=== PATIENT | male | born 1965 | race Caucasian/White ===

== ENCOUNTER 2017-08-30 05:32 | Inpatient (IN) | payer BC ==
--- NOTE | 2017-08-30 05:54 | ED ---
General Adult HPI - General Source: patient, RN notes reviewed Mode of arrival: ambulatory Limitations: no limitations <Shar Bell - Last Filed: 08/30/17 07:21> <Shar Chan - Last Filed: 08/30/17 09:40> - General Chief complaint: Urogenital Stated complaint: GROIN PAIN Time Seen by Provider: 08/30/17 05:35 - History of Present Illness Initial comments: This is a 51-year-old male who presents emergency Department complaining that he has some tenderness in the perineum area slightly to the left midline. Patient states this area began to hurt approximate one week ago. Patient states he seemed DrGamaliel Hdeze and then placed on antibiotics. Patient states the pain seems to be getting worse and his scrotum has become swollen and quite enlarged. Patient states the scrotum is not tender to palpation but is considerably larger. Patient has not noted any fever or chills. Patient denies any abdominal pain patient denies any nausea or vomiting. Patient has not had any drainage from any area. (Shar Bell) - Related Data Home Medications Medication Instructions Recorded Confirmed Albuterol Inhaler [Ventolin Hfa 1 - 2 puff INHALATION RT-Q6H PRN 12/28/14 Inhaler] [place]-3 Fatty Acids/Fish Oil [Fish 1 cap PO DAILY 12/28/14 08/30/17 Oil 1,000 mg Softgel] Omeprazole [PriLOSEC] 20 mg PO AC-BRKFST 12/28/14 08/30/17 Bisoprolol Fumarate [Zebeta] 10 mg PO DAILY 08/30/17 08/30/17 Ciprofloxacin HCl [Cipro] 500 mg PO Q12HR 08/30/17 08/30/17 Hydrochlorothiazide [Hydrodiuril] 25 mg PO DAILY 08/30/17 08/30/17 Olmesartan Medoxomil 40 mg PO DAILY 08/30/17 08/30/17 amLODIPine [Norvasc] 10 mg PO DAILY 08/30/17 08/30/17 Allergies Allergy/AdvReac Type Severity Reaction Status Date / Time No Known Allergies Allergy Verified 08/30/17 07:41 Review of Systems ROS Other: All systems not noted in ROS Statement are negative. <Shar Bell - Last Filed: 08/30/17 07:21> ROS Other: All systems not noted in ROS Statement are negative. <Shar Chan - Last Filed: 08/30/17 09:40> ROS Statement: Those systems with pertinent positive or pertinent negative responses have been documented in the HPI. Past Medical History Past Medical History: Hyperlipidemia, Hypertension Additional Past Medical History / Comment(s): diverticulitis History of Any Multi-Drug Resistant Organisms: None Reported Past Surgical History: Tonsillectomy Additional Past Surgical History / Comment(s): tail bone abscess, fistula, wisdom teeth Past Anesthesia/Blood Transfusion Reactions: No Reported Reaction Past Psychological History: No Psychological Hx Reported Smoking Status: Current every day smoker Past Alcohol Use History: Occasional Past Drug Use History: Marijuana - Past Family History Father Family Medical History: Cancer Additional Family Medical History / Comment(s): leukemia Mother Family Medical History: Cancer Additional Family Medical History / Comment(s): lung cancer Brother(s) Family Medical History: Cancer Additional Family Medical History / Comment(s): prostate cancer <Shar Bell - Last Filed: 08/30/17 07:21> General Exam Limitations: no limitations <Shar Bell - Last Filed: 08/30/17 07:21> <Shar Chan - Last Filed: 08/30/17 09:40> - General Exam Comments Initial Comments: GENERAL Patient is well-developed and well-nourished. Patient is in mild distress. EYES Patient's pupils are equal and round. Extraocular motion is intact SKIN Unremarkable NEURO The patient is alert and oriented 3 PYSCH Patient has normal interpersonal interactions. ABDOMINAL Patient has no abdominal tenderness MUSCULOSKELETAL All 4 times and full range of motion. GENITALIA Patient has some tenderness just to the left of midline in the perineum there is no area of fluctuance noted the scrotum is very edematous and nonpainful. ( Shar Bell) Vital Signs 08/30/17 08/30/17 05:38 09:17 Temperature 97.8 F Pulse Rate 98 86 Respiratory 18 14 Rate Blood Pressure 152/72 136/62 O2 Sat by Pulse 96 97 Oximetry Medical Decision Making <Shar Bell - Last Filed: 08/30/17 07:21> - Lab Data Result diagrams: 08/30/17 06:08 08/30/17 06:08 <Shar Chan B - Last Filed: 08/30/17 09:40> - Medical Decision Making Dr. Chan will be taking over the care of this patient at 7 AM (Shar Bell) - Lab Data Lab Results 08/30/17 08/30/17 08/30/17 Range/Units 06:08 06:08 06:08 WBC 22.9 H (3.8-10.6) k/uL RBC 4.16 L (4.30-5.90) m/uL Hgb 13.8 (13.0-17.5) gm/dL Hct 41.3 (39.0-53.0) % MCV 99.3 (80.0-100.0) fL MCH 33.3 (25.0-35.0) pg MCHC 33.5 (31.0-37.0) g/dL RDW 12.2 (11.5-15.5) % Plt Count 299 (150-450) k/uL Neutrophils % 81 % Lymphocytes % 8 % Monocytes % 9 % Eosinophils % 1 % Basophils % 0 % Neutrophils # 18.5 H (1.3-7.7) k/uL Lymphocytes # 1.8 (1.0-4.8) k/uL Monocytes # 2.1 H (0-1.0) k/uL Eosinophils # 0.1 (0-0.7) k/uL Basophils # 0.1 (0-0.2) k/uL Sodium 131 L (137-145) mmol/L Potassium 3.5 (3.5-5.1) mmol/L Chloride 93 L (98-107) mmol/L Carbon Dioxide 26 (22-30) mmol/L Anion Gap 12 mmol/L BUN 9 (9-20) mg/dL Creatinine 0.74 (0.66-1.25) mg/dL Est GFR (MDRD) Af Amer >60 (>60 ml/min/1.73 sqM) Est GFR (MDRD) Non-Af >60 (>60 ml/min/1.73 sqM) Glucose 111 H (74-99) mg/dL Plasma Lactic Acid Matthew (0.7-2.0) mmol/L Calcium 8.9 (8.4-10.2) mg/dL Total Bilirubin 0.6 (0.2-1.3) mg/dL AST 14 L (17-59) U/L ALT 20 L (21-72) U/L Alkaline Phosphatase 89 (38-126) U/L Total Protein 6.3 (6.3-8.2) g/dL Albumin 3.2 L (3.5-5.0) g/dL Urine Color Yellow Urine Appearance Clear (Clear) Urine pH 6.0 (5.0-8.0) Ur Specific [place] 1.017 (1.001-1.035) Urine Protein 1+ H (Negative) Urine Glucose (UA) Negative (Negative) Urine Ketones Negative (Negative) Urine Blood Trace H (Negative) Urine Nitrite Negative (Negative) Urine Bilirubin Negative (Negative) Urine Urobilinogen <2.0 (<2.0) mg/dL Ur Leukocyte Esterase Negative (Negative) Urine RBC <1 (0-5) /hpf Urine WBC 2 (0-5) /hpf Urine Mucus Occasional H (None) /hpf 08/30/17 Range/Units 06:08 WBC (3.8-10.6) k/uL RBC (4.30-5.90) m/uL Hgb (13.0-17.5) gm/dL Hct (39.0-53.0) % MCV (80.0-100.0) fL MCH (25.0-35.0) pg MCHC (31.0-37.0) g/dL RDW (11.5-15.5) % Plt Count (150-450) k/uL Neutrophils % % Lymphocytes % % Monocytes % % Eosinophils % % Basophils % % Neutrophils # (1.3-7.7) k/uL Lymphocytes # (1.0-4.8) k/uL Monocytes # (0-1.0) k/uL Eosinophils # (0-0.7) k/uL Basophils # (0-0.2) k/uL Sodium (137-145) mmol/L Potassium (3.5-5.1) mmol/L Chloride (98-107) mmol/L Carbon Dioxide (22-30) mmol/L Anion Gap mmol/L BUN (9-20) mg/dL Creatinine (0.66-1.25) mg/dL Est GFR (MDRD) Af Amer (>60 ml/min/1.73 sqM) Est GFR (MDRD) Non-Af (>60 ml/min/1.73 sqM) Glucose (74-99) mg/dL Plasma Lactic Acid Matthew 1.2 (0.7-2.0) mmol/L Calcium (8.4-10.2) mg/dL Total Bilirubin (0.2-1.3) mg/dL AST (17-59) U/L ALT (21-72) U/L Alkaline Phosphatase (38-126) U/L Total Protein (6.3-8.2) g/dL Albumin (3.5-5.0) g/dL Urine Color Urine Appearance (Clear) Urine pH (5.0-8.0) Ur Specific [place] (1.001-1.035) Urine Protein (Negative) Urine Glucose (UA) (Negative) Urine Ketones (Negative) Urine Blood (Negative) Urine Nitrite (Negative) Urine Bilirubin (Negative) Urine Urobilinogen (<2.0) mg/dL Ur Leukocyte Esterase (Negative) Urine RBC (0-5) /hpf Urine WBC (0-5) /hpf Urine Mucus (None) /hpf Disposition <Shar Bell - Last Filed: 08/30/17 07:21> <Shar Chan - Last Filed: 08/30/17 09:40> Clinical Impression: Perineal abscess, Failure of outpatient treatment Disposition: ADMITTED IP TO THIS [facility] Condition: Good Referrals: Danielle Fernández III, MD [Primary Care Provider] - 1-2 days
[2017-08-30] MEDS ORDERED: RX INFO: IV CONTRAST WAS GIVEN 1 EACH MISC MISCELLANE PRN (07:00)
[2017-08-30 07:19] LABS: ALT 20 U/L (21-72); AST 14 U/L (17-59); Albumin 3.2 g/dL (3.5-5.0); Alkaline Phosphatase 89 U/L (38-126); Anion Gap 12 mmol/L; Blood Urea Nitrogen 9 mg/dL (9-20); Calcium 8.9 mg/dL (8.4-10.2); Carbon Dioxide 26 mmol/L (22-30); Chloride 93 mmol/L (98-107); Glucose 111 mg/dL (74-99); Potassium 3.5 mmol/L (3.5-5.1); Sodium 131 mmol/L (137-145); Total Bilirubin 0.6 mg/dL (0.2-1.3); Total Protein 6.3 g/dL (6.3-8.2)
[2017-08-30 07:26] LABS: Basophils # (A) 0.1 k/uL (0-0.2); Basophils % (A) 0 %; Eosinophils # (A) 0.1 k/uL (0-0.7); Eosinophils % (A) 1 %; HCT 41.3 % (39.0-53.0); HGB 13.8 gm/dL (13.0-17.5); Lymphocytes # (A) 1.8 k/uL (1.0-4.8); Lymphocytes % (A) 8 %; MCH 33.3 pg (25.0-35.0); MCHC 33.5 g/dL (31.0-37.0); MCV 99.3 fL (80.0-100.0); Mean Platelet Volume 7.6; Monocytes # (A) 2.1 k/uL (0-1.0); Monocytes % (A) 9 %; Neutrophils # (A) 18.5 k/uL (1.3-7.7); Neutrophils % (A) 81 %; Platelet Count 299 k/uL (150-450); RBC 4.16 m/uL (4.30-5.90); RDW 12.2 % (11.5-15.5); WBC 22.9 k/uL (3.8-10.6)
[2017-08-30 07:34] LABS: Appearance,Urine Clear (Clear); Bilirubin,Urine Negative (Negative); Blood,Urine Trace (Negative); Color,Urine Yellow; Glucose,Urine (UA) Negative (Negative); Ketones,Urine Negative (Negative); Leukocyte Esterase,Urine Negative (Negative); Mucus,Urine Occasional /hpf; Nitrite,Urine Negative (Negative); Protein,Urine 1+ (Negative); RBC,Urine <1 /hpf (0-5); Specific Gravity,Urine 1.017 (1.001-1.035); Urobilinogen,Urine <2.0 mg/dL (<2.0); WBC,Urine 2 /hpf (0-5)
[2017-08-30] MEDS ORDERED: HYDROmorphone 2 MG/ML 1 ML SYRINGE IVP STA (07:56)
--- NOTE | 2017-08-30 08:19 | CT ---
EXAMINATION TYPE: CT pelvis w con DATE OF EXAM: 08/30/2017 COMPARISON: CT abdomen and pelvis December 27, 2014 HISTORY: Groin pain, Scrotum is hard CT DLP: 3297 mGycm Automated exposure control for dose reduction was used. CONTRAST: Performed with IV Contrast, patient injected with 100 ml mL of Omnipaque 300. FINDINGS: Some diverticula are seen scattered throughout the colon most prominent at sigmoid colon. There is no CT evidence for acute diverticulitis. There is simple appearing 2 cm cyst posteriorly mid pole level right kidney. Bladder is unremarkable. There are small fat-containing inguinal hernias bilaterally r edemonstrated. Anterior to the anus there is a thin-walled fluid collection to the left of midline measuring 8.8 oumar timeters x AP 3.5 cm transversely axial image 67 by approximately 6.2 cm craniocaudal dimension coron al image 40 at base of penis posterior and medial to the left inguinal canal and just inferior to pub ic symphysis. IMPRESSION: MODERATE-SIZED THIN-WALLED FLUID COLLECTION DETAILED ABOVE LEFT ASPECT BASE OF PENIS AT LEVEL OF T HE ANTERIOR PENILE URETHRA DIFFERENTIAL INCLUDES HEMATOMA, INFECTION WOULD NEED TO BE CONSIDERED IN A PPROPRIATE CLINICAL SITUATION. LIKELY TO FAR ANTERIOR TO REPRESENT A COWPER DUCT CYST. UROLOGY CONSUL TATION ADVISED.
[2017-08-30] MEDS ORDERED: PIPERACILLIN-TAZOBACTAM 3.375 GM in DEXTROSE/WATER 1 50ML.BAG IVPB STA (08:31)
[2017-08-30] MEDS ORDERED: VANCOMYCIN IV PER PHARMACY 1 EACH MISC MISCELLANE PRN (08:31)
[2017-08-30] MEDS ORDERED: VANCOMYCIN 2,000 MG in SODIUM CHLORIDE 0.9% 500 ML IVPB STA (08:35)
[2017-08-30] MEDS: SODIUM CHLORIDE 0.9% 1,000 ML IV ONE ×2 (09:59→17:29)
[2017-08-30] MEDS ORDERED: HYDROmorphone 0.5 MG/0.5 ML SYRINGE IVP STA (10:13)
[2017-08-30] MEDS ORDERED: HYDROmorphone 0.5 MG/0.5 ML SYRINGE IVP PRN (10:13)
--- NOTE | 2017-08-30 12:16 | P.GSCN ---
History of Present Illness Consult date: 08/30/17 History of present illness: The patient is a 51-year-old gentleman who approximately a week ago started developing perineal swelling. He does have a history of infection in this area. He was seen by Dr. Urena who placed him on antibiotics. He is seen again yesterday as the swelling seemed to be worse. Antibiotics were continued however ended up in the emergency room this morning with significant swelling. He had a computed tomography scan identifying a significant perineal abscess. He has secondary scrotal swelling and we are asked see the patient. He has had no problems urinating. He has no history of urinary tract infections. He has no other urologic issues. His urine is clear Review of Systems - Constitutional Reports anorexia, Reports chills - Gastrointestinal Reports as per HPI - Genitourinary Reports as per HPI Past Medical History Past Medical History: GERD/Reflux, Hypertension Additional Past Medical History / Comment(s): Current URI per pt, diverticulitis with small abscess, pt denies COPD. History of Any Multi-Drug Resistant Organisms: None Reported Past Surgical History: Tonsillectomy Additional Past Surgical History / Comment(s): tail bone abscess, rectal fistula , wisdom teeth extraction, colonoscopy. Past Anesthesia/Blood Transfusion Reactions: No Reported Reaction Smoking Status: Current every day smoker - Past Family History Father Family Medical History: Cancer Additional Family Medical History / Comment(s): leukemia Mother Family Medical History: Cancer Additional Family Medical History / Comment(s): lung cancer Brother(s) Family Medical History: Cancer Additional Family Medical History / Comment(s): prostate cancer Medications and Allergies Home Medications Medication Instructions Recorded Confirmed Type Albuterol Inhaler [Ventolin Hfa 1 - 2 puff INHALATION RT-Q6H PRN 12/28/14 History Inhaler] [place]-3 Fatty Acids/Fish Oil [Fish 1 cap PO DAILY 12/28/14 08/30/17 History Oil 1,000 mg Softgel] Omeprazole [PriLOSEC] 20 mg PO AC-BRKFST 12/28/14 08/30/17 History Bisoprolol Fumarate [Zebeta] 10 mg PO DAILY 08/30/17 08/30/17 History Ciprofloxacin HCl [Cipro] 500 mg PO Q12HR 08/30/17 08/30/17 History Hydrochlorothiazide [Hydrodiuril] 25 mg PO DAILY 08/30/17 08/30/17 History Olmesartan Medoxomil 40 mg PO DAILY 08/30/17 08/30/17 History amLODIPine [Norvasc] 10 mg PO DAILY 08/30/17 08/30/17 History Allergies Allergy/AdvReac Type Severity Reaction Status Date / Time No Known Allergies Allergy Verified 08/30/17 07:41 Surgical - Exam Vital Signs Temp Pulse Resp BP Pulse Ox 97.8 F 98 18 152/72 96 08/30/17 05:38 08/30/17 05:38 08/30/17 05:38 08/30/17 05:38 08/30/17 05:38 - General well developed, well nourished, moderate distress - Eyes PERRL - ENT no hearing loss - Neck trachea midline - Respiratory normal expansion, normal respiratory effort - Cardiovascular Rhythm: regular - Abdomen Abdomen: soft, non tender - Genitourinary The scrotum was slightly erythematous with edema. The testicles are normal. There is a peroneal mass extending lateral to the scrotum. It is tender without crepitus. - Integumentary no rash, no growths - Neurologic normal coordination, normal sensation - Musculoskeletal normal posture - Psychiatric oriented to time, oriented to person, oriented to place, speech is normal, memory intact Results - Labs 08/30/17 06:08 08/30/17 06:08 Abnormal Lab Results - Last 24 Hours (Table) 08/30/17 08/30/17 08/30/17 Range/Units 06:08 06:08 06:08 WBC 22.9 H (3.8-10.6) k/uL RBC 4.16 L (4.30-5.90) m/uL Neutrophils # 18.5 H (1.3-7.7) k/uL Monocytes # 2.1 H (0-1.0) k/uL Sodium 131 L (137-145) mmol/L Chloride 93 L (98-107) mmol/L Glucose 111 H (74-99) mg/dL AST 14 L (17-59) U/L ALT 20 L (21-72) U/L Albumin 3.2 L (3.5-5.0) g/dL Urine Protein 1+ H (Negative) Urine Blood Trace H (Negative) Urine Mucus Occasional H (None) /hpf Diabetes panel 08/30/17 Range/Units 06:08 Sodium 131 L (137-145) mmol/L Potassium 3.5 (3.5-5.1) mmol/L Chloride 93 L (98-107) mmol/L Carbon Dioxide 26 (22-30) mmol/L BUN 9 (9-20) mg/dL Creatinine 0.74 (0.66-1.25) mg/dL Glucose 111 H (74-99) mg/dL Calcium 8.9 (8.4-10.2) mg/dL AST 14 L (17-59) U/L ALT 20 L (21-72) U/L Alkaline Phosphatase 89 (38-126) U/L Total Protein 6.3 (6.3-8.2) g/dL Albumin 3.2 L (3.5-5.0) g/dL Calcium panel 08/30/17 Range/Units 06:08 Calcium 8.9 (8.4-10.2) mg/dL Albumin 3.2 L (3.5-5.0) g/dL Pituitary panel 08/30/17 Range/Units 06:08 Sodium 131 L (137-145) mmol/L Potassium 3.5 (3.5-5.1) mmol/L Chloride 93 L (98-107) mmol/L Carbon Dioxide 26 (22-30) mmol/L BUN 9 (9-20) mg/dL Creatinine 0.74 (0.66-1.25) mg/dL Glucose 111 H (74-99) mg/dL Calcium 8.9 (8.4-10.2) mg/dL Adrenal panel 08/30/17 Range/Units 06:08 Sodium 131 L (137-145) mmol/L Potassium 3.5 (3.5-5.1) mmol/L Chloride 93 L (98-107) mmol/L Carbon Dioxide 26 (22-30) mmol/L BUN 9 (9-20) mg/dL Creatinine 0.74 (0.66-1.25) mg/dL Glucose 111 H (74-99) mg/dL Calcium 8.9 (8.4-10.2) mg/dL Total Bilirubin 0.6 (0.2-1.3) mg/dL AST 14 L (17-59) U/L ALT 20 L (21-72) U/L Alkaline Phosphatase 89 (38-126) U/L Total Protein 6.3 (6.3-8.2) g/dL Albumin 3.2 L (3.5-5.0) g/dL Assessment and Plan Assessment: Impression: Perineal abscess, history of perirectal abscess. I suspect this is the same. His urine is clear and he has no voiding difficulty. I do not think this stems from the urethra or the epididymis. I concur with a surgical drainage. If I can be of further assistance please contact me.
--- NOTE | 2017-08-30 13:04 | P.GSHP ---
History of Present Illness H&P Date: 08/30/17 Chief Complaint: Perianal pain The patient is a 51-year-old white male who has a history of perianal abscesses and perineal abscess and left scrotal abscess in the past. Had incision and drainage a few times including her anal fistulectomy. He developed the pain in the area about a week ago the. Was placed on antibiotic. I saw him yesterday in the office and there was no drainable abscess at that time and my plan to see him back the tomorrow however he presented to the emergency room with more pain and swelling of which she states was quite rapid in the last 24 hours. He had a CT which showed SIGNIFICANT abscess in the perineum extending into the left scrotal area. No fever or chills. Change in his urination. Past history as above has had colonoscopy. Has a history of diverticulitis. Also history of hypertension and hyperlipidemia and some asthma. ALLERGIES none known. Medications as listed the including blood pressure and hyperlipidemia medications and albuterol. 4. Social history positive for smoking daily and social alcohol. 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 System review as above. No chest pain no cough or hemoptysis at this time. No blood in his stool. No urinary symptoms. On examination the patient is well-built well-nourished quite the overweight with a BMI of 38.3. Temperature is 98.7 heart rate 88 a minute. Blood pressure is normal. Head and neck are normal heart regular rhythm lungs are clear abdomen is obese soft nontender no masses or organomegaly. Well perianal exam does reveal that now quite a protuberant swelling in the peritoneal region between the anus and the scrotum mostly present left side with a little fluctuation. Has 2 openings of in the left scrotum. He had a previous fistula but no evidence of any drainage. Now. Some cellulitis of the left scrotum is well. 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 Impression. Perineal abscess probably originating from the rectum area. History of hypertension obesity hyperlipidemia asthma. Recommendation incision and drainage since radiology does not feel comfortable draining this percutaneously. This was explained to the patient including potential complication particular of recurrence bleeding infection sepsis etc. he understood and agree to proceed. Past Medical History Past Medical History: GERD/Reflux, Hypertension Additional Past Medical History / Comment(s): Current URI per pt, diverticulitis with small abscess, pt denies COPD. History of Any Multi-Drug Resistant Organisms: None Reported Past Surgical History: Tonsillectomy Additional Past Surgical History / Comment(s): tail bone abscess, rectal fistula , wisdom teeth extraction, colonoscopy. Past Anesthesia/Blood Transfusion Reactions: No Reported Reaction Smoking Status: Current every day smoker - Past Family History Father Family Medical History: Cancer Additional Family Medical History / Comment(s): leukemia Mother Family Medical History: Cancer Additional Family Medical History / Comment(s): lung cancer Brother(s) Family Medical History: Cancer Additional Family Medical History / Comment(s): prostate cancer Medications and Allergies Home Medications Medication Instructions Recorded Confirmed Type Albuterol Inhaler [Ventolin Hfa 1 - 2 puff INHALATION RT-Q6H PRN 12/28/14 History Inhaler] [place]-3 Fatty Acids/Fish Oil [Fish 1 cap PO DAILY 12/28/14 08/30/17 History Oil 1,000 mg Softgel] Omeprazole [PriLOSEC] 20 mg PO AC-BRKFST 12/28/14 08/30/17 History Bisoprolol Fumarate [Zebeta] 10 mg PO DAILY 08/30/17 08/30/17 History Ciprofloxacin HCl [Cipro] 500 mg PO Q12HR 08/30/17 08/30/17 History Hydrochlorothiazide [Hydrodiuril] 25 mg PO DAILY 08/30/17 08/30/17 History Olmesartan Medoxomil 40 mg PO DAILY 08/30/17 08/30/17 History amLODIPine [Norvasc] 10 mg PO DAILY 08/30/17 08/30/17 History Allergies Allergy/AdvReac Type Severity Reaction Status Date / Time No Known Allergies Allergy Verified 08/30/17 07:41 Surgical - Exam Vital Signs Temp Pulse Resp BP Pulse Ox 97.8 F 98 18 152/72 96 08/30/17 05:38 08/30/17 05:38 08/30/17 05:38 08/30/17 05:38 08/30/17 05:38 Results - Labs 08/30/17 06:08 08/30/17 06:08 Abnormal Lab Results - Last 24 Hours (Table) 08/30/17 08/30/17 08/30/17 Range/Units 06:08 06:08 06:08 WBC 22.9 H (3.8-10.6) k/uL RBC 4.16 L (4.30-5.90) m/uL Neutrophils # 18.5 H (1.3-7.7) k/uL Monocytes # 2.1 H (0-1.0) k/uL Sodium 131 L (137-145) mmol/L Chloride 93 L (98-107) mmol/L Glucose 111 H (74-99) mg/dL AST 14 L (17-59) U/L ALT 20 L (21-72) U/L Albumin 3.2 L (3.5-5.0) g/dL Urine Protein 1+ H (Negative) Urine Blood Trace H (Negative) Urine Mucus Occasional H (None) /hpf Diabetes panel 08/30/17 Range/Units 06:08 Sodium 131 L (137-145) mmol/L Potassium 3.5 (3.5-5.1) mmol/L Chloride 93 L (98-107) mmol/L Carbon Dioxide 26 (22-30) mmol/L BUN 9 (9-20) mg/dL Creatinine 0.74 (0.66-1.25) mg/dL Glucose 111 H (74-99) mg/dL Calcium 8.9 (8.4-10.2) mg/dL AST 14 L (17-59) U/L ALT 20 L (21-72) U/L Alkaline Phosphatase 89 (38-126) U/L Total Protein 6.3 (6.3-8.2) g/dL Albumin 3.2 L (3.5-5.0) g/dL Calcium panel 08/30/17 Range/Units 06:08 Calcium 8.9 (8.4-10.2) mg/dL Albumin 3.2 L (3.5-5.0) g/dL Pituitary panel 08/30/17 Range/Units 06:08 Sodium 131 L (137-145) mmol/L Potassium 3.5 (3.5-5.1) mmol/L Chloride 93 L (98-107) mmol/L Carbon Dioxide 26 (22-30) mmol/L BUN 9 (9-20) mg/dL Creatinine 0.74 (0.66-1.25) mg/dL Glucose 111 H (74-99) mg/dL Calcium 8.9 (8.4-10.2) mg/dL Adrenal panel 08/30/17 Range/Units 06:08 Sodium 131 L (137-145) mmol/L Potassium 3.5 (3.5-5.1) mmol/L Chloride 93 L (98-107) mmol/L Carbon Dioxide 26 (22-30) mmol/L BUN 9 (9-20) mg/dL Creatinine 0.74 (0.66-1.25) mg/dL Glucose 111 H (74-99) mg/dL Calcium 8.9 (8.4-10.2) mg/dL Total Bilirubin 0.6 (0.2-1.3) mg/dL AST 14 L (17-59) U/L ALT 20 L (21-72) U/L Alkaline Phosphatase 89 (38-126) U/L Total Protein 6.3 (6.3-8.2) g/dL Albumin 3.2 L (3.5-5.0) g/dL
[2017-08-30] MEDS ORDERED: IV FLUID CONTINUATION 1,000 ML IV ONE (14:22)
[2017-08-30] MEDS ORDERED: BUPIVACAINE (PF) 0.5% 30 ML VIAL SQ ONE (14:32)
[2017-08-30] MEDS ORDERED: PROPOFOL 10 MG/ML 20 ML VIAL IV ONE (14:37)
[2017-08-30] MEDS ORDERED: fentaNYL (PF) 50 MCG/ML 2 ML AMP ONE (14:37)
[2017-08-30] MEDS ORDERED: HYDROmorphone (PF) 1 MG/ML ONE (14:37)
[2017-08-30] MEDS ORDERED: DEXAMETHASONE SOD PHOS (MDV) 100 MG/10 ML VIAL ONE (14:37)
[2017-08-30] MEDS ORDERED: LIDOCAINE 1% INJ 10MG/ML (20 ML MDV) ONE (14:37)
[2017-08-30] MEDS ORDERED: ONDANSETRON 4 MG/2 ML VIAL ONE (14:37)
[2017-08-30] MEDS ORDERED: MIDAZOLAM 2 MG/2 ML VIAL ONE (14:37)
[2017-08-30] MEDS ORDERED: SUCCINYLCHOLINE CHLORIDE VIAL 200 MG/10 ML VIAL IV ONE (14:37)
--- NOTE | 2017-08-30 15:47 | P.OP ---
Date of Procedure: 08/30/17 Preoperative Diagnosis: Perineal abscess Postoperative Diagnosis: Large pus containing perineal abscess with extension into base of scrotum Procedure(s) Performed: Incision and drainage of perineal abscess/scrotal abscess Anesthesia: ELIJAH Surgeon: Cedrick Grimes Estimated Blood Loss (ml): 10 Pathology: other (Aerobic and anaerobic cultures sent) Condition: stable Disposition: floor Indications for Procedure: 51-year-old male presented to the emergency department complaining of pain in his perineum. On workup he was found to have a large abscess at that location. He did have a leukocytosis above 20 and was febrile. Antibiotics were started and the patient was taken to operating room for incision and drainage of this abscess. He was explained the risks, benefits and alternatives prior to the procedure. He did provide consent prior to attending the operating suite. Operative Findings: Large pocket of foul-smelling, purulent material drained, approximately 80 mL. The abscess pocket was in the perineum and extended to the base of the scrotum. Description of Procedure: The patient was brought into the operating suite and placed in supine position on the operating table. Sedation was provided by anesthesia and the patient underwent endotracheal intubation. The patient was then placed in lithotomy position. He was prepped and draped in regular sterile fashion. A perineal incision was made in no immediate output of purulent material was noted. A 18- gauge needle attached to a syringe was then inserted to isolate the pocket. 10 mL of purulent material was drained and dissection was carried in the direction of the purulent pocket. The purulent pocket was noted approximately 3 cm deep and once entered a copious amount of purulent material began draining. With examination it was noted that this pocket extended into the base of the scrotum. Squeezing the scrotum did result in additional purulent expulsion. Cultures were sent of the purulent output. Copious amounts of irrigation was then placed into this pocket. A pulse highway commissioner was used with 1 L of fluid used as irrigation. At this point no additional purulent material was noted. Packing was placed within the pocket. Sterile dressing was applied. The patient was awakened in the operating suite and taken to postanesthesia care unit in stable condition.
[2017-08-30] MEDS ORDERED: ALBUTEROL NEBULIZED 2.5 MG/3 ML INHALATION ONE (16:13)
[2017-08-30] MEDS ORDERED: ALBUTEROL NEBULIZED 2.5 MG/3 ML INHALATION PRN (17:21)
[2017-08-30] MEDS: ACETAMINOPHEN TAB 325 MG TAB PO PRN (17:24)
--- NOTE | 2017-08-30 17:52 | P.CONS ---
History of Present Illness - Reason for Consult Consult date: 08/30/17 Medical management of hypertension and other medical problems - Chief Complaint Pain in the perianal area - History of Present Illness Patient is a 51-year-old male with a known history of hypertension, hyperlipidemia, GERD and morbid obesity came to ER with complaints of pain in the perianal area for the past 1 week. Patient was seen in the clinic and took one day of antibiotics without much improvement and presented back to ER. Patient had increased swelling and pain during last 24 hours. Patient does have a history of perineal abscess incision and drainage about 10 years ago. Patient denied any fever or chills. Denied any nausea vomiting or abdominal pain. No chest pain or shortness of breath. CT pelvis showed a showed significant abscess in the perineum extending into the left scrotal area. Patient underwent I&D by surgery today. Patient has been febrile with T-max 103.2 while in the hospital Review of Systems Constitutional: Patient denies any fever or chills . No generalized weakness or weight loss. Abdomen: Patient denied nausea vomiting and diarrhea and abdominal pain. Cardiovascular: Patient denies any chest pain or short of breath no palpitations. Respiratory: patient denied any cough is from production. No shortness of breath Neurologic: Patient denied any numbness or tingling headache. Musculoskeletal: Patient denies any complaints of joint swelling or deformity. Skin: Negative Psychiatric: Negative Endocrine: No heat or cold intolerance. No recent weight gain. Genitourinary: Patient does have pain and swelling in that area. No hematuria no dysuria All other 14 point ROS negative except the above Past Medical History Past Medical History: GERD/Reflux, Hypertension Additional Past Medical History / Comment(s): Current URI per pt, diverticulitis with small abscess, pt denies COPD. History of Any Multi-Drug Resistant Organisms: None Reported Past Surgical History: Tonsillectomy Additional Past Surgical History / Comment(s): tail bone abscess, rectal fistula , wisdom teeth extraction, colonoscopy. Past Anesthesia/Blood Transfusion Reactions: No Reported Reaction Smoking Status: Current every day smoker - Past Family History Father Family Medical History: Cancer Additional Family Medical History / Comment(s): leukemia Mother Family Medical History: Cancer Additional Family Medical History / Comment(s): lung cancer Brother(s) Family Medical History: Cancer Additional Family Medical History / Comment(s): prostate cancer Medications and Allergies Home Medications Medication Instructions Recorded Confirmed Type Albuterol Inhaler [Ventolin Hfa 1 - 2 puff INHALATION RT-Q6H PRN 12/28/14 History Inhaler] [place]-3 Fatty Acids/Fish Oil [Fish 1 cap PO DAILY 12/28/14 08/30/17 History Oil 1,000 mg Softgel] Omeprazole [PriLOSEC] 20 mg PO AC-BRKFST 12/28/14 08/30/17 History Bisoprolol Fumarate [Zebeta] 10 mg PO DAILY 08/30/17 08/30/17 History Ciprofloxacin HCl [Cipro] 500 mg PO Q12HR 08/30/17 08/30/17 History Hydrochlorothiazide [Hydrodiuril] 25 mg PO DAILY 08/30/17 08/30/17 History Olmesartan Medoxomil 40 mg PO DAILY 08/30/17 08/30/17 History amLODIPine [Norvasc] 10 mg PO DAILY 08/30/17 08/30/17 History Allergies Allergy/AdvReac Type Severity Reaction Status Date / Time No Known Allergies Allergy Verified 08/30/17 07:41 Physical Exam Vitals: Vital Signs Temp Pulse Pulse Pulse Resp BP BP 08/30/17 16:58 101.2 F H 94 16 129/60 08/30/17 16:15 93 16 129/63 08/30/17 15:42 101.6 F H 101 H 138/93 08/30/17 15:00 102.3 F H 100 18 144/75 08/30/17 14:23 103.2 F H 95 20 144/79 08/30/17 10:37 98.1 F 92 18 156/89 08/30/17 10:20 98.6 F 85 16 135/60 08/30/17 09:55 98.6 F 85 16 135/60 08/30/17 09:17 86 14 136/62 08/30/17 05:38 97.8 F 98 18 152/72 Pulse Ox 08/30/17 16:58 90 L 08/30/17 16:15 92 L 08/30/17 15:42 94 L 08/30/17 15:00 94 L 08/30/17 14:23 94 L 08/30/17 10:37 98 08/30/17 10:20 96 08/30/17 09:55 96 08/30/17 09:17 97 08/30/17 05:38 96 Intake and Output 08/30/17 08/30/17 08/30/17 06:59 14:59 22:59 Intake Total 350 0 Output Total 25 Balance 325 0 Intake: IV 350 0 Output: Estimated Blood Loss 25 Other: # Voids 1 Weight 135.171 kg PHYSICAL EXAMINATION: Patient is lying in the bed comfortably, no acute distress, awake alert and oriented.. HEENT: Normocephalic. Neck is supple. Pupils reactive. Nostrils clear. Oral cavity is moist. Ears reveal no drainage. Neck reveals no JVD, carotid bruits, or thyromegaly. CHEST EXAMINATION: Trachea is central. Symmetrical expansion. Lung thompson clear to auscultation and percussion. CARDIAC: Normal S1, S2 with no gallops. No murmurs ABDOMEN: Soft. Bowel sounds normal. No organomegaly. No abdominal bruits. Extremities: reveal no edema. No clubbing or cyanosis Neurologically awake, alert, oriented x3 with well-coordinated movements. No focal deficits noted Skin: No rash or skin lesions. Psychiatric: Coperative. Nonsuicidal Musculoskeletal: No joint swelling or deformity. Normal range of motion. Results CBC & Chem 7: 08/30/17 06:08 08/30/17 06:08 Labs: Abnormal Lab Results - Last 24 Hours (Table) 08/30/17 08/30/17 08/30/17 Range/Units 06:08 06:08 06:08 WBC 22.9 H (3.8-10.6) k/uL RBC 4.16 L (4.30-5.90) m/uL Neutrophils # 18.5 H (1.3-7.7) k/uL Monocytes # 2.1 H (0-1.0) k/uL Sodium 131 L (137-145) mmol/L Chloride 93 L (98-107) mmol/L Glucose 111 H (74-99) mg/dL AST 14 L (17-59) U/L ALT 20 L (21-72) U/L Albumin 3.2 L (3.5-5.0) g/dL Urine Protein 1+ H (Negative) Urine Blood Trace H (Negative) Urine Mucus Occasional H (None) /hpf Assessment and Plan Assessment: Sepsis secondary to perineal abscess Extensive perineal abscess status post I&D on 08/30/2017 Previous history of perineal abscess Hypertension. Blood pressure is not elevated. Will hold antihypertensives at this time Hyperlipidemia GERD Morbid obesity BMI 38.3 Cigar smoking and alcohol abuse History of paroxysmal atrial fibrillation. Rate controlled with beta blockers. Patient will need aspirin upon discharge DVT prophylaxis Plan: Patient will be continued on broad-spectrum antibiotics in the form of vancomycin and Zosyn. Follow up blood cultures and wound cultures. Continue the IV hydration. Follow up closely. Further recommendations based on the clinical course. Time with Patient: Greater than 30
[2017-08-30] MEDS ORDERED: NALOXONE 0.4 MG/ML 1 ML VIAL IV PRN (19:27)
[2017-08-30] MEDS ORDERED: LACTATED RINGERS 1,000 ML IV ONE (19:27)
[2017-08-30] MEDS ORDERED: ONDANSETRON 4 MG/2 ML VIAL IVP PRN (19:27)
[2017-08-30] MEDS: PIPERACILLIN-TAZOBACTAM 3.375 GM in DEXTROSE/WATER 1 50ML.BAG IVPB SCH (21:05)
[2017-08-30] MEDS: FAMOTIDINE 20 MG TAB PO SCH (21:25)
[2017-08-30] MEDS: DOCUSATE 100 MG CAP PO SCH (21:25)
[2017-08-31] MEDS: VANCOMYCIN 2,000 MG in SODIUM CHLORIDE 0.9% 500 ML IVPB SCH ×3 (00:39→20:59)
[2017-08-31] MEDS: PIPERACILLIN-TAZOBACTAM 3.375 GM in DEXTROSE/WATER 1 50ML.BAG IVPB SCH ×3 (04:40→18:52)
[2017-08-31 07:20] LABS: Glucose,Whole Blood 131 mg/dL (75-99)
[2017-08-31] MEDS: DOCUSATE 100 MG CAP PO SCH ×2 (07:45→20:59)
[2017-08-31] MEDS: ENOXAPARIN 40 MG/0.4 ML SYRINGE SQ SCH (07:45)
[2017-08-31] MEDS: BISOPROLOL 5 MG TAB PO SCH (07:45)
[2017-08-31] MEDS: PANTOPRAZOLE 40 MG TABLET PO SCH (07:46)
[2017-08-31 08:10] LABS: Basophils # (A) 0.1 k/uL (0-0.2); Basophils % (A) 0 %; Eosinophils # (A) 0.1 k/uL (0-0.7); Eosinophils % (A) 0 %; HCT 40.7 % (39.0-53.0); Lymphocytes # (A) 1.2 k/uL (1.0-4.8); Lymphocytes % (A) 5 %; MCH 33.2 pg (25.0-35.0); MCV 103.5 fL (80.0-100.0); Macrocytosis Slight; Mean Platelet Volume 7.2; Monocytes # (A) 1.6 k/uL (0-1.0); Monocytes % (A) 7 %; Neutrophils # (A) 20.6 k/uL (1.3-7.7); Neutrophils % (A) 86 %; Platelet Count 293 k/uL (150-450); RBC 3.93 m/uL (4.30-5.90); RDW 12.2 % (11.5-15.5); WBC 23.9 k/uL (3.8-10.6)
[2017-08-31 08:38] LABS: ALT 25 U/L (21-72); AST 15 U/L (17-59); Albumin 2.9 g/dL (3.5-5.0); Alkaline Phosphatase 97 U/L (38-126); Anion Gap 9 mmol/L; Blood Urea Nitrogen 16 mg/dL (9-20); Calcium 8.8 mg/dL (8.4-10.2); Carbon Dioxide 27 mmol/L (22-30); Chloride 100 mmol/L (98-107); Glucose 121 mg/dL (74-99); Potassium 3.8 mmol/L (3.5-5.1); Sodium 136 mmol/L (137-145); Total Bilirubin 0.4 mg/dL (0.2-1.3); Total Protein 5.7 g/dL (6.3-8.2)
[2017-08-31] MEDS: FAMOTIDINE 20 MG TAB PO SCH (09:12)
[2017-08-31] MEDS: HYDROmorphone 0.5 MG/0.5 ML SYRINGE IVP PRN ×2 (11:30→14:42)
[2017-08-31] MEDS: THIAMINE 100 MG TAB PO SCH (12:05)
[2017-08-31] MEDS: MULTIVITAMINS, THERA 1 EACH TAB PO SCH (12:05)
--- NOTE | 2017-08-31 15:25 | P.PN ---
Subjective Progress Note Date: 08/31/17 Patient seen and examined at bedside. He states he feels much better than at admission. He states that pressure has been relieved in his perineum. He denies any nausea and vomiting. He denies any febrile episodes. He states that he is ambulating much better. He states that he has had continued drainage from the incision site. Objective - Vital Signs Vital signs: Vital Signs Temp 98.1 F 08/31/17 15:00 Pulse 81 08/31/17 15:00 Resp 16 08/31/17 15:00 BP 143/70 08/31/17 15:00 Pulse Ox 92 L 08/31/17 15:00 Intake & Output 08/30/17 08/31/17 08/31/17 18:59 06:59 18:59 Intake Total 350 3290 Output Total 25 Balance 325 3290 Intake: IV 350 Intake, IV Titration 2100 Amount Lactated Ringers 1,000 ml 1500 @ 125 mls/hr IV .Q8H [facility] Rx#:[id number] Piperacillin-Tazobactam 3 100 .375 gm In Dextrose/Water 1 50ml.bag @ 12.5 mls/hr IVPB Q8H [facility] Rx#: [id number] Vancomycin 2,000 mg In 500 Sodium Chloride 0.9% 500 ml @ 167 mls/hr IVPB ONCE [facility] Rx#:[id number] Oral 1190 Output: Estimated Blood Loss 25 Other: # Voids 1 5 - Gastrointestinal Gastrointestinal Comment(s): Soft, nontender, nondistended, no rebound, no guarding - Genitourinary Genitourinary Comment(s): Perineal incision site with packing in place, mild foul smelling drainage continues - Psychiatric Psychiatric: Present: A&O x's 3 - Labs CBC & Chem 7: 08/31/17 07:39 08/31/17 07:39 Labs: Abnormal Lab Results - Last 24 Hours (Table) 08/31/17 08/31/17 08/31/17 Range/Units 07:15 07:39 07:39 WBC 23.9 H (3.8-10.6) k/uL RBC 3.93 L (4.30-5.90) m/uL MCV 103.5 H (80.0-100.0) fL Neutrophils # 20.6 H (1.3-7.7) k/uL Monocytes # 1.6 H (0-1.0) k/uL Sodium 136 L (137-145) mmol/L Glucose 121 H (74-99) mg/dL POC Glucose (mg/dL) 131 H (75-99) mg/dL AST 15 L (17-59) U/L Total Protein 5.7 L (6.3-8.2) g/dL Albumin 2.9 L (3.5-5.0) g/dL Microbiology - Last 24 Hours (Table) 08/30/17 06:08 Blood Culture - Final Blood 08/30/17 15:24 Gram Stain - Preliminary Other - Other Wound Culture - Preliminary 08/30/17 15:24 Anaerobic Culture - Preliminary Other - Other Assessment and Plan (1) Perineal abscess Current Visit: Yes Status: Acute Code(s): L02.215 - CUTANEOUS ABSCESS OF PERINEUM SNOMED Code(s): 59610806 Plan: 51-year-old male with perineal and scrotal abscess - Packing removed - Continue local wound care - Infectious disease consult placed, appreciate recommendations on antibiotics - Continue hygiene maintenance and perineum - Will follow leukocytosis
--- NOTE | 2017-08-31 17:23 | CONS ---
CONSULTATION DATE OF SERVICE: 08/31/2017. REASON FOR CONSULTATION: A perineal abscess. HISTORY OF PRESENT ILLNESS: The patient is a 51-year-old male who presented to the [facility] ER yesterday morning with chief complaints of pain in the perineum area that he has for about a week. The patient did not recall if he has any boil that how it started. He described to be more of a noticing like a boil or pressure in his deep perineal area that has been getting worse for the last 1 week. Pain described to be dull aching, at times, throbbing almost 10/10, and was severe with no significant drainage. Did have some chills but denies any high-grade fever. Apparently the patient has been treated in outpatient setting with more antibiotic. However, the patient not sure about the name of those antibiotics. With worsening pain, he presented to the [facility] ER where the patient did have a pelvic CT done. It did show moderate site that was fluid collection 8.8 cm and 3.5 cm anterior to the anal area with some diverticulosis but no diverticulitis or any connection to the gut floor. The patient has been subsequently taken to the OR by General surgery. He was noticed to have a large pus containing perineal abscess with extension to the base of the scrotum. Culture has been obtained. The patient has been treated with Zosyn and vancomycin. ID was consulted for further recommendation regarding antibiotic therapy. Since the patient has been admitted to the hospital, he did have a fever of 103-102 degrees Fahrenheit. He did have some tachycardia and his white count was elevated to 2.9 up to 23.9 today. REVIEW OF SYSTEMS: Constitutionally: Positive for weakness along with the fever. Eyes: No complaint. ENT: No complaint. Respiratory: Mild cough. Cardiovascular: No complaint. Genitourinary: As per HPI. Gastrointestinal: As per HPI. Musculoskeletal no complaint. INTEGUMENTARY: As per HPI. PSYCHOLOGICAL: No complaint. Endocrine no complaint. Neurological no complaint. PAST MEDICAL HISTORY: Hypertension with gastroesophageal reflux disease, diverticulitis, COPD. PAST SURGICAL HISTORY: Tonsillectomy, tailbone abscess, rectal fistula with obstruction, colonoscopy. SOCIAL HISTORY: The patient is currently an everyday smoker. No drinking or drug use. FAMILY HISTORY: Father with history of leukemia. Mother with history of lung cancer and father history of prostate cancer. ALLERGIES: No known drug allergies. MEDICATIONS: The patient is currently on Tylenol, Mott, Ventolin, Colace, Lovenox, Dilaudid, vancomycin, pharmacy to dose, Zosyn and Protonix. EXAMINATION: Blood pressure is 133/73 with a pulse of 72, temperature 98.5, T-max 103, he is 95% room air. General description is a middle-aged male lying in bed in no distress. No tachypnea or accessory muscles of respiration use. HEENT: Shows no pallor or scleral icterus. Oral mucosa membranes dry. Neck trachea central. No thyromegaly. Lungs unlabored breathing. Clear to auscultation anteriorly. Heart S1, S2. Regular rate and rhythm. ABDOMEN: Soft, no tenderness. No guarding. No rigidity. Extremities: No edema of the feet. Examination of the genitourinary area: The patient did have a induration in the deep perineal area. No significant scrotal induration was noted but was swollen and red. No drainage. Slightly tender to touch. Neurological patient is awake, alert, oriented x3. Mood and affect normal. LABS: Hemoglobin is 13, white count 23.9 with a BUN of 15, creatinine 1.03. Electrolytes have been normal. Urine has been negative. CT report as mentioned above. DIAGNOSTIC IMPRESSION AND PLAN: Patient with sepsis in a patient admitted to the hospital with pain in the perineal area of 1 week duration. The patient did have fever of 103 degrees Fahrenheit, did have elevated white count of 23.9K with a heart rate of 100 meeting criteria for SIRS. Source is the perineal abscess, possibly a gram-positive skin shahid, however, in view of the close proximity to the anal rectal area underlying lower abdomen infection not entirely excluded. The patient needs to be on broad-spectrum antibiotics to prevent any worsening sepsis and his labs to monitor closely to prevent any toxicity with medication that needs to be used to treat his underlying infection. PLAN: 1. Vancomycin pharmacy to dose to target trough 15 and Zosyn at 3.375 IV piggyback given q.8 hours. 2. Aggressive IV fluid. 3. We will watch his kidney function as well as white count and culture closely. 4. Depending upon his clinical response and the culture, will adjust his medication further and determine discharge antibiotics. Thank you for this consultation. Will follow this patient along with you. MMODL / IJN: [id number] / [place]
[2017-08-31] MEDS: HYDROcodone/APAP 5-325MG 1 EACH TAB PO PRN (21:05)
[2017-09-01] MEDS: HYDROmorphone 0.5 MG/0.5 ML SYRINGE IVP PRN (01:06)
[2017-09-01] MEDS: PIPERACILLIN-TAZOBACTAM 3.375 GM in DEXTROSE/WATER 1 50ML.BAG IVPB SCH ×4 (02:15→20:00)
[2017-09-01] MEDS ORDERED: VANCOMYCIN TROUGH DUE 1 EACH MISC MISCELLANE ONE (08:00)
[2017-09-01 08:03] LABS: Basophils # (A) 0.1 k/uL (0-0.2); Basophils % (A) 0 %; Eosinophils # (A) 0.2 k/uL (0-0.7); Eosinophils % (A) 1 %; HCT 39.8 % (39.0-53.0); HGB 12.8 gm/dL (13.0-17.5); Lymphocytes # (A) 1.5 k/uL (1.0-4.8); Lymphocytes % (A) 10 %; MCH 32.8 pg (25.0-35.0); MCHC 32.2 g/dL (31.0-37.0); MCV 101.6 fL (80.0-100.0); Mean Platelet Volume 7.1; Monocytes # (A) 1.2 k/uL (0-1.0); Monocytes % (A) 8 %; Neutrophils # (A) 12.1 k/uL (1.3-7.7); Neutrophils % (A) 79 %; Platelet Count 300 k/uL (150-450); RBC 3.91 m/uL (4.30-5.90); RDW 12.2 % (11.5-15.5); WBC 15.4 k/uL (3.8-10.6)
[2017-09-01 08:12] LABS: Anion Gap 11 mmol/L; Blood Urea Nitrogen 16 mg/dL (9-20); Calcium 8.7 mg/dL (8.4-10.2); Carbon Dioxide 26 mmol/L (22-30); Chloride 100 mmol/L (98-107); Glucose 94 mg/dL (74-99); Potassium 3.8 mmol/L (3.5-5.1); Sodium 137 mmol/L (137-145)
[2017-09-01] MEDS: VANCOMYCIN 2,000 MG in SODIUM CHLORIDE 0.9% 500 ML IVPB SCH ×2 (08:26→16:02)
[2017-09-01] MEDS: BISOPROLOL 5 MG TAB PO SCH (08:51)
[2017-09-01] MEDS: PANTOPRAZOLE 40 MG TABLET PO SCH (08:51)
[2017-09-01] MEDS: DOCUSATE 100 MG CAP PO SCH ×2 (08:52→20:34)
[2017-09-01] MEDS: ENOXAPARIN 40 MG/0.4 ML SYRINGE SQ SCH (08:52)
--- NOTE | 2017-09-01 09:09 | CDI ---
Last Revision, June 2017 Documentation Clarification Form Date: 09/01/2017 8:48:00 AM From: Darcy Tobias RN Admit Date: 08/30/2017 9:37:00 AM Patient Name: Earnest Gonzalez Visit Number: [id number] ATTENTION: The Clinical Documentation Specialists (CDI) and [facility] Coding Staff appreciate your assistance in clarifying documentation. Please respond to the clarification below the line at the bottom and electronically sign. The CDI & [facility] Coding staff will review the response and follow-up if needed. Please note: Queries are made part of the Legal Health Record. If you have any questions, please contact the author of this message via ITS. Dr. Cedrick Grimes, Documentation and location in medical record included Consultation note by Dr. Mancilla he states "sepsis". History/Risk Factors: GERD, HTN, tail bone abscess, hyperlipidemia, asthma, obesity Clinical Indicators: WBC on admission: 22.9 Lactic acid on admission: 1.2 Blood cultures: gram negative rods, gram negative bacilli Vitals signs on admission: T 97.8, P 98, R 18, 152/62 , 96% RA. 2/13- T 103.2 Other Clinical Indicators: Wound culture: moderate Polymorphonuclear leukocytes , many gram positive cocci, moderate gram negative bacilli Treatment: ID Consult: Sr. Mancilla Antibiotics: IV Vanco, IV Piperacillin In your professional opinion, please clarify if these findings signify one of the following conditions, whether the condition is POA, and cause, if known: Sepsis Severe Sepsis Other, please specify Unable to determine Present on Admission: Yes No Please continue to document in your progress notes and discharge summary in order to capture severity of illness and risk of mortality. Include clinical findings that support your diagnosis. MTDD
[2017-09-01] MEDS: THIAMINE 100 MG TAB PO SCH (12:26)
[2017-09-01] MEDS: MULTIVITAMINS, THERA 1 EACH TAB PO SCH (12:27)
[2017-09-01] MEDS: ACETAMINOPHEN TAB 325 MG TAB PO PRN (20:06)
[2017-09-01] MEDS: HYDROmorphone 2 MG TAB PO PRN (20:06)
--- NOTE | 2017-09-01 21:31 | P.PN ---
Subjective Progress Note Date: 09/01/17 Pt seen and examined at bedside. States pain is much improved. States pressure has improved. Complains of scrotal swelling. Denies fevers. Has some mild drainage from I and D site. Objective - Vital Signs Vital signs: Vital Signs Temp 99.0 F 09/01/17 15:00 Pulse 71 09/01/17 20:46 Resp 19 09/01/17 20:46 BP 163/84 09/01/17 15:00 Pulse Ox 95 09/01/17 15:00 Intake & Output 09/01/17 09/01/17 09/02/17 06:59 18:59 06:59 Intake Total 550 Balance 550 Weight 135.171 kg Intake: Intake, IV Titration 550 Amount Piperacillin-Tazobactam 3 50 .375 gm In Dextrose/Water 1 50ml.bag @ 12.5 mls/hr IVPB Q8H [facility] Rx#: [id number] Vancomycin 2,000 mg In 500 Sodium Chloride 0.9% 500 ml @ 167 mls/hr IVPB Q8H [facility] Rx#:[id number] Other: Voiding Method Toilet # Voids 1 1 - Constitutional General appearance: Present: cooperative, no acute distress - Gastrointestinal Gastrointestinal Comment(s): soft, nontender, nondistended, no rebound/guarding - Genitourinary Genitourinary Comment(s): Perineal incision site with continued mild serous drainage, scrotal edema noted - mild - Psychiatric Psychiatric: Present: A&O x's 3, appropriate affect - Labs CBC & Chem 7: 09/01/17 07:24 09/01/17 07:24 Labs: Abnormal Lab Results - Last 24 Hours (Table) 09/01/17 Range/Units 07:24 WBC 15.4 H (3.8-10.6) k/uL RBC 3.91 L (4.30-5.90) m/uL Hgb 12.8 L (13.0-17.5) gm/dL MCV 101.6 H (80.0-100.0) fL Neutrophils # 12.1 H (1.3-7.7) k/uL Monocytes # 1.2 H (0-1.0) k/uL Microbiology - Last 24 Hours (Table) 08/30/17 15:24 Gram Stain - Preliminary Other - Other Wound Culture - Preliminary Alpha Hemolytic Streptococcus 08/30/17 06:00 Blood Culture Gram Stain - Preliminary Blood Assessment and Plan (1) Perineal abscess Current Visit: Yes Status: Acute Code(s): L02.215 - CUTANEOUS ABSCESS OF PERINEUM SNOMED Code(s): 58571031 Plan: 51-year-old male with perineal and scrotal abscess - WBCs decreased today - Continue local wound care - Infectious disease consult placed, appreciate recommendations on antibiotics - Continue hygiene maintenance and perineum - Will follow leukocytosis - Discharge planning
--- NOTE | 2017-09-01 21:42 | PN ---
PROGRESS NOTE DATE OF SERVICE: 09/01/2017. REASON FOR FOLLOW UP: Perineal abscess. INTERVAL HISTORY: The patient is afebrile, has been breathing comfortably. Denies significant chest pain or cough. No abdominal pain. No nausea, vomiting or diarrhea. Pain in the perineal area has decreased in intensity. EXAMINATION: Blood pressure 133/84 with a pulse of 59, temperature of 99. He is 95% on room air. General description is a middle-aged male lying in bed in no distress. Respiratory system unlabored breathing. Clear to auscultation anteriorly. Heart S1, S2. Regular rate and rhythm. Abdomen soft, no tenderness. Current area of swelling slightly decreased. No drainage. LABS: Hemoglobin is 12.8 with white count of 15.4, BUN of 16, creatinine is 1.15. The wound culture with hemolytic Streptococcus. DIAGNOSTIC IMPRESSION AND PLAN: Patient with perineal abscess with deep cultures showing Streptococcus however blood cultures did show a gram-negative bacilli. We will keep the patient on Vanco as well as Zosyn at this point. Waiting for the final ID of this gram-negative before adjust antibiotic further. Continue supportive care. MMODL / IJN: [id number] / [place]
[2017-09-02] MEDS: VANCOMYCIN 2,000 MG in SODIUM CHLORIDE 0.9% 500 ML IVPB SCH ×2 (00:31→08:37)
[2017-09-02] MEDS: PIPERACILLIN-TAZOBACTAM 3.375 GM in DEXTROSE/WATER 1 50ML.BAG IVPB SCH ×2 (03:57→12:05)
[2017-09-02] MEDS: HYDROcodone/APAP 5-325MG 1 EACH TAB PO PRN ×2 (05:39→21:59)
[2017-09-02 08:39] LABS: Basophils % (A) 0 %; Eosinophils # (A) 0.2 k/uL (0-0.7); Eosinophils % (A) 2 %; HCT 37.6 % (39.0-53.0); HGB 12.2 gm/dL (13.0-17.5); Lymphocytes # (A) 1.6 k/uL (1.0-4.8); Lymphocytes % (A) 12 %; MCHC 32.6 g/dL (31.0-37.0); MCV 101.4 fL (80.0-100.0); Mean Platelet Volume 7.4; Monocytes # (A) 1.3 k/uL (0-1.0); Monocytes % (A) 10 %; Neutrophils # (A) 9.9 k/uL (1.3-7.7); Neutrophils % (A) 75 %; Platelet Count 305 k/uL (150-450); RBC 3.71 m/uL (4.30-5.90); RDW 12.4 % (11.5-15.5); WBC 13.3 k/uL (3.8-10.6)
[2017-09-02 08:57] LABS: Anion Gap 11 mmol/L; Blood Urea Nitrogen 13 mg/dL (9-20); Calcium 8.8 mg/dL (8.4-10.2); Carbon Dioxide 24 mmol/L (22-30); Chloride 103 mmol/L (98-107); Glucose 90 mg/dL (74-99); Potassium 3.9 mmol/L (3.5-5.1); Sodium 138 mmol/L (137-145)
[2017-09-02] MEDS: PANTOPRAZOLE 40 MG TABLET PO SCH (09:41)
[2017-09-02] MEDS: BISOPROLOL 5 MG TAB PO SCH (09:41)
[2017-09-02] MEDS: ENOXAPARIN 40 MG/0.4 ML SYRINGE SQ SCH (09:41)
[2017-09-02] MEDS: DOCUSATE 100 MG CAP PO SCH ×2 (09:41→21:09)
[2017-09-02] MEDS: MULTIVITAMINS, THERA 1 EACH TAB PO SCH (12:22)
[2017-09-02] MEDS: THIAMINE 100 MG TAB PO SCH (12:22)
[2017-09-02] MEDS ORDERED: SODIUM CHLORIDE 0.9% 1,000 ML IV ONE (12:49)
[2017-09-02] MEDS ORDERED: RX INFO: IV CONTRAST WAS GIVEN 1 EACH MISC MISCELLANE PRN (12:50)
--- NOTE | 2017-09-02 12:54 | P.PN ---
Subjective Progress Note Date: 09/02/17 Patient seen and examined at bedside. He states he is feeling better. His leukocytosis has decreased to 13 today. I did see the patient with the infectious disease team at bedside. He denies feeling feverish, chills, chest pain or shortness of breath. There does seem to be some mild increased induration in the perineum. The patient states it is not painful or pressure- like. Objective - Vital Signs Vital signs: Vital Signs Temp 98.5 F 09/02/17 07:00 Pulse 50 L 09/02/17 10:53 Resp 18 09/02/17 10:53 BP 157/74 09/02/17 07:00 Pulse Ox 97 09/02/17 07:00 Intake & Output 09/01/17 09/02/17 09/02/17 18:59 06:59 18:59 Intake Total 550 735 Balance 550 735 Weight 135.171 kg 135.171 kg Intake: Intake, IV Titration 550 735 Amount IV Fluid Continuation 1, 60 000 ml As IV .K-MED [facility] Rx#:[id number] Piperacillin-Tazobactam 3 50 100 .375 gm In Dextrose/Water 1 50ml.bag @ 12.5 mls/hr IVPB Q8H [facility] Rx#: [id number] Vancomycin 2,000 mg In 500 575 Sodium Chloride 0.9% 500 ml @ 167 mls/hr IVPB Q8H [facility] Rx#:[id number] Other: Voiding Method Toilet Toilet Toilet # Voids 1 1 - Constitutional General appearance: Present: cooperative, no acute distress - Gastrointestinal Gastrointestinal Comment(s): Soft, nontender, nondistended, no rebound, no guarding - Genitourinary Genitourinary Comment(s): Perineum incision site with very mild drainage, serosanguineous Palpable induration, mildly increased from previous day No palpable fluctuance, no erythema - Psychiatric Psychiatric: Present: A&O x's 3 - Labs CBC & Chem 7: 09/02/17 07:29 09/02/17 08:16 Labs: Abnormal Lab Results - Last 24 Hours (Table) 09/02/17 Range/Units 07:29 WBC 13.3 H (3.8-10.6) k/uL RBC 3.71 L (4.30-5.90) m/uL Hgb 12.2 L (13.0-17.5) gm/dL Hct 37.6 L (39.0-53.0) % MCV 101.4 H (80.0-100.0) fL Neutrophils # 9.9 H (1.3-7.7) k/uL Monocytes # 1.3 H (0-1.0) k/uL Microbiology - Last 24 Hours (Table) 08/30/17 06:00 Blood Culture Gram Stain - Final Blood Blood Culture - Final Bacteroides distasonis 08/30/17 15:24 Anaerobic Culture - Preliminary Other - Other 08/30/17 15:24 Gram Stain - Preliminary Other - Other Wound Culture - Preliminary Alpha Hemolytic Streptococcus Assessment and Plan (1) Perineal abscess Current Visit: Yes Status: Acute Code(s): L02.215 - CUTANEOUS ABSCESS OF PERINEUM SNOMED Code(s): 42606544 Plan: 51-year-old male with perineal and scrotal abscess - WBCs decreased today to 13 - Continue local wound care - Discussed case with infectious disease at bedside. There is concern of this mild increased induration. We will obtain a CT of the pelvis to further evaluate. We'll continue antibiotics per infectious disease - Continue hygiene maintenance and perineum - Will follow leukocytosis
[2017-09-02] MEDS: AMPICILLIN-SULBACTAM 3 GM in SODIUM CHLORIDE 0.9% 100 ML IVPB SCH ×3 (13:06→23:39)
[2017-09-02] MEDS: metroNIDAZOLE 500 MG TAB PO SCH ×2 (15:33→21:09)
[2017-09-02] MEDS: ACETAMINOPHEN TAB 325 MG TAB PO PRN (15:34)
--- NOTE | 2017-09-02 17:31 | CT ---
EXAMINATION TYPE: CT pelvis w con DATE OF EXAM: 09/02/2017 COMPARISON: 08/30/2017 HISTORY: Abscess CT DLP: mGycm Automated exposure control for dose reduction was used. CONTRAST: Omnipaque 100 mL. FINDINGS: There is a 7 x 4 cm fluid collection on the left side of the posterior urethra in the perineum. There are some air bubbles associated with the fluid. There is diffuse subcutaneous edema involving the sc rotum. There is no free fluid in the pelvis. There are numerous sigmoid diverticula. There is no sign of div erticulitis. Bladder distends smoothly. Appendix appears normal. There is a 3 cm cyst on the posterio r right kidney. There is no hydronephrosis. Ureters are not dilated. IMPRESSION: THERE IS A COMPLEX FLUID COLLECTION IN THE PERINEUM ON THE LEFT SIDE OF THE POSTERIOR URETHRA THAT AP PEARS SLIGHTLY SMALLER THAN THE LAST CT SCAN OF 08/30/2017 AND CONSISTENT WITH AN ABSCESS. THERE ARE S OFT TISSUE AIR BUBBLES ADJACENT TO THE FLUID AND THIS COULD RELATE TO SURGERY. THERE IS DIFFUSE SUBCUTANEOUS SCROTAL EDEMA THAT IS PROBABLY WORSE THAN LAST EXAM. I SEE NO NEW PATHO LOGIC FLUID COLLECTION.
--- NOTE | 2017-09-02 20:13 | PN ---
PROGRESS NOTE DATE OF SERVICE: 09/02/2017 REASON FOR FOLLOWUP: Perineal abscess with gram-negative bacteremia. INTERVAL HISTORY: The patient did have a low-grade fever last night of 100.4 that is now up to around 100.2. The patient has been feeling better himself. He did mention that the pain to the perineal area has decreased. Still has significant scrotal swelling. Denies any chest pain or shortness of breath or cough and no diarrhea. He is really anxious to go home. EXAMINATION: Blood pressure is 144/87 with a pulse of 57, temperature of 97.1. He is 96% on room air. General description is a middle-aged male lying in bed in no distress. RESPIRATORY SYSTEM: Unlabored breathing. Clear to auscultation anteriorly. HEART: S1, S2. Regular rate and rhythm. ABDOMEN: Soft. No tenderness. Perineal area still had significant swelling of the scrotal area with induration in the perineum with no drainage. LABS: Hemoglobin is 12.8, white count of 13.3. BUN of 13, creatinine 1.17. Blood culture with an Bacteroides. Local wound culture alpha-hemolytic Streptococcus. DIAGNOSTIC IMPRESSION AND PLAN: Patient with deep perineal abscess, status post drainage. However, the patient still has a low-grade fever. With Bacteroides bacteremia, that does usually signify a possible gut source. However, there was a detailed discussion with the surgeon on the case. Did not mention evidence of diverticulitis or any communication of this abscess to the bowel. In view of the low-grade fever and significant induration, a repeat CT has been ordered which is now showing a 7.4-cm fluid collection that needs to be drained in order to heal up this infection. The patient's antibiotics adjusted to Unasyn and Flagyl and advised to stay in the hospital while this abscess is completely resolved. Continue supportive care. MMODL / IJN: [id number] / MTDIsh
--- NOTE | 2017-09-03 00:05 | P.PN ---
Subjective Progress Note Date: 08/31/17 Principal diagnosis: Perineal abscess Patient is a 51-year-old male with a known history of hypertension, hyperlipidemia, GERD and morbid obesity came to ER with complaints of pain in the perianal area for the past 1 week. Patient was seen in the clinic and took one day of antibiotics without much improvement and presented back to ER. Patient had increased swelling and pain during last 24 hours. Patient does have a history of perineal abscess incision and drainage about 10 years ago. Patient denied any fever or chills. Denied any nausea vomiting or abdominal pain. No chest pain or shortness of breath. CT pelvis showed a showed significant abscess in the perineum extending into the left scrotal area. Patient underwent I&D by surgery today. Patient has been febrile with T-max 103.2 while in the hospital On 08/31/2017 Patient has been afebrile today. WBC count 23.9. Patient says that he is feeling better at this time. Otherwise denied any chest pain or shortness of breath. No nausea vomiting or abdominal pain. Dressing change by general surgery. All other review of systems negative except the above Current medications reviewed Objective - Vital Signs Vital signs: Vital Signs Temp 99.3 F 08/31/17 20:00 Pulse 83 08/31/17 20:00 Resp 20 08/31/17 20:00 BP 161/93 08/31/17 20:00 Pulse Ox 95 08/31/17 20:00 Intake & Output 08/31/17 08/31/17 09/01/17 06:59 18:59 06:59 Intake Total 3290 Balance 3290 Intake: Intake, IV Titration 2100 Amount Lactated Ringers 1,000 ml 1500 @ 125 mls/hr IV .Q8H ONE Rx#:[id number] Piperacillin-Tazobactam 3 100 .375 gm In Dextrose/Water 1 50ml.bag @ 12.5 mls/hr IVPB Q8H [facility] Rx#: [id number] Vancomycin 2,000 mg In 500 Sodium Chloride 0.9% 500 ml @ 167 mls/hr IVPB [facility] Rx#:[id number] Oral 1190 Other: # Voids 5 4 1 - Exam PHYSICAL EXAMINATION: Patient is lying in the bed comfortably, no acute distress, awake alert and oriented.. HEENT: Normocephalic. Neck is supple. Pupils reactive. Nostrils clear. Oral cavity is moist. Ears reveal no drainage. Neck reveals no JVD, carotid bruits, or thyromegaly. CHEST EXAMINATION: Trachea is central. Symmetrical expansion. Lung thompson clear to auscultation and percussion. CARDIAC: Normal S1, S2 with no gallops. No murmurs ABDOMEN: Soft. Bowel sounds normal. No organomegaly. No abdominal bruits. perineal wound is dressed and is having serosanguineous discharge Extremities: reveal no edema. No clubbing or cyanosis Neurologically awake, alert, oriented x3 with well-coordinated movements. No focal deficits noted Skin: No rash or skin lesions. Psychiatric: Coperative. Nonsuicidal Musculoskeletal: No joint swelling or deformity. Normal range of motion. - Labs CBC & Chem 7: 09/02/17 07:29 09/02/17 08:16 Labs: Abnormal Lab Results - Last 24 Hours (Table) 08/31/17 08/31/17 08/31/17 Range/Units 07:15 07:39 07:39 WBC 23.9 H (3.8-10.6) k/uL RBC 3.93 L (4.30-5.90) m/uL MCV 103.5 H (80.0-100.0) fL Neutrophils # 20.6 H (1.3-7.7) k/uL Monocytes # 1.6 H (0-1.0) k/uL Sodium 136 L (137-145) mmol/L Glucose 121 H (74-99) mg/dL POC Glucose (mg/dL) 131 H (75-99) mg/dL AST 15 L (17-59) U/L Total Protein 5.7 L (6.3-8.2) g/dL Albumin 2.9 L (3.5-5.0) g/dL Microbiology - Last 24 Hours (Table) 08/30/17 06:00 Blood Culture Gram Stain - Preliminary Blood 08/30/17 06:08 Blood Culture - Final Blood 08/30/17 15:24 Gram Stain - Preliminary Other - Other Wound Culture - Preliminary 08/30/17 15:24 Anaerobic Culture - Preliminary Other - Other Assessment and Plan Assessment: Sepsis secondary to perineal abscess Extensive perineal abscess status post I&D on 08/30/2017 Previous history of perineal abscess Hypertension. Blood pressure is not elevated. Will hold antihypertensives at this time Hyperlipidemia GERD Morbid obesity BMI 38.3 Cigar smoking and alcohol abuse History of paroxysmal atrial fibrillation. Rate controlled with beta blockers. Patient will need aspirin upon discharge DVT prophylaxis Plan: Patient will be continued on broad-spectrum antibiotics in the form of vancomycin and Zosyn. Follow up blood cultures and wound cultures. Continue the IV hydration. Follow up closely. Further recommendations based on the clinical course.
--- NOTE | 2017-09-03 00:07 | P.PN ---
Subjective Progress Note Date: 09/01/17 Principal diagnosis: Perineal abscess Patient is a 51-year-old male with a known history of hypertension, hyperlipidemia, GERD and morbid obesity came to ER with complaints of pain in the perianal area for the past 1 week. Patient was seen in the clinic and took one day of antibiotics without much improvement and presented back to ER. Patient had increased swelling and pain during last 24 hours. Patient does have a history of perineal abscess incision and drainage about 10 years ago. Patient denied any fever or chills. Denied any nausea vomiting or abdominal pain. No chest pain or shortness of breath. CT pelvis showed a showed significant abscess in the perineum extending into the left scrotal area. Patient underwent I&D by surgery today. Patient has been febrile with T-max 103.2 while in the hospital On 08/31/2017 Patient has been afebrile today. WBC count 23.9. Patient says that he is feeling better at this time. Otherwise denied any chest pain or shortness of breath. No nausea vomiting or abdominal pain. Dressing change by general surgery. 09/01/2017 Patient continues to be afebrile. WBC 15.4. Patient is feeling better but still having significant drainage from the I&D site. ID is following. Continue with antibiotics as per ID recommendations. Otherwise no chest pain no shortness of breath no other acute overnight issues All other review of systems negative except the above Current medications reviewed Objective - Vital Signs Vital signs: Vital Signs Temp 99.6 F 09/01/17 07:00 Pulse 61 09/01/17 10:01 Resp 19 09/01/17 10:01 BP 153/75 09/01/17 07:00 Pulse Ox 93 L 09/01/17 07:00 Intake & Output 08/31/17 09/01/17 09/01/17 18:59 06:59 18:59 Intake Total 550 Balance 550 Weight 135.171 kg Intake: Intake, IV Titration 550 Amount Piperacillin-Tazobactam 3 50 .375 gm In Dextrose/Water 1 50ml.bag @ 12.5 mls/hr IVPB Q8H [facility] Rx#: [id number] Vancomycin 2,000 mg In 500 Sodium Chloride 0.9% 500 ml @ 167 mls/hr IVPB Q8H [facility] Rx#:[id number] Other: Voiding Method Toilet # Voids 4 1 1 - Exam PHYSICAL EXAMINATION: Patient is lying in the bed comfortably, no acute distress, awake alert and oriented.. HEENT: Normocephalic. Neck is supple. Pupils reactive. Nostrils clear. Oral cavity is moist. Ears reveal no drainage. Neck reveals no JVD, carotid bruits, or thyromegaly. CHEST EXAMINATION: Trachea is central. Symmetrical expansion. Lung thompson clear to auscultation and percussion. CARDIAC: Normal S1, S2 with no gallops. No murmurs ABDOMEN: Soft. Bowel sounds normal. No organomegaly. No abdominal bruits. perineal wound is dressed and is having serosanguineous discharge Extremities: reveal no edema. No clubbing or cyanosis Neurologically awake, alert, oriented x3 with well-coordinated movements. No focal deficits noted Skin: No rash or skin lesions. Psychiatric: Coperative. Nonsuicidal Musculoskeletal: No joint swelling or deformity. Normal range of motion. - Labs CBC & Chem 7: 09/02/17 07:29 09/02/17 08:16 Labs: Abnormal Lab Results - Last 24 Hours (Table) 09/01/17 Range/Units 07:24 WBC 15.4 H (3.8-10.6) k/uL RBC 3.91 L (4.30-5.90) m/uL Hgb 12.8 L (13.0-17.5) gm/dL MCV 101.6 H (80.0-100.0) fL Neutrophils # 12.1 H (1.3-7.7) k/uL Monocytes # 1.2 H (0-1.0) k/uL Microbiology - Last 24 Hours (Table) 08/30/17 06:00 Blood Culture Gram Stain - Preliminary Blood 08/30/17 06:08 Blood Culture - Final Blood Assessment and Plan Assessment: Sepsis secondary to perineal abscess Extensive perineal abscess status post I&D on 08/30/2017 Previous history of perineal abscess Hypertension. Blood pressure is not elevated. Will hold antihypertensives at this time Hyperlipidemia GERD Morbid obesity BMI 38.3 Cigar smoking and alcohol abuse History of paroxysmal atrial fibrillation. Rate controlled with beta blockers. Patient will need aspirin upon discharge DVT prophylaxis Plan: Patient will be continued on broad-spectrum antibiotics in the form of vancomycin and Zosyn. Follow up blood cultures and wound cultures. Continue the IV hydration. Follow up closely. Further recommendations based on the clinical course.
--- NOTE | 2017-09-03 00:11 | P.PN ---
Subjective Progress Note Date: 09/02/17 Principal diagnosis: Perineal abscess Patient is a 51-year-old male with a known history of hypertension, hyperlipidemia, GERD and morbid obesity came to ER with complaints of pain in the perianal area for the past 1 week. Patient was seen in the clinic and took one day of antibiotics without much improvement and presented back to ER. Patient had increased swelling and pain during last 24 hours. Patient does have a history of perineal abscess incision and drainage about 10 years ago. Patient denied any fever or chills. Denied any nausea vomiting or abdominal pain. No chest pain or shortness of breath. CT pelvis showed a showed significant abscess in the perineum extending into the left scrotal area. Patient underwent I&D by surgery today. Patient has been febrile with T-max 103.2 while in the hospital On 08/31/2017 Patient has been afebrile today. WBC count 23.9. Patient says that he is feeling better at this time. Otherwise denied any chest pain or shortness of breath. No nausea vomiting or abdominal pain. Dressing change by general surgery. 09/01/2017 Patient continues to be afebrile. WBC 15.4. Patient is feeling better but still having significant drainage from the I&D site. ID is following. Continue with antibiotics as per ID recommendations. Otherwise no chest pain no shortness of breath no other acute overnight issues. 09/02/2017 Patient became febrile last and with T-max of 100.4. Otherwise leukocytosis continues to improve. Blood cultures showed bacteroids and wound cultures showed Streptococcus david hemolytic. CT abdomen and pelvis was ordered for further evaluation. ID is on board. Antibiotics have been changed to Unasyn at this time. Otherwise patient is symptomatically improving. All other review of systems negative except the above Current medications reviewed Objective - Vital Signs Vital signs: Vital Signs Temp 97.1 F L 09/02/17 18:32 Pulse 67 09/02/17 18:32 Resp 18 09/02/17 18:32 BP 144/87 09/02/17 18:32 Pulse Ox 96 09/02/17 18:32 Intake & Output 09/02/17 09/02/17 09/03/17 06:59 18:59 06:59 Intake Total 735 1549 Balance 735 1549 Weight 135.171 kg Intake: Intake, IV Titration 735 1549 Amount IV Fluid Continuation 1, 60 000 ml As IV .[facility] Rx#:[id number] Piperacillin-Tazobactam 3 100 50 .375 gm In Dextrose/Water 1 50ml.bag @ 12.5 mls/hr IVPB Q8H [facility] Rx#: [id number] Sodium Chloride 0.9% 1, 999 000 ml @ 999 mls/hr IV . Q1H1M [facility] Rx#:[id number] Vancomycin 2,000 mg In 575 500 Sodium Chloride 0.9% 500 ml @ 167 mls/hr IVPB Q8H [facility] Rx#:[id number] Other: Voiding Method Toilet Toilet # Voids 1 - Exam PHYSICAL EXAMINATION: Patient is lying in the bed comfortably, no acute distress, awake alert and oriented.. HEENT: Normocephalic. Neck is supple. Pupils reactive. Nostrils clear. Oral cavity is moist. Ears reveal no drainage. Neck reveals no JVD, carotid bruits, or thyromegaly. CHEST EXAMINATION: Trachea is central. Symmetrical expansion. Lung thompson clear to auscultation and percussion. CARDIAC: Normal S1, S2 with no gallops. No murmurs ABDOMEN: Soft. Bowel sounds normal. No organomegaly. No abdominal bruits. perineal wound is dressed and is having serosanguineous discharge Extremities: reveal no edema. No clubbing or cyanosis Neurologically awake, alert, oriented x3 with well-coordinated movements. No focal deficits noted Skin: No rash or skin lesions. Psychiatric: Coperative. Nonsuicidal Musculoskeletal: No joint swelling or deformity. Normal range of motion. - Labs CBC & Chem 7: 09/02/17 07:29 09/02/17 08:16 Labs: Abnormal Lab Results - Last 24 Hours (Table) 09/02/17 Range/Units 07:29 WBC 13.3 H (3.8-10.6) k/uL RBC 3.71 L (4.30-5.90) m/uL Hgb 12.2 L (13.0-17.5) gm/dL Hct 37.6 L (39.0-53.0) % MCV 101.4 H (80.0-100.0) fL Neutrophils # 9.9 H (1.3-7.7) k/uL Monocytes # 1.3 H (0-1.0) k/uL Microbiology - Last 24 Hours (Table) 08/30/17 06:00 Blood Culture Gram Stain - Final Blood Blood Culture - Final Bacteroides distasonis 08/30/17 15:24 Anaerobic Culture - Preliminary Other - Other 08/30/17 15:24 Gram Stain - Preliminary Other - Other Wound Culture - Preliminary Alpha Hemolytic Streptococcus Assessment and Plan Assessment: Sepsis secondary to perineal abscess Extensive perineal abscess status post I&D on 08/30/2017 Previous history of perineal abscess Hypertension. Blood pressure is not elevated. Will hold antihypertensives at this time Hyperlipidemia GERD Morbid obesity BMI 38.3 Cigar smoking and alcohol abuse History of paroxysmal atrial fibrillation. Rate controlled with beta blockers. Patient will need aspirin upon discharge DVT prophylaxis Plan: Antibiotics changed to Unasyn as per ID. Wound culture showed all for hemolytic streptococcus. Repeat blood cultures. Dressing changes.. Continue the IV hydration. Follow up closely. Further recommendations based on the clinical course. Time with Patient: Greater than 30
[2017-09-03] MEDS: AMPICILLIN-SULBACTAM 3 GM in SODIUM CHLORIDE 0.9% 100 ML IVPB SCH ×4 (05:53→17:49)
[2017-09-03] MEDS ORDERED: VANCOMYCIN TROUGH DUE 1 EACH MISC MISCELLANE ONE (06:00)
[2017-09-03 08:35] LABS: Basophils % (A) 0 %; Eosinophils # (A) 0.3 k/uL (0-0.7); Eosinophils % (A) 2 %; HCT 40.7 % (39.0-53.0); HGB 12.3 gm/dL (13.0-17.5); Lymphocytes # (A) 1.8 k/uL (1.0-4.8); Lymphocytes % (A) 11 %; MCH 31.4 pg (25.0-35.0); MCHC 30.3 g/dL (31.0-37.0); MCV 103.9 fL (80.0-100.0); Macrocytosis Slight; Mean Platelet Volume 7.6; Monocytes # (A) 1.5 k/uL (0-1.0); Monocytes % (A) 9 %; Neutrophils # (A) 13.2 k/uL (1.3-7.7); Neutrophils % (A) 77 %; Platelet Count 352 k/uL (150-450); RBC 3.92 m/uL (4.30-5.90); RDW 12.3 % (11.5-15.5); WBC 17.1 k/uL (3.8-10.6)
[2017-09-03] MEDS: HYDROcodone/APAP 5-325MG 1 EACH TAB PO PRN (08:39)
[2017-09-03] MEDS: ENOXAPARIN 40 MG/0.4 ML SYRINGE SQ SCH (08:40)
[2017-09-03] MEDS: DOCUSATE 100 MG CAP PO SCH ×2 (08:40→21:40)
[2017-09-03] MEDS: PANTOPRAZOLE 40 MG TABLET PO SCH (08:40)
[2017-09-03] MEDS: BISOPROLOL 5 MG TAB PO SCH (08:40)
[2017-09-03] MEDS: metroNIDAZOLE 500 MG TAB PO SCH ×3 (08:40→21:38)
[2017-09-03 09:03] LABS: Anion Gap 15 mmol/L; Blood Urea Nitrogen 11 mg/dL (9-20); Calcium 8.9 mg/dL (8.4-10.2); Carbon Dioxide 24 mmol/L (22-30); Chloride 101 mmol/L (98-107); Glucose 89 mg/dL (74-99); Sodium 140 mmol/L (137-145)
--- NOTE | 2017-09-03 09:08 | P.PN ---
Subjective Progress Note Date: 09/03/17 Patient seen and examined at bedside. States he is feeling well. CT of the pelvis was performed yesterday that didn't show a continued abscess of 7.4 cm and the peritoneum on the left side of the urethra. The patient denies any additional pain or pressure in this area. He denies feeling feverish. Objective - Vital Signs Vital signs: Vital Signs Temp 99.3 F 09/03/17 07:00 Pulse 50 L 09/03/17 07:00 Resp 20 09/03/17 07:00 BP 172/84 09/03/17 07:00 Pulse Ox 93 L 09/03/17 07:00 Intake & Output 09/02/17 09/03/17 09/03/17 18:59 06:59 18:59 Intake Total 1549 340 Balance 1549 340 Intake: Intake, IV Titration 1549 100 Amount Ampicillin-Sulbactam 3 gm 100 In Sodium Chloride 0.9% 100 ml @ 100 mls/hr IVPB Q6HR [facility] Rx#:[id number] Piperacillin-Tazobactam 3 50 .375 gm In Dextrose/Water 1 50ml.bag @ 12.5 mls/hr IVPB Q8H [facility] Rx#: [id number] Sodium Chloride 0.9% 1, 999 000 ml @ 999 mls/hr IV . Q1H1M [facility] Rx#:[id number] Vancomycin 2,000 mg In 500 Sodium Chloride 0.9% 500 ml @ 167 mls/hr IVPB Q8H [facility] Rx#:[id number] Oral 240 Other: Voiding Method Toilet Toilet # Voids 1 - Constitutional General appearance: Present: cooperative - Respiratory Details: No difficulty with respiration - Gastrointestinal Gastrointestinal Comment(s): Soft, nontender, nondistended, no rebound, no guarding - Genitourinary Genitourinary Comment(s): Induration noted in the perineum, mild drainage from the incision site, scrotal swelling, no obvious erythema - Labs CBC & Chem 7: 09/03/17 07:13 09/03/17 07:13 Labs: Abnormal Lab Results - Last 24 Hours (Table) 09/03/17 Range/Units 07:13 WBC 17.1 H (3.8-10.6) k/uL RBC 3.92 L (4.30-5.90) m/uL Hgb 12.3 L (13.0-17.5) gm/dL MCV 103.9 H (80.0-100.0) fL MCHC 30.3 L (31.0-37.0) g/dL Neutrophils # 13.2 H (1.3-7.7) k/uL Monocytes # 1.5 H (0-1.0) k/uL Microbiology - Last 24 Hours (Table) 08/30/17 15:24 Gram Stain - Final Other - Other Wound Culture - Final Alpha Hemolytic Streptococcus 08/30/17 06:00 Blood Culture Gram Stain - Final Blood Blood Culture - Final Bacteroides distasonis Assessment and Plan (1) Perineal abscess Current Visit: Yes Status: Acute Code(s): L02.215 - CUTANEOUS ABSCESS OF PERINEUM SNOMED Code(s): 69191488 Plan: 51-year-old male with perineal and scrotal abscess - WBCs increased today to 17 - CT of pelvis did result in a 7.4 cm abscess in the perineum on the left side of the urethra. After this result was noted, I did discuss the case with the urologist vision teacher. Plan is for evaluation by urology for possible additional drainage. I did discuss this with the patient and he is agreeable to this plan. He is anxious to go home, but understands the seriousness of the location of this abscess. - Continue antibiotics per infectious disease - Continue hygiene maintenance and perineum - Will follow leukocytosis
--- NOTE | 2017-09-03 11:47 | P.PN ---
Subjective Progress Note Date: 09/03/17 Principal diagnosis: Scrotal abscess The patient's scrotal swelling has increased, and computed tomography scan shows a 4 x 7 cm left posterior scrotal fluid collection suspicious for residual abscess. He denies voiding difficulty. Objective - Vital Signs Vital signs: Vital Signs Temp 99.3 F 09/03/17 07:00 Pulse 50 L 09/03/17 07:00 Resp 20 09/03/17 07:00 BP 172/84 09/03/17 07:00 Pulse Ox 93 L 09/03/17 07:00 Intake & Output 09/02/17 09/03/17 09/03/17 18:59 06:59 18:59 Intake Total 1549 340 Balance 1549 340 Intake: Intake, IV Titration 1549 100 Amount Ampicillin-Sulbactam 3 gm 100 In Sodium Chloride 0.9% 100 ml @ 100 mls/hr IVPB Q6HR [facility] Rx#:[id number] Piperacillin-Tazobactam 3 50 .375 gm In Dextrose/Water 1 50ml.bag @ 12.5 mls/hr IVPB Q8H [facility] Rx#: [id number] Sodium Chloride 0.9% 1, 999 000 ml @ 999 mls/hr IV . Q1H1M [facility] Rx#:[id number] Vancomycin 2,000 mg In 500 Sodium Chloride 0.9% 500 ml @ 167 mls/hr IVPB Q8H [facility] Rx#:[id number] Oral 240 Other: Voiding Method Toilet Toilet # Voids 1 - Constitutional General appearance: Present: average body habitus, cooperative, no acute distress - Genitourinary Genitourinary Comment(s): Significant scrotal edema is noted. A left perineal incision is present. There is minimal drainage. The left posterior scrotum is indurated. There are no areas of fluctuance. - Psychiatric Psychiatric: Present: A&O x's 3, appropriate affect - Labs CBC & Chem 7: 09/03/17 07:13 09/03/17 07:13 Labs: Abnormal Lab Results - Last 24 Hours (Table) 09/03/17 Range/Units 07:13 WBC 17.1 H (3.8-10.6) k/uL RBC 3.92 L (4.30-5.90) m/uL Hgb 12.3 L (13.0-17.5) gm/dL MCV 103.9 H (80.0-100.0) fL MCHC 30.3 L (31.0-37.0) g/dL Neutrophils # 13.2 H (1.3-7.7) k/uL Monocytes # 1.5 H (0-1.0) k/uL Microbiology - Last 24 Hours (Table) 08/30/17 15:24 Gram Stain - Final Other - Other Wound Culture - Final Alpha Hemolytic Streptococcus Assessment and Plan (1) Perineal abscess Current Visit: Yes Status: Acute Priority: High Code(s): L02.215 - CUTANEOUS ABSCESS OF PERINEUM SNOMED Code(s): 44252840 Plan: Based on physical examination and computed tomography scan, there appears to be residual abscess within the left posterior scrotum. In view of this, he will undergo incision and drainage of this tomorrow morning. The rationale for this procedure was discussed in detail with the patient, and he understands potential risks to include anesthesia, bleeding, infection, and residual infection which may require additional drainage procedures.
[2017-09-03] MEDS: THIAMINE 100 MG TAB PO SCH (12:47)
[2017-09-03] MEDS: MULTIVITAMINS, THERA 1 EACH TAB PO SCH (12:47)
--- NOTE | 2017-09-03 17:41 | PN ---
PROGRESS NOTE DATE OF SERVICE: 09/03/2017. REASON FOR FOLLOWUP: Perineum and a scrotal abscess. INTERVAL HISTORY: The patient is afebrile, has been breathing comfortably. Denies having any chest pain or shortness of breath or cough. No abdominal pain. The pain to the perineal area has slightly decreased. No drainage. EXAMINATION: Blood pressure is 159/80 with a pulse of 57, temperature 99.3. He is 95% on room air. General description is a middle-aged male lying in bed in no distress. RESPIRATORY SYSTEM: Unlabored breathing. Clear to auscultation anteriorly. HEART: S1, S2. Regular rate and rhythm. ABDOMEN: Soft, no tenderness. Scrotal area swelling persists. No drainage. LABS: Hemoglobin 12.8, white count 17.9 with BUN of 11, creatinine 1.20. DIAGNOSTIC IMPRESSION AND PLAN: Patient with perineal and scrotal abscess status post drainage with repeat CT scans shows deep perineal abscess for which the patient is scheduled to have drainage tomorrow. Recommend obtaining deep cultures both aerobic and anaerobic. Keep the patient on Unasyn and Flagyl at this point adjusting it further based on the repeat culture report. Continue supportive care. MMODL / IJN: [id number] /
[2017-09-03] MEDS: amLODIPine 10 MG TAB PO SCH (17:49)
[2017-09-03] MEDS: ZOLPIDEM 5 MG TAB PO PRN (21:41)
[2017-09-04] MEDS: AMPICILLIN-SULBACTAM 3 GM in SODIUM CHLORIDE 0.9% 100 ML IVPB SCH ×5 (00:24→23:30)
[2017-09-04] MEDS ORDERED: PROPOFOL 10 MG/ML 20 ML VIAL IV ONE (07:46)
[2017-09-04] MEDS ORDERED: LIDOCAINE 1% INJ 10MG/ML (20 ML MDV) ONE (07:46)
[2017-09-04] MEDS ORDERED: SODIUM CHLORIDE 0.9% 1,000 ML IV ONE (07:46)
[2017-09-04] MEDS ORDERED: fentaNYL (PF) 50 MCG/ML 2 ML AMP ONE (07:46)
[2017-09-04] MEDS ORDERED: MIDAZOLAM 2 MG/2 ML VIAL ONE (07:46)
--- NOTE | 2017-09-04 08:49 | P.OP ---
Date of Procedure: 09/04/17 Preoperative Diagnosis: Left Scrotal Abscess Postoperative Diagnosis: Same Procedure(s) Performed: Incision and Drainage of Left Scrotal Abscess Anesthesia: ELIJAH Surgeon: Jack Nobles Estimated Blood Loss (ml): 20 IV fluids (ml): 300 Pathology: none sent Condition: stable Disposition: PACU Indications for Procedure: The patient is a 51-year-old male who underwent incision and drainage of a left perineal abscess on 08/30/2017. He has been treated with IV antibiotics. On September 02, his condition was noted to have worsened. A computed tomography scan was obtained, revealing a deep left scrotal fluid collection suspicious for abscess. He now comes for incision and drainage. Operative Findings: Deep left scrotal abscess Description of Procedure: The patient was taken to the operating room and placed in the dorsolithotomy position, with his legs supported in Live stirrups. The external genitalia was prepped and draped sterilely. An area of induration was noted along the left posterolateral scrotum. There is no fluctuance. A needle was passed into the area of induration, but no pus was aspirated. The perineal incision was digitally probed. It did not connect with the area of induration. A hemostat was advanced through the perineal incision and into the area of induration, resulting in purulent drainage. Cultures were sent. The hemostat was then advanced such that the tip of the hemostat approach the scrotal wall, and a counterincision was made at that point. The abscess cavity was drained and digitally probed. It extended toward the inguinal region. An additional counterincision was made at the upper extent of the abscess cavity, in the region of the external inguinal ring. A Steele drain was passed from the upper to the middle incision, and another drain was passed from the middle incision to the lower incision. The drains were then sutured into place using 2 -0 nylon suture. The abscess cavity was copiously irrigated. As this was completed, the return was clear. Hemostasis was excellent. The abscess cavity was packed with iodoform gauze. All sponge and needle counts were correct. The wounds were covered with sterile gauze. The patient tolerated the procedure well was taken to the recovery room in stable condition.
[2017-09-04] MEDS: MEPERIDINE 50 MG/ML SYRINGE IVP ONE ×2 (08:50→08:57)
[2017-09-04] MEDS ORDERED: KETOROLAC 30 MG/ML 1 ML VIAL IVP ONE (08:51)
[2017-09-04] MEDS: PANTOPRAZOLE 40 MG TABLET PO SCH (09:56)
[2017-09-04] MEDS: BISOPROLOL 5 MG TAB PO SCH (09:57)
[2017-09-04] MEDS: ENOXAPARIN 40 MG/0.4 ML SYRINGE SQ SCH (10:00)
[2017-09-04] MEDS: metroNIDAZOLE 500 MG TAB PO SCH ×3 (10:01→20:32)
[2017-09-04] MEDS: DOCUSATE 100 MG CAP PO SCH ×2 (10:01→20:32)
[2017-09-04] MEDS: HYDROcodone/APAP 5-325MG 1 EACH TAB PO PRN ×2 (11:32→23:30)
[2017-09-04] MEDS: amLODIPine 10 MG TAB PO SCH (13:55)
[2017-09-04] MEDS: THIAMINE 100 MG TAB PO SCH (13:55)
[2017-09-04] MEDS: MULTIVITAMINS, THERA 1 EACH TAB PO SCH (13:55)
--- NOTE | 2017-09-04 22:53 | P.PN ---
Subjective Progress Note Date: 09/03/17 Principal diagnosis: Perineal abscess Patient is a 51-year-old male with a known history of hypertension, hyperlipidemia, GERD and morbid obesity came to ER with complaints of pain in the perianal area for the past 1 week. Patient was seen in the clinic and took one day of antibiotics without much improvement and presented back to ER. Patient had increased swelling and pain during last 24 hours. Patient does have a history of perineal abscess incision and drainage about 10 years ago. Patient denied any fever or chills. Denied any nausea vomiting or abdominal pain. No chest pain or shortness of breath. CT pelvis showed a showed significant abscess in the perineum extending into the left scrotal area. Patient underwent I&D by surgery today. Patient has been febrile with T-max 103.2 while in the hospital On 08/31/2017 Patient has been afebrile today. WBC count 23.9. Patient says that he is feeling better at this time. Otherwise denied any chest pain or shortness of breath. No nausea vomiting or abdominal pain. Dressing change by general surgery. 09/01/2017 Patient continues to be afebrile. WBC 15.4. Patient is feeling better but still having significant drainage from the I&D site. ID is following. Continue with antibiotics as per ID recommendations. Otherwise no chest pain no shortness of breath no other acute overnight issues. 09/02/2017 Patient became febrile last and with T-max of 100.4. Otherwise leukocytosis continues to improve. Blood cultures showed bacteroids and wound cultures showed Streptococcus david hemolytic. CT abdomen and pelvis was ordered for further evaluation. ID is on board. Antibiotics have been changed to Unasyn at this time. Otherwise patient is symptomatically improving. 09/03/2017 CT pelvis showed worsening subcutaneous scrotal edema and fluid collection posterior to the urethra. Urology has been consulted and surgical procedure is being planned for tomorrow. Otherwise continue the antibiotics. No fever no chills. All other review of systems negative except the above Current medications reviewed Objective - Vital Signs Vital signs: Vital Signs Temp 99.3 F 09/03/17 15:00 Pulse 57 L 09/03/17 16:00 Resp 20 09/03/17 16:00 BP 169/80 09/03/17 15:00 Pulse Ox 95 09/03/17 15:00 Intake & Output 09/03/17 09/03/1709/04/18 06:59 18:59 06:59 Intake Total 340 1300 Balance 340 1300 Intake: Intake, IV Titration 100 100 Amount Ampicillin-Sulbactam 3 gm 100 100 In Sodium Chloride 0.9% 100 ml @ 100 mls/hr IVPB Q6HR [facility] Rx#:[id number] Oral 240 1200 Other: Voiding Method Toilet Toilet # Voids 1 3 - Exam PHYSICAL EXAMINATION: Patient is lying in the bed comfortably, no acute distress, awake alert and oriented.. HEENT: Normocephalic. Neck is supple. Pupils reactive. Nostrils clear. Oral cavity is moist. Ears reveal no drainage. Neck reveals no JVD, carotid bruits, or thyromegaly. CHEST EXAMINATION: Trachea is central. Symmetrical expansion. Lung thompson clear to auscultation and percussion. CARDIAC: Normal S1, S2 with no gallops. No murmurs ABDOMEN: Soft. Bowel sounds normal. No organomegaly. No abdominal bruits. perineal wound is dressed and is having serosanguineous discharge Extremities: reveal no edema. No clubbing or cyanosis Neurologically awake, alert, oriented x3 with well-coordinated movements. No focal deficits noted Skin: No rash or skin lesions. Psychiatric: Coperative. Nonsuicidal Musculoskeletal: No joint swelling or deformity. Normal range of motion. - Labs CBC & Chem 7: 09/03/17 07:13 09/03/17 07:13 Labs: Abnormal Lab Results - Last 24 Hours (Table) 09/03/17 Range/Units 07:13 WBC 17.1 H (3.8-10.6) k/uL RBC 3.92 L (4.30-5.90) m/uL Hgb 12.3 L (13.0-17.5) gm/dL MCV 103.9 H (80.0-100.0) fL MCHC 30.3 L (31.0-37.0) g/dL Neutrophils # 13.2 H (1.3-7.7) k/uL Monocytes # 1.5 H (0-1.0) k/uL Microbiology - Last 24 Hours (Table) 09/02/17 18:57 Blood Culture - Preliminary Blood No Growth after 24 hours 08/30/17 15:24 Anaerobic Culture - Final Other - Other 08/30/17 15:24 Gram Stain - Final Other - Other Wound Culture - Final Alpha Hemolytic Streptococcus Assessment and Plan Assessment: Sepsis secondary to perineal abscess Extensive perineal abscess status post I&D on 08/30/2017 Fluid collection posterior to the urethra. Urology consulted. Previous history of perineal abscess Hypertension. Blood pressure is not elevated. Will hold antihypertensives at this time Hyperlipidemia GERD Morbid obesity BMI 38.3 Cigar smoking and alcohol abuse History of paroxysmal atrial fibrillation. Rate controlled with beta blockers. Patient will need aspirin upon discharge DVT prophylaxis Plan: Antibiotics changed to Unasyn as per ID. Wound culture showed all for hemolytic streptococcus. Repeat blood cultures. Dressing changes.. Continue the IV hydration. Follow up closely. Further recommendations based on the clinical course.
--- NOTE | 2017-09-04 22:55 | P.PN ---
Subjective Progress Note Date: 09/04/17 Principal diagnosis: Perineal abscess Patient is a 51-year-old male with a known history of hypertension, hyperlipidemia, GERD and morbid obesity came to ER with complaints of pain in the perianal area for the past 1 week. Patient was seen in the clinic and took one day of antibiotics without much improvement and presented back to ER. Patient had increased swelling and pain during last 24 hours. Patient does have a history of perineal abscess incision and drainage about 10 years ago. Patient denied any fever or chills. Denied any nausea vomiting or abdominal pain. No chest pain or shortness of breath. CT pelvis showed a showed significant abscess in the perineum extending into the left scrotal area. Patient underwent I&D by surgery today. Patient has been febrile with T-max 103.2 while in the hospital On 08/31/2017 Patient has been afebrile today. WBC count 23.9. Patient says that he is feeling better at this time. Otherwise denied any chest pain or shortness of breath. No nausea vomiting or abdominal pain. Dressing change by general surgery. 09/01/2017 Patient continues to be afebrile. WBC 15.4. Patient is feeling better but still having significant drainage from the I&D site. ID is following. Continue with antibiotics as per ID recommendations. Otherwise no chest pain no shortness of breath no other acute overnight issues. 09/02/2017 Patient became febrile last and with T-max of 100.4. Otherwise leukocytosis continues to improve. Blood cultures showed bacteroids and wound cultures showed Streptococcus david hemolytic. CT abdomen and pelvis was ordered for further evaluation. ID is on board. Antibiotics have been changed to Unasyn at this time. Otherwise patient is symptomatically improving. 09/03/2017 CT pelvis showed worsening subcutaneous scrotal edema and fluid collection posterior to the urethra. Urology has been consulted and surgical procedure is being planned for tomorrow. Otherwise continue the antibiotics. No fever no chills. 09/04/2017 Patient denied any new complaints today. No fever no chills. Patient underwent Incision and Drainage of Left Scrotal Abscess on 09/04/2017. Follow up on the fluid culture reports. Continued on IV antibiotics. No chest pain no shortness of breath. Active Medications Generic Name Dose Route Start Last Admin Trade Name Freq PRN Reason Stop Dose Admin Acetaminophen 650 mg 08/30/17 17:14 09/02/17 15:34 Tylenol Tab PO 650 mg Q4HR PRN Administration Fever and/ or Pain Hydrocodone Bitart/Acetaminophen 1 each 08/30/17 19:27 09/04/17 11:32 [place] 5-325 PO 1 each Q4HR PRN Administration Mild Pain Albuterol Sulfate 2.5 mg 08/30/17 17:21 Ventolin Nebulized INHALATION RT-Q6H PRN Shortness Of Breath Amlodipine Besylate 10 mg 09/03/17 16:00 09/04/17 13:55 Norvasc PO 10 mg DAILY [facility] Administration Bisoprolol Fumarate 10 mg 08/31/17 09:00 09/04/17 09:57 Zebeta PO Not Given DAILY [facility] Docusate Sodium 100 mg 08/30/17 21:00 09/04/17 20:32 Colace PO 100 mg BID [facility] Administration Enoxaparin Sodium 40 mg 08/31/17 09:00 09/04/17 10:00 Lovenox SQ 40 mg DAILY [facility] Administration Hydromorphone HCl 2 mg 09/01/17 09:49 09/01/17 20:06 Dilaudid PO 2 mg Q3HR PRN Administration Moderate to Severe Pain Ampicillin Sodium/Sulbactam 100 mls @ 100 mls/hr 09/02/17 12:00 09/04/17 18: 11 Sodium 3 gm/ Sodium Chloride IVPB 100 mls/hr Q6HR [facility] Administration Metronidazole 500 mg 09/02/17 16:00 09/04/17 20:32 Flagyl PO 500 mg TID [facility] Administration Multivitamins 1 each 08/31/17 12:00 09/04/17 13:55 Theragran PO 1 each DAILY@1200 [facility] Administration Naloxone HCl 0.2 mg 08/30/17 19:27 Narcan IV Q2M PRN Opioid Reversal Ondansetron HCl 4 mg 08/30/17 19:27 Zofran IVP Q8HR PRN Nausea And Vomiting Pantoprazole Sodium 40 mg 08/31/17 07:30 09/04/17 09:56 Protonix PO Not Given AC-BRKFST [facility] Thiamine HCl 100 mg 08/31/17 12:00 09/04/17 13:55 Vitamin B-1 PO 100 mg DAILY@1200 [facility] Administration Zolpidem Tartrate 5 mg 02/17/18 15:51 09/03/17 21:41 Ambien PO 5 mg HS PRN Administration Insomnia All other review of systems negative except the above Current medications reviewed Objective - Vital Signs Vital signs: Vital Signs Temp 98.5 F 09/04/17 15:00 Pulse 66 09/04/17 15:00 Resp 18 09/04/17 15:00 BP 156/77 09/04/17 15:00 Pulse Ox 93 L 09/04/17 15:00 Intake & Output 09/04/17 09/04/17 09/05/17 06:59 18:59 06:59 Intake Total 100 700 Output Total 20 Balance 100 680 Intake: IV 700 Ampicillin-Sulbactam 3 gm 100 In Sodium Chloride 0.9% 100 ml @ 100 mls/hr IVPB Q6HR [facility] Rx#:[id number] Intake, IV Titration 100 Amount Ampicillin-Sulbactam 3 gm 100 In Sodium Chloride 0.9% 100 ml @ 100 mls/hr IVPB Q6HR [facility] Rx#:[id number] Output: Estimated Blood Loss 20 Other: Voiding Method Toilet # Voids 3 - Exam PHYSICAL EXAMINATION: Patient is lying in the bed comfortably, no acute distress, awake alert and oriented.. HEENT: Normocephalic. Neck is supple. Pupils reactive. Nostrils clear. Oral cavity is moist. Ears reveal no drainage. Neck reveals no JVD, carotid bruits, or thyromegaly. CHEST EXAMINATION: Trachea is central. Symmetrical expansion. Lung thompson clear to auscultation and percussion. CARDIAC: Normal S1, S2 with no gallops. No murmurs ABDOMEN: Soft. Bowel sounds normal. No organomegaly. No abdominal bruits. perineal wound is dressed and is having serosanguineous discharge Extremities: reveal no edema. No clubbing or cyanosis Neurologically awake, alert, oriented x3 with well-coordinated movements. No focal deficits noted Skin: No rash or skin lesions. Psychiatric: Coperative. Nonsuicidal Musculoskeletal: No joint swelling or deformity. Normal range of motion. - Labs CBC & Chem 7: 09/03/17 07:13 09/03/17 07:13 Labs: Microbiology - Last 24 Hours (Table) 09/04/17 08:20 Gram Stain - Preliminary Scrotum Wound Culture - Preliminary 09/02/17 18:57 Blood Culture - Preliminary Blood No Growth after 48 hours 09/04/17 08:20 Anaerobic Culture - Preliminary Scrotum 08/30/17 15:24 Anaerobic Culture - Final Other - Other Assessment and Plan Assessment: Sepsis secondary to perineal abscess Extensive perineal abscess status post I&D on 08/30/2017 Fluid collection posterior to the urethra. Urology consulted. Status post I&D on 09/04/2017 Previous history of perineal abscess Hypertension. Blood pressure is not elevated. Will hold antihypertensives at this time Hyperlipidemia GERD Morbid obesity BMI 38.3 Cigar smoking and alcohol abuse History of paroxysmal atrial fibrillation. Rate controlled with beta blockers. Patient will need aspirin upon discharge DVT prophylaxis Plan: Antibiotics changed to Unasyn as per ID. Wound culture showed all for hemolytic streptococcus. Repeat blood cultures. Dressing changes.. Continue the IV hydration. Follow up closely. Further recommendations based on the clinical course. Time with Patient: Greater than 30
--- NOTE | 2017-09-04 23:07 | PN ---
PROGRESS NOTE DATE OF SERVICE: 09/04/17. REASON FOR FOLLOWUP: Perianal and scrotal abscess status post drainage. INTERVAL HISTORY: The patient was taken to the OR this morning, status post a scrotal abscess drainage. Culture has been obtained, currently pending. The patient tolerated the procedure. Pain is currently controlled with pain medication. Denies having any chest pain or shortness of breath or cough. PHYSICAL EXAMINATION: Blood pressure 156/77 with a pulse of 66, temperature of 98.5. He is 93% on room air. General description is a middle-aged male lying in bed in no distress. Respiratory system unlabored breathing, clear to auscultation anteriorly. Heart S1, S2. Regular rate and rhythm. Abdomen soft. No tenderness. Extremities: No edema of the feet. LABS: Hemoglobin 12.2, white count 17.1 with a BUN of 11, creatinine is 1.20. DIAGNOSTIC IMPRESSION AND PLAN: Patient with deep perineal and scrotal abscess status post drainage. Initial cultures were positive for Bacteroides and strep. Currently on Unasyn and Flagyl will be continued. Repeat blood culture has been negative so far. Will wait for the blood culture to finalize to determine discharge antibiotics. Continue supportive care. MMODL / IJN: [id number] /
[2017-09-04] MEDS: ZOLPIDEM 5 MG TAB PO PRN (23:30)
[2017-09-05] MEDS: AMPICILLIN-SULBACTAM 3 GM in SODIUM CHLORIDE 0.9% 100 ML IVPB SCH ×4 (06:09→23:32)
[2017-09-05] MEDS: HYDROcodone/APAP 5-325MG 1 EACH TAB PO PRN ×2 (07:25→12:10)
[2017-09-05 07:41] LABS: Basophils # (A) 0.1 k/uL (0-0.2); Basophils % (A) 0 %; Eosinophils # (A) 0.3 k/uL (0-0.7); Eosinophils % (A) 2 %; HCT 39.2 % (39.0-53.0); HGB 12.7 gm/dL (13.0-17.5); Lymphocytes # (A) 1.4 k/uL (1.0-4.8); Lymphocytes % (A) 9 %; MCHC 32.4 g/dL (31.0-37.0); MCV 101.9 fL (80.0-100.0); Mean Platelet Volume 7.4; Monocytes # (A) 0.9 k/uL (0-1.0); Monocytes % (A) 6 %; Neutrophils # (A) 12.5 k/uL (1.3-7.7); Neutrophils % (A) 81 %; Platelet Count 443 k/uL (150-450); RBC 3.85 m/uL (4.30-5.90); RDW 12.5 % (11.5-15.5); WBC 15.5 k/uL (3.8-10.6)
[2017-09-05 07:52] LABS: Anion Gap 10 mmol/L; Blood Urea Nitrogen 12 mg/dL (9-20); Calcium 8.8 mg/dL (8.4-10.2); Carbon Dioxide 23 mmol/L (22-30); Chloride 106 mmol/L (98-107); Glucose 93 mg/dL (74-99); Potassium 3.9 mmol/L (3.5-5.1); Sodium 139 mmol/L (137-145)
[2017-09-05] MEDS: metroNIDAZOLE 500 MG TAB PO SCH ×3 (08:10→21:31)
[2017-09-05] MEDS: ENOXAPARIN 40 MG/0.4 ML SYRINGE SQ SCH (08:10)
[2017-09-05] MEDS: amLODIPine 10 MG TAB PO SCH (08:11)
[2017-09-05] MEDS: BISOPROLOL 5 MG TAB PO SCH (08:11)
[2017-09-05] MEDS: DOCUSATE 100 MG CAP PO SCH ×2 (08:11→21:30)
[2017-09-05] MEDS: PANTOPRAZOLE 40 MG TABLET PO SCH (08:11)
[2017-09-05] MEDS ORDERED: IPRATROPIUM-ALBUTEROL 3 ML NEB INHALATION PRN (10:57)
--- NOTE | 2017-09-05 11:14 | P.PN ---
Subjective Patient is a 51-year-old male with a known history of hypertension, hyperlipidemia, GERD and morbid obesity came to ER with complaints of pain in the perianal area for the past 1 week. Patient was seen in the clinic and took one day of antibiotics without much improvement and presented back to ER. Patient had increased swelling and pain during last 24 hours. Patient does have a history of perineal abscess incision and drainage about 10 years ago. Patient denied any fever or chills. Denied any nausea vomiting or abdominal pain. No chest pain or shortness of breath. CT pelvis showed a showed significant abscess in the perineum extending into the left scrotal area. Patient underwent I&D by surgery today. Patient has been febrile with T-max 103.2 while in the hospital On 08/31/2017 Patient has been afebrile today. WBC count 23.9. Patient says that he is feeling better at this time. Otherwise denied any chest pain or shortness of breath. No nausea vomiting or abdominal pain. Dressing change by general surgery. 09/01/2017 Patient continues to be afebrile. WBC 15.4. Patient is feeling better but still having significant drainage from the I&D site. ID is following. Continue with antibiotics as per ID recommendations. Otherwise no chest pain no shortness of breath no other acute overnight issues. 09/02/2017 Patient became febrile last and with T-max of 100.4. Otherwise leukocytosis continues to improve. Blood cultures showed bacteroids and wound cultures showed Streptococcus david hemolytic. CT abdomen and pelvis was ordered for further evaluation. ID is on board. Antibiotics have been changed to Unasyn at this time. Otherwise patient is symptomatically improving. 09/03/2017 CT pelvis showed worsening subcutaneous scrotal edema and fluid collection posterior to the urethra. Urology has been consulted and surgical procedure is being planned for tomorrow. Otherwise continue the antibiotics. No fever no chills. 09/04/2017 Patient denied any new complaints today. No fever no chills. Patient underwent Incision and Drainage of Left Scrotal Abscess on 09/04/2017. Follow up on the fluid culture reports. Continued on IV antibiotics. No chest pain no shortness of breath. 09/05/2017 Patient is afebrile pain is well-controlled, patient cannot sit because of the pain in the perianal area. Patient is still draining from the. Will area. Objective - Vital Signs Vital signs: Vital Signs Temp 98.6 F 09/05/17 07:00 Pulse 67 09/05/17 07:00 Resp 16 09/05/17 07:00 BP 167/88 09/05/17 07:00 Pulse Ox 96 09/05/17 07:00 Intake & Output 09/04/17 09/05/17 09/05/17 18:59 06:59 18:59 Intake Total 700 690 Output Total 20 Balance 680 690 Weight 135.171 kg Intake: IV 700 100 Ampicillin-Sulbactam 3 gm 100 100 In Sodium Chloride 0.9% 100 ml @ 100 mls/hr IVPB Q6HR [facility] Rx#:[id number] Oral 590 Output: Estimated Blood Loss 20 Other: Voiding Method Toilet # Voids 2 - Exam PHYSICAL EXAMINATION: Patient is lying in the bed comfortably, no acute distress, awake alert and oriented.. HEENT: Normocephalic. Neck is supple. Pupils reactive. Nostrils clear. Oral cavity is moist. Ears reveal no drainage. Neck reveals no JVD, carotid bruits, or thyromegaly. CHEST EXAMINATION: Trachea is central. Symmetrical expansion. Lung thompson clear to auscultation and percussion. CARDIAC: Normal S1, S2 with no gallops. No murmurs ABDOMEN: Soft. Bowel sounds normal. No organomegaly. No abdominal bruits. perineal wound is dressed and is having serosanguineous discharge Extremities: reveal no edema. No clubbing or cyanosis Neurologically awake, alert, oriented x3 with well-coordinated movements. No focal deficits noted Skin: No rash or skin lesions. Psychiatric: Coperative. Nonsuicidal Musculoskeletal: No joint swelling or deformity. Normal range of motion. - Labs CBC & Chem 7: 09/05/17 07:10 09/05/17 07:10 Labs: Abnormal Lab Results - Last 24 Hours (Table) 09/05/17 Range/Units 07:10 WBC 15.5 H (3.8-10.6) k/uL RBC 3.85 L (4.30-5.90) m/uL Hgb 12.7 L (13.0-17.5) gm/dL MCV 101.9 H (80.0-100.0) fL Neutrophils # 12.5 H (1.3-7.7) k/uL Microbiology - Last 24 Hours (Table) 09/04/17 08:20 Gram Stain - Preliminary Scrotum Wound Culture - Preliminary 09/02/17 18:57 Blood Culture - Preliminary Blood No Growth after 48 hours 09/04/17 08:20 Anaerobic Culture - Preliminary Scrotum Assessment and Plan Plan: Sepsis secondary to perineal abscess Extensive perineal abscess status post I&D on 08/30/2017 Fluid collection posterior to the urethra. Urology consulted. Status post I&D on 09/04/2017 Previous history of perineal abscess Hypertension. Blood pressure is not elevated. Will hold antihypertensives at this time Hyperlipidemia GERD Morbid obesity BMI 38.3 Cigar smoking and alcohol abuse History of paroxysmal atrial fibrillation. Rate controlled with beta blockers. Patient will need aspirin upon discharge DVT prophylaxis Plan: Antibiotics changed to Unasyn as per ID. Wound culture showed all for hemolytic streptococcus. Repeat blood cultures. Dressing changes.. Continue the IV hydration. Follow up closely. Further recommendations based on the clinical course.
[2017-09-05] MEDS: MULTIVITAMINS, THERA 1 EACH TAB PO SCH (11:54)
[2017-09-05] MEDS: THIAMINE 100 MG TAB PO SCH (11:54)
--- NOTE | 2017-09-05 15:55 | P.PN ---
Subjective Progress Note Date: 09/05/17 Principal diagnosis: Scrotal abscess POD #1, s/p I & D left scrotal abscess. The patient states that he is symptomatically unchanged. Objective - Vital Signs Vital signs: Vital Signs Temp 98.6 F 09/05/17 07:00 Pulse 67 09/05/17 07:00 Resp 16 09/05/17 07:00 BP 167/88 09/05/17 07:00 Pulse Ox 96 09/05/17 07:00 Intake & Output 09/04/17 09/05/17 09/05/17 18:59 06:59 18:59 Intake Total 700 690 100 Output Total 20 Balance 680 690 100 Weight 135.171 kg Intake: IV 700 100 100 Ampicillin-Sulbactam 3 gm 100 100 100 In Sodium Chloride 0.9% 100 ml @ 100 mls/hr IVPB Q6HR [facility] Rx#:[id number] Oral 590 Output: Estimated Blood Loss 20 Other: Voiding Method Toilet # Voids 2 - Constitutional General appearance: Present: average body habitus, no acute distress - Genitourinary Genitourinary Comment(s): Normal phallus. Significant scrotal edema. Slight oozing from left inguinal incision. No drainage from scrotal or perineal incision. - Musculoskeletal Musculoskeletal: Present: gait normal - Psychiatric Psychiatric: Present: A&O x's 3, appropriate affect - Labs CBC & Chem 7: 09/05/17 07:10 09/05/17 07:10 Labs: Abnormal Lab Results - Last 24 Hours (Table) 09/05/17 Range/Units 07:10 WBC 15.5 H (3.8-10.6) k/uL RBC 3.85 L (4.30-5.90) m/uL Hgb 12.7 L (13.0-17.5) gm/dL MCV 101.9 H (80.0-100.0) fL Neutrophils # 12.5 H (1.3-7.7) k/uL Microbiology - Last 24 Hours (Table) 08/30/17 06:00 Blood Culture Gram Stain - Final Blood Blood Culture - Final Bacteroides distasonis 09/04/17 08:20 Gram Stain - Preliminary Scrotum Wound Culture - Preliminary 09/02/17 18:57 Blood Culture - Preliminary Blood No Growth after 48 hours 02/18/18 08:20 Anaerobic Culture - Preliminary Scrotum Assessment and Plan (1) Perineal abscess Current Visit: Yes Status: Acute Priority: High Code(s): L02.215 - CUTANEOUS ABSCESS OF PERINEUM SNOMED Code(s): 59162602 Plan: The packing was removed, and the wound will be packed with iodoform gauze twice a day. Continue antibiotics. Await final culture results. Time with Patient: Less than 30
[2017-09-05] MEDS: HYDROmorphone 2 MG TAB PO PRN ×2 (18:37→21:30)
[2017-09-05] MEDS: SYMBICORT 160-4.5 MCG INHALER INHALATION SCH (20:14)
[2017-09-05] MEDS: ZOLPIDEM 5 MG TAB PO PRN (21:30)
--- NOTE | 2017-09-05 22:49 | PN ---
PROGRESS NOTE DATE OF SERVICE: 09/05/2017 REASON FOR FOLLOWUP: Perineal and scrotal abscess. INTERVAL HISTORY: The patient is afebrile. Pain to the scrotum and perineum seems to be currently controlled with pain medication. Denies having any chest pain, shortness of breath or cough. No abdominal pain. No diarrhea. PHYSICAL EXAMINATION: Blood pressure is 149/77 with a pulse of 67, temperature of 99.3. He is 96% on room air. General description is a middle-aged male lying in bed in no distress. RESPIRATORY SYSTEM: Unlabored breathing. Clear to auscultation anteriorly. HEART: S1, S2. Regular rate and rhythm. ABDOMEN: Soft. No tenderness. LABS: Hemoglobin 12.7, white count of 15.5 with a BUN of 5, creatinine 1.10. DIAGNOSTIC IMPRESSION AND PLAN: Patient with a perineal and scrotal abscess, status post drainage x2. We are waiting for the scrotal abscess cultures to be finalized to determine discharge antibiotic; more likely IV, for which a PICC line will be placed. Continue with supportive care. MMODL / IJN: [id number] /
[2017-09-06] MEDS: HYDROmorphone 2 MG TAB PO PRN ×6 (01:04→21:25)
[2017-09-06] MEDS: AMPICILLIN-SULBACTAM 3 GM in SODIUM CHLORIDE 0.9% 100 ML IVPB SCH ×3 (06:03→17:40)
[2017-09-06 07:58] LABS: Basophils # (A) 0.1 k/uL (0-0.2); Basophils % (A) 1 %; Eosinophils # (A) 0.3 k/uL (0-0.7); Eosinophils % (A) 2 %; HCT 36.6 % (39.0-53.0); Lymphocytes # (A) 1.8 k/uL (1.0-4.8); Lymphocytes % (A) 13 %; MCH 32.7 pg (25.0-35.0); MCHC 32.7 g/dL (31.0-37.0); Mean Platelet Volume 7.5; Monocytes # (A) 1.1 k/uL (0-1.0); Monocytes % (A) 8 %; Neutrophils # (A) 10.9 k/uL (1.3-7.7); Neutrophils % (A) 76 %; Platelet Count 478 k/uL (150-450); RBC 3.65 m/uL (4.30-5.90); RDW 12.3 % (11.5-15.5); WBC 14.4 k/uL (3.8-10.6)
[2017-09-06] MEDS: SYMBICORT 160-4.5 MCG INHALER INHALATION SCH ×2 (08:04→20:04)
[2017-09-06] MEDS: amLODIPine 10 MG TAB PO SCH (08:53)
[2017-09-06] MEDS: PANTOPRAZOLE 40 MG TABLET PO SCH (08:53)
[2017-09-06] MEDS: ACETAMINOPHEN TAB 325 MG TAB PO PRN (08:54)
[2017-09-06] MEDS: DOCUSATE 100 MG CAP PO SCH ×2 (08:54→21:24)
[2017-09-06] MEDS: ENOXAPARIN 40 MG/0.4 ML SYRINGE SQ SCH (08:54)
[2017-09-06] MEDS: BISOPROLOL 5 MG TAB PO SCH (08:54)
[2017-09-06 08:57] LABS: ALT 24 U/L (21-72); AST 16 U/L (17-59); Albumin 2.8 g/dL (3.5-5.0); Alkaline Phosphatase 76 U/L (38-126); Anion Gap 11 mmol/L; Blood Urea Nitrogen 10 mg/dL (9-20); Calcium 8.5 mg/dL (8.4-10.2); Carbon Dioxide 20 mmol/L (22-30); Chloride 105 mmol/L (98-107); Glucose 93 mg/dL (74-99); Potassium 3.9 mmol/L (3.5-5.1); Sodium 136 mmol/L (137-145); Total Bilirubin 0.4 mg/dL (0.2-1.3); Total Protein 5.8 g/dL (6.3-8.2)
[2017-09-06] MEDS: metroNIDAZOLE 500 MG TAB PO SCH ×3 (09:01→21:25)
[2017-09-06] MEDS: MULTIVITAMINS, THERA 1 EACH TAB PO SCH (12:33)
[2017-09-06] MEDS: THIAMINE 100 MG TAB PO SCH (12:33)
--- NOTE | 2017-09-06 12:44 | P.PN ---
Subjective Patient is a 51-year-old male with a known history of hypertension, hyperlipidemia, GERD and morbid obesity came to ER with complaints of pain in the perianal area for the past 1 week. Patient was seen in the clinic and took one day of antibiotics without much improvement and presented back to ER. Patient had increased swelling and pain during last 24 hours. Patient does have a history of perineal abscess incision and drainage about 10 years ago. Patient denied any fever or chills. Denied any nausea vomiting or abdominal pain. No chest pain or shortness of breath. CT pelvis showed a showed significant abscess in the perineum extending into the left scrotal area. Patient underwent I&D by surgery today. Patient has been febrile with T-max 103.2 while in the hospital On 08/31/2017 Patient has been afebrile today. WBC count 23.9. Patient says that he is feeling better at this time. Otherwise denied any chest pain or shortness of breath. No nausea vomiting or abdominal pain. Dressing change by general surgery. 09/01/2017 Patient continues to be afebrile. WBC 15.4. Patient is feeling better but still having significant drainage from the I&D site. ID is following. Continue with antibiotics as per ID recommendations. Otherwise no chest pain no shortness of breath no other acute overnight issues. 09/02/2017 Patient became febrile last and with T-max of 100.4. Otherwise leukocytosis continues to improve. Blood cultures showed bacteroids and wound cultures showed Streptococcus david hemolytic. CT abdomen and pelvis was ordered for further evaluation. ID is on board. Antibiotics have been changed to Unasyn at this time. Otherwise patient is symptomatically improving. 09/03/2017 CT pelvis showed worsening subcutaneous scrotal edema and fluid collection posterior to the urethra. Urology has been consulted and surgical procedure is being planned for tomorrow. Otherwise continue the antibiotics. No fever no chills. 09/04/2017 Patient denied any new complaints today. No fever no chills. Patient underwent Incision and Drainage of Left Scrotal Abscess on 09/04/2017. Follow up on the fluid culture reports. Continued on IV antibiotics. No chest pain no shortness of breath. 09/05/2017 Patient is afebrile pain is well-controlled, patient cannot sit because of the pain in the perianal area. Patient is still draining from the. Will area. 09/06/2017 No overnight events patient probably will be discharged today at the decision of the antibiotics by infectious disease Constitutional: Denied any fatigue denied any fever. Cardio vascular: denied any chest pain, palpitations Gastrointestinal denied any nausea vomiting Pulmonary: Denied any shortness of breath cough Neurologic denied any new focal deficits Objective - Vital Signs Vital signs: Vital Signs Temp 97.9 F 09/06/17 10:54 Pulse 76 09/06/17 10:39 Resp 16 09/06/17 10:39 BP 162/78 09/06/17 08:27 Pulse Ox 95 09/06/17 08:27 Intake & Output 09/05/17 09/06/17 09/06/17 18:59 06:59 18:59 Intake Total 100 1660 Balance 100 1660 Intake: IV 100 Ampicillin-Sulbactam 3 gm 100 In Sodium Chloride 0.9% 100 ml @ 100 mls/hr IVPB Q6HR [facility] Rx#:[id number] Oral 1660 Other: Voiding Method Toilet Toilet # Voids 2 # Bowel Movements 1 - Exam PHYSICAL EXAMINATION: Patient is lying in the bed comfortably, no acute distress, awake alert and oriented.. HEENT: Normocephalic. Neck is supple. Pupils reactive. Nostrils clear. Oral cavity is moist. Ears reveal no drainage. Neck reveals no JVD, carotid bruits, or thyromegaly. CHEST EXAMINATION: Trachea is central. Symmetrical expansion. Lung thompson clear to auscultation and percussion. CARDIAC: Normal S1, S2 with no gallops. No murmurs ABDOMEN: Soft. Bowel sounds normal. No organomegaly. No abdominal bruits. perineal wound is dressed and is having serosanguineous discharge Extremities: reveal no edema. No clubbing or cyanosis Neurologically awake, alert, oriented x3 with well-coordinated movements. No focal deficits noted Skin: No rash or skin lesions. Psychiatric: Coperative. Nonsuicidal Musculoskeletal: No joint swelling or deformity. Normal range of motion. - Labs CBC & Chem 7: 09/06/17 07:12 09/06/17 07:12 Labs: Abnormal Lab Results - Last 24 Hours (Table) 09/06/17 09/06/17 Range/Units 07:12 07:12 WBC 14.4 H (3.8-10.6) k/uL RBC 3.65 L (4.30-5.90) m/uL Hgb 12.0 L (13.0-17.5) gm/dL Hct 36.6 L (39.0-53.0) % Plt Count 478 H (150-450) k/uL Neutrophils # 10.9 H (1.3-7.7) k/uL Monocytes # 1.1 H (0-1.0) k/uL Sodium 136 L (137-145) mmol/L Carbon Dioxide 20 L (22-30) mmol/L AST 16 L (17-59) U/L Total Protein 5.8 L (6.3-8.2) g/dL Albumin 2.8 L (3.5-5.0) g/dL Microbiology - Last 24 Hours (Table) 09/02/17 18:57 Blood Culture - Preliminary Blood No Growth after 72 hours 08/30/17 06:00 Blood Culture Gram Stain - Final Blood Blood Culture - Final Bacteroides distasonis 09/04/17 08:20 Gram Stain - Preliminary Scrotum Wound Culture - Preliminary Assessment and Plan Plan: Sepsis secondary to perineal abscess Extensive perineal abscess status post I&D on 08/30/2017 Fluid collection posterior to the urethra. Urology consulted. Status post I&D on 09/04/2017 Previous history of perineal abscess Hypertension. Blood pressure is not elevated. Will hold antihypertensives at this time Hyperlipidemia GERD Morbid obesity BMI 38.3 Cigar smoking and alcohol abuse History of paroxysmal atrial fibrillation. Rate controlled with beta blockers. Patient will need aspirin upon discharge DVT prophylaxis Plan: Antibiotics changed to Unasyn as per ID. Wound culture showed all for hemolytic streptococcus. Repeat blood cultures. Dressing changes.. Continue the IV hydration. Follow up closely. Further recommendations based on the clinical course.
[2017-09-06 13:30] VITALS: BMI 38.2
--- NOTE | 2017-09-06 19:21 | P.PN ---
Subjective Progress Note Date: 09/06/17 Pt seen and examined at bedside. No new complaints. States the incision site has had continuous drainage. States he has noticed some swelling in the area. Objective - Vital Signs Vital signs: Vital Signs Temp 97.8 F 09/06/17 15:00 Pulse 70 09/06/17 15:00 Resp 18 09/06/17 15:00 BP 150/90 09/06/17 15:00 Pulse Ox 95 09/06/17 15:00 Intake & Output 09/06/17 09/06/17 09/07/17 06:59 18:59 06:59 Intake Total 1660 200 Balance 1660 200 Weight 135.171 kg Intake: IV 200 Ampicillin-Sulbactam 3 gm 200 In Sodium Chloride 0.9% 100 ml @ 100 mls/hr IVPB Q6HR [facility] Rx#:[id number] Oral 1660 Other: Voiding Method Toilet Toilet # Voids 2 # Bowel Movements 1 - Constitutional General appearance: Present: cooperative - Respiratory Details: no difficulty with respiration - Gastrointestinal General gastrointestinal: Present: soft. Absent: distended, tenderness - Genitourinary Genitourinary Comment(s): incision sites wit packing in place, some surrounding edema, no erythema or palpable fluctuance - Psychiatric Psychiatric: Present: A&O x's 3 - Labs CBC & Chem 7: 09/06/17 07:12 09/06/17 07:12 Labs: Abnormal Lab Results - Last 24 Hours (Table) 09/06/17 09/06/17 Range/Units 07:12 07:12 WBC 14.4 H (3.8-10.6) k/uL RBC 3.65 L (4.30-5.90) m/uL Hgb 12.0 L (13.0-17.5) gm/dL Hct 36.6 L (39.0-53.0) % Plt Count 478 H (150-450) k/uL Neutrophils # 10.9 H (1.3-7.7) k/uL Monocytes # 1.1 H (0-1.0) k/uL Sodium 136 L (137-145) mmol/L Carbon Dioxide 20 L (22-30) mmol/L AST 16 L (17-59) U/L Total Protein 5.8 L (6.3-8.2) g/dL Albumin 2.8 L (3.5-5.0) g/dL Microbiology - Last 24 Hours (Table) 09/04/17 08:20 Anaerobic Culture - Preliminary Scrotum 09/04/17 08:20 Gram Stain - Final Scrotum Wound Culture - Final 09/02/17 18:57 Blood Culture - Preliminary Blood No Growth after 72 hours Assessment and Plan (1) Perineal abscess Current Visit: Yes Status: Acute Priority: High Code(s): L02.215 - CUTANEOUS ABSCESS OF PERINEUM SNOMED Code(s): 46530116 Plan: 51-year-old male with perineal and scrotal abscess - WBCs decreased to 14 from 15 - Continued drainage from site - Plan for PICC in AM and outpt Abx - Continue hygiene maintenance and perineum - Will follow leukocytosis - Likely DC tomorrow
--- NOTE | 2017-09-06 20:36 | PN ---
PROGRESS NOTE DATE OF SERVICE: 09/06/2017. REASON FOR FOLLOWUP: 1. Scrotal and perineal abscess. 2. Bacteroides bacteremia. INTERVAL HISTORY: The patient is afebrile. He has been breathing comfortably. Denies having any chest pain or cough. Pain to the groin is currently controlled. No nausea, vomiting, or any diarrhea. EXAMINATION: Blood pressure is 150/90 with a pulse of 70, temperature 97.8. He is 95% on room air. General description is a middle-aged male lying in bed in no distress. Respiratory system: Unlabored breathing, clear to auscultation anteriorly. Heart S1, S2. Regular rate and rhythm. Abdomen soft no tenderness. Scrotum remains to be swollen. Minimal drainage from the left groin incision site. LABS: Hemoglobin 12, white count of 14.4 with a BUN of 10, creatinine 1.06. DIAGNOSTIC IMPRESSION AND PLAN: Patient with perineal and scrotal abscess status post drainage x2. Scrotal culture so far negative. Initial culture did show alpha hemolytic Streptococcus and Bacteroides. The patient is currently on Unasyn 3 g every 6 hours, in addition to the oral Flagyl. We will need a PICC line because of his extensive infection and hopefully finishing therapy with either Unasyn or Rocephin and Flagyl combination. Continue supportive care. MMODL / IJN: [id number] /
--- NOTE | 2017-09-06 21:20 | P.PN ---
Subjective Progress Note Date: 09/06/17 Principal diagnosis: Scrotal abscess POD #2, s/p I & D left scrotal abscess. The patient states that he is symptomatically unchanged. Objective - Vital Signs Vital signs: Vital Signs Temp 97.8 F 09/06/17 15:00 Pulse 70 09/06/17 15:00 Resp 18 09/06/17 15:00 BP 150/90 09/06/17 15:00 Pulse Ox 95 09/06/17 15:00 Intake & Output 09/06/17 09/06/17 09/07/17 06:59 18:59 06:59 Intake Total 1660 200 Balance 1660 200 Weight 135.171 kg Intake: IV 200 Ampicillin-Sulbactam 3 gm 200 In Sodium Chloride 0.9% 100 ml @ 100 mls/hr IVPB Q6HR [facility] Rx#:[id number] Oral 1660 Other: Voiding Method Toilet Toilet # Voids 2 # Bowel Movements 1 - Constitutional General appearance: Present: average body habitus, no acute distress - Genitourinary Genitourinary Comment(s): Significant scrotal edema. Mild serosanguinous drainage from scrotal wound, which is clean. - Psychiatric Psychiatric: Present: A&O x's 3 - Labs CBC & Chem 7: 09/06/17 07:12 09/06/17 07:12 Labs: Abnormal Lab Results - Last 24 Hours (Table) 09/06/17 09/06/17 Range/Units 07:12 07:12 WBC 14.4 H (3.8-10.6) k/uL RBC 3.65 L (4.30-5.90) m/uL Hgb 12.0 L (13.0-17.5) gm/dL Hct 36.6 L (39.0-53.0) % Plt Count 478 H (150-450) k/uL Neutrophils # 10.9 H (1.3-7.7) k/uL Monocytes # 1.1 H (0-1.0) k/uL Sodium 136 L (137-145) mmol/L Carbon Dioxide 20 L (22-30) mmol/L AST 16 L (17-59) U/L Total Protein 5.8 L (6.3-8.2) g/dL Albumin 2.8 L (3.5-5.0) g/dL Microbiology - Last 24 Hours (Table) 09/02/17 18:57 Blood Culture - Preliminary Blood No Growth after 96 hours 09/04/17 08:20 Anaerobic Culture - Preliminary Scrotum 09/04/17 08:20 Gram Stain - Final Scrotum Wound Culture - Final Assessment and Plan (1) Perineal abscess Current Visit: Yes Status: Acute Priority: High Code(s): L02.215 - CUTANEOUS ABSCESS OF PERINEUM SNOMED Code(s): 46542576 Plan: Continue antibiotics and local wound care. Await final culture results.
[2017-09-06] MEDS: ZOLPIDEM 5 MG TAB PO PRN (21:25)
[2017-09-07] MEDS: AMPICILLIN-SULBACTAM 3 GM in SODIUM CHLORIDE 0.9% 100 ML IVPB SCH ×3 (00:08→12:55)
[2017-09-07] MEDS: HYDROmorphone 2 MG TAB PO PRN ×4 (00:40→10:33)
[2017-09-07 08:12] VITALS: BP 163/88; PULSE 80; TEMP 98.1
[2017-09-07 09:07] LABS: Basophils # (A) 0.1 k/uL (0-0.2); Basophils % (A) 0 %; Eosinophils # (A) 0.4 k/uL (0-0.7); Eosinophils % (A) 2 %; HCT 40.6 % (39.0-53.0); HGB 13.1 gm/dL (13.0-17.5); Lymphocytes # (A) 2.1 k/uL (1.0-4.8); Lymphocytes % (A) 13 %; MCH 32.7 pg (25.0-35.0); MCHC 32.2 g/dL (31.0-37.0); MCV 101.7 fL (80.0-100.0); Mean Platelet Volume 7.2; Monocytes % (A) 7 %; Neutrophils # (A) 12.4 k/uL (1.3-7.7); Neutrophils % (A) 77 %; Platelet Count 597 k/uL (150-450); RDW 12.4 % (11.5-15.5); WBC 16.1 k/uL (3.8-10.6)
[2017-09-07 09:15] VITALS: RESP 17
[2017-09-07] MEDS: ENOXAPARIN 40 MG/0.4 ML SYRINGE SQ SCH (09:18)
[2017-09-07] MEDS ORDERED: LIDOCAINE 2% INJ 20 MG/ML SQ ONE (10:10)
[2017-09-07] MEDS: metroNIDAZOLE 500 MG TAB PO SCH (10:35)
[2017-09-07] MEDS: PANTOPRAZOLE 40 MG TABLET PO SCH (10:35)
[2017-09-07] MEDS: BISOPROLOL 5 MG TAB PO SCH (10:35)
[2017-09-07] MEDS: DOCUSATE 100 MG CAP PO SCH (10:36)
[2017-09-07] MEDS: amLODIPine 10 MG TAB PO SCH (10:36)
--- NOTE | 2017-09-07 10:58 | IR ---
EXAMINATION TYPE: IR cvc insert >=5 years DATE OF EXAM: 09/07/2017 COMPARISON: NONE CLINICAL HISTORY: Infection Needs long-term intravenous access for antibiotics. PROCEDURE: After informed consent, the skin overlying the left basilic vein was localized with ultrasound and no sandy to be compressible and patent. An ultrasound image was obtained and submitted on the patient's c block. The overlying skin was prepped and draped and Lidocaine was used for local anesthesia. A skin ron was made with a scalpel. Access was gained to the vein under ultrasound guidance with a 21 gau ge needle and a 0.018 inch wire was advanced. Access site was dilated with Peel-Away sheath and cath eter tailored to the appropriate length and advanced such that the distal tip is at the cavoatrial ju nction. Spot image was obtained verifying placement. Catheter was fixed to the skin with suture and a sterile dressing was placed following hemostasis. Catheter was aspirated and flushed with saline. Patient was discharged in stable condition without complication.Maximal barrier technique is utiliz ed. Ultrasound image is documented on the chart. Ultrasound used with sterile technique. Fluoro time and fluoroscopic images submitted to document procedure: 44 intraoperative images, 0.7 mi nutes fluoroscopy time IMPRESSION: STATUS POST ULTRASOUND AND FLUOROSCOPIC GUIDED PICC LINE PLACEMENT, READY FOR USE. THIS PROCEDURE WAS PERFORMED BY THE UNDERSIGNED.
--- NOTE | 2017-09-07 12:52 | P.PN ---
Subjective Progress Note Date: 09/07/17 Principal diagnosis: Scrotal abscess POD #3, s/p I & D left scrotal abscess. The patient states that he is symptomatically unchanged. Objective - Vital Signs Vital signs: Vital Signs Temp 98.1 F 09/07/17 07:00 Pulse 80 09/07/17 07:00 Resp 17 09/07/17 09:10 BP 163/88 09/07/17 07:00 Pulse Ox 92 L 09/07/17 07:00 Intake & Output 09/06/17 09/07/17 09/07/17 18:59 06:59 18:59 Intake Total 200 Balance 200 Weight 135.171 kg Intake: IV 200 Ampicillin-Sulbactam 3 gm 200 In Sodium Chloride 0.9% 100 ml @ 100 mls/hr IVPB Q6HR [facility] Rx#:[id number] Other: Voiding Method Toilet Toilet Toilet # Voids 2 - Constitutional General appearance: Present: cooperative, no acute distress, obese - Genitourinary Genitourinary Comment(s): Significant scrotal edema persists. Mild serosanguineous drainage noted from the scrotal incision. No purulence or fluctuance noted. - Psychiatric Psychiatric: Present: A&O x's 3, appropriate affect - Labs CBC & Chem 7: 09/07/17 08:03 09/06/17 07:12 Labs: Abnormal Lab Results - Last 24 Hours (Table) 09/07/17 Range/Units 08:03 WBC 16.1 H (3.8-10.6) k/uL RBC 4.00 L (4.30-5.90) m/uL MCV 101.7 H (80.0-100.0) fL Plt Count 597 H (150-450) k/uL Neutrophils # 12.4 H (1.3-7.7) k/uL Microbiology - Last 24 Hours (Table) 09/02/17 18:57 Blood Culture - Preliminary Blood No Growth after 96 hours 09/04/17 08:20 Anaerobic Culture - Preliminary Scrotum 09/04/17 08:20 Gram Stain - Final Scrotum Wound Culture - Final Assessment and Plan (1) Perineal abscess Current Visit: Yes Status: Acute Priority: High Code(s): L02.215 - CUTANEOUS ABSCESS OF PERINEUM SNOMED Code(s): 40719558 Plan: Patient is to be discharged home today. He will receive Unasyn as an outpatient , and his will pack his wound twice daily. He was instructed to contact me if his condition worsens in anyway, and he will otherwise follow-up with me in 1 week.
--- NOTE | 2017-09-07 12:52 | P.DS ---
Providers Date of admission: 08/30/17 09:37 Expected date of discharge: 09/07/17 Attending physician: Priyank Urena Consults: 08/30/17 10:59 Consult Physician Urgent Consulting Provider: Farhan Velasquez Consult Reason/Comments: perineal abcess drainage Do you want consulting provider notified?: Already Contacted 08/30/17 16:52 Consult Physician Routine Consulting Provider: Mati Moore Consult Reason/Comments: medical mgmt, perineal abscess Do you want consulting provider notified?: Yes 08/31/17 11:01 Consult Physician Routine Consulting Provider: Ba Hoyt Consult Reason/Comments: Abscess, abx recommendations Do you want consulting provider notified?: Yes [facility] Course: 51-year-old male who has a history of perianal abscess left scrotal abscess has had a prior incision and drainage including an anal fistulectomy. Patient reportedly developed pain in the rectal area several weeks ago was placed on antibiotics started in the outpatient setting by his PCP. There was no improvement patient was advised to come to the emergency room Patient had a CAT scan showed a significant abscess in the perineal area extending into the left scrotal area with a change in urination. Patient was admitted to Dr. Urena service surgical service. on August 30 incision and drainage of perineal abscess and scrotal abscess. Was a large pus-containing abscess which extended into the base of the scrotum. done by dr eaton Infectious disease consultation was obtained.seen by dr hoyt was also seen by urology dr robbins did undergo an incision and drainage of the left scrotal abscess on the by dr robbins . Patient was monitored closely and there was a noted improvement. Patient was felt to be appropriate to be discharged. Patient did have a PICC line placed on September 07. Infectious disease Dr. Hoyt recommended patient be started on Unasyn 3 g IV every 6 hours for 2 weeks with by mouth Flagyl for 2 weeks. Area wound was repacked with iodoform daily. Reinforced to the patient to report any fever chills or increase. Rectal pain Impression discharge diagnosis (1) Perineal abscess Current Visit: Yes Status: Acute Priority: High Code(s): L02.215 - CUTANEOUS ABSCESS OF PERINEUM SNOMED Code(s): 30550488 Present on admission Sepsis febrile leukocytosis tachycardic secondary to perineal abscess Extensive perineal abscess status post I&D on 08/30/2017 Fluid collection posterior to the urethra. Urology consulted. Status post I&D on 09/04/2017 Previous history of perineal abscess Hypertension. Blood pressure is not elevated. Will hold antihypertensives at this time Hyperlipidemia GERD Morbid obesity BMI 38.3 Cigar smoking History of paroxysmal atrial fibrillation. History of recurrent perianal abscess left scrotal with prior incision and drainages including anal fissure anatomy Status post incision and drainage left scrotal abscess on September 04 Dictating discharge summary for Dr. Cornelio teresa on behalf of Dr. Urena The above impression and plan of care have been discussed and directed by signing physician. Susanne Bejarano nurse practitioner acting as scribe for signing physician. Patient Condition at Discharge: Good Plan - Discharge Summary Discharge Rx Participant: Yes New Discharge Prescriptions: New metroNIDAZOLE [Flagyl] 500 mg PO TID #42 tab Budesonide-Formot 160-4.5 Mcg [Symbicort 160-4.5 Mcg Inhaler] 2 puff INHALATION BID #1 inhaler Ampicillin-Sulbactam [Unasyn] 3 gm IVPB Q6HR #56 vial HYDROcodone/APAP 7.5-325MG [[place] 7.5-325] 1 tab PO Q4H PRN #20 tab PRN Reason: Mild To Moderate Pain Ibuprofen [Motrin] 200 mg PO Q4H #30 tab Aspirin 81 mg PO DAILY #30 chewable Discontinued Ciprofloxacin HCl [Cipro] 500 mg PO Q12HR No Action Omeprazole [PriLOSEC] 20 mg PO AC-BRKFST Albuterol Inhaler [Ventolin Hfa Inhaler] 1 - 2 puff INHALATION RT-Q6H PRN PRN Reason: Shortness Of Breath [place]-3 Fatty Acids/Fish Oil [Fish Oil 1,000 mg Softgel] 1 cap PO DAILY amLODIPine [Norvasc] 10 mg PO DAILY Hydrochlorothiazide [Hydrodiuril] 25 mg PO DAILY Bisoprolol Fumarate [Zebeta] 10 mg PO DAILY Olmesartan Medoxomil 40 mg PO DAILY Discharge Medication List Albuterol Inhaler [Ventolin Hfa Inhaler] 1 - 2 puff INHALATION RT-Q6H PRN [History] [place]-3 Fatty Acids/Fish Oil [Fish Oil 1,000 mg Softgel] 1 cap PO DAILY [History] Omeprazole [PriLOSEC] 20 mg PO AC-BRKFST 12/28/14 [History] Bisoprolol Fumarate [Zebeta] 10 mg PO DAILY 08/30/17 [History] Hydrochlorothiazide [Hydrodiuril] 25 mg PO DAILY 08/30/17 [History] Olmesartan Medoxomil 40 mg PO DAILY 08/30/17 [History] amLODIPine [Norvasc] 10 mg PO DAILY 08/30/17 [History] metroNIDAZOLE [Flagyl] 500 mg PO TID #42 tab 09/02/17 [Rx] Budesonide-Formot 160-4.5 Mcg [Symbicort 160-4.5 Mcg Inhaler] 2 puff INHALATION BID #1 inhaler 09/06/17 [Rx] Ampicillin-Sulbactam [Unasyn] 3 gm IVPB Q6HR #56 vial 09/07/17 [Rx] Aspirin 81 mg PO DAILY #30 chewable 09/07/17 [Rx] HYDROcodone/APAP 7.5-325MG [[place] 7.5-325] 1 tab PO Q4H PRN #20 tab 09/07/17 [Rx ] Ibuprofen [Motrin] 200 mg PO Q4H #30 tab 09/07/17 [Rx] Follow up Appointment(s)/Referral(s): Danielle Fernández III, MD [Primary Care Provider] - 1-2 days Ba Hoyt MD [STAFF PHYSICIAN] - 1 Week Priyank Urena MD [STAFF PHYSICIAN] - 09/09/17 Activity/Diet/Wound Care/Special Instructions: Notify if any fever chills increased pain in the rectal area to Dr. Urena Discharge Disposition: HOME WITH HOME HEALTH SERVICES
[2017-09-07] MEDS: THIAMINE 100 MG TAB PO SCH (12:55)
[2017-09-07] MEDS: MULTIVITAMINS, THERA 1 EACH TAB PO SCH (12:55)
[2017-09-07] MEDS: SYMBICORT 160-4.5 MCG INHALER INHALATION SCH (13:04)
--- NOTE | 2017-09-07 14:58 | PN ---
PROGRESS NOTE DATE OF SERVICE: 09/07/2017 REASON FOR FOLLOWUP: Perineal and the scrotal abscess, culture with strep and Bacteroides bacteremia. INTERVAL HISTORY: The patient is afebrile, he is breathing comfortably. Denies having any chest pain, shortness of breath or cough. Pain into the scrotum and groin area has improved, drainage has decreased. Patient really insisting on going home. On examination, blood pressure 163/88 with a pulse of 80, temperature 98.1. He is 92% on room air. General description is a middle-aged male, lying in bed in no distress. RESPIRATORY SYSTEM: Unlabored breathing, clear to auscultation anteriorly. HEART: S1, S2, regular rate and rhythm. ABDOMEN: Soft, no tenderness. The left groin area swelling, redness has slightly decreased. LABS: The initial culture has been positive for Alpha Hemolytic Streptococcus and Bacteroides Distasonis. Repeat cultures done in OR from scrotum has been negative so far. DIAGNOSTIC IMPRESSION AND PLAN: Patient with perineal and scrotal abscess, status post drainage, culture with Alpha Hemolytic Strep and Bacteroides bacteremia. Repeat cultures have been negative so far. The patient seemed to be insisting on going home. He will continue Unasyn 3 g q.6 along with oral Flagyl with close outpatient followup. Advise if any new fever at home or any worsening swelling, redness to let us know right away. Continue supportive care. MMODL / IJN: [id number] /
== END 2017-09-07 14:00 | disposition home health service (06) | DRG 854 ==
LOC: EC 05:32 → 5MS5E 09:37 → 5ONC 09-04 17:30
PROVIDERS: ADMIT Surgery; ATTEND Surgery
PROC: 0V950ZZ Drainage of Scrotum, Open Approach (ICD-10-PCS; 2017-08-30)
PROC: 0J9B0ZZ Drainage of Perineum Subcutaneous Tissue and Fascia, Open Approach (ICD-10-PCS; principal; 2017-08-30 13:45)
PROC: 0V950ZZ Drainage of Scrotum, Open Approach (ICD-10-PCS; 2017-09-04)
PROC: 02HV33Z Insertion of Infusion Device into Superior Vena Cava, Percutaneous Approach (ICD-10-PCS; 2017-09-07)
DX: A41.50 Gram-negative sepsis, unspecified (principal); L02.215 Cutaneous abscess of perineum; E66.01 Morbid (severe) obesity due to excess calories; B95.2 Enterococcus as the cause of diseases classified elsewhere; N49.2 Inflammatory disorders of scrotum; E78.5 Hyperlipidemia, unspecified; F10.10 Alcohol abuse, uncomplicated; I10 Essential (primary) hypertension; I48.0 Paroxysmal atrial fibrillation; J44.9 Chronic obstructive pulmonary disease, unspecified; K21.9 Gastro-esophageal reflux disease without esophagitis; K57.90 Diverticulosis of intestine, part unspecified, without perforation or abscess without bleeding; F17.290 Nicotine dependence, other tobacco product, uncomplicated; Z68.38 Body mass index [BMI] 38.0-38.9, adult; Z79.899 Other long term (current) drug therapy
CPT/HCPCS: 36415; 36569; 72193; 76937; 77001; 80048; 80053; 80202; 81001; 83605; 85025; 87040; 87070; 87075; 87077; 87186; 87205; 94760; 96365; 96375; 96376; 99284

== ENCOUNTER → 2021-02-20 | Outpatient (CLI) | payer BC ==
--- NOTE | 2021-02-23 10:15 | CTL ---
EXAMINATION TYPE: CT Low Dose Lung DATE OF EXAM ORDERED: 02/20/2021 HISTORY: 55-year-old male Personal hx tobacco use. C/o cough. Technologist notes: PT very nervous and diaphoretic during test. Lung cancer screening CT DLP: 101.[address] CTDI: 2.6 mGy Automated exposure control for dose reduction was used. SCREENING VISIT: Baseline COMPARISON: None TECHNIQUE: Low dose computed tomography scan was performed through the chest with coronal and sagitta l reconstructions. CT DIAGNOSTIC QUALITY: Satisfactory FINDINGS: Heart normal size without pericardial effusion. Mild proximal LAD coronary artery calcifications. Mildly ectatic ascending aorta measuring up to 3.7 cm. Conventional arch vessel branching anatomy. No thoracic lymphadenopathy by CT size criteria. Moderate diffuse bronchial wall thickening. Tiny 2 mm peripheral right midlung pulmonary nodule, axial image 140. A few areas of minimal strandy atelectasis suggested in the inferior lingula. No consolidation or pleural effusion. Limited assessment of the upper abdomen due to excessive noise from low-dose CT technique. Bones: Some bridging anterior plate spondylosis lower thoracic spine. Diminished density of the C7 an d T1 vertebral bodies on sagittal image 204 suspected to be due to beam hardening artifact from the p atient's shoulders. Similarly, decreased density of T12 and L1 is also noted. IMPRESSION: 1. LungRADS 2 - benign; solitary tiny 2 mm right midlung pulmonary nodule at baseline. 2. Moderate bronchial wall thickening suggests bronchitis or chronic asthma. Recommend smoking cessat ion. CT LUNG RAD AND CT CHEST RECOMMENDATION: Lung-Rad 2 Benign Appearance or Behavior: Continue annual sc reening with LDCT in 12 months.
== END | disposition home or self-care (01) ==
LOC: RADCTMAIN 15:43
PROVIDERS: ATTEND Family Medicine
DX: Z12.2 Encounter for screening for malignant neoplasm of respiratory organs (principal); R91.1 Solitary pulmonary nodule; F17.210 Nicotine dependence, cigarettes, uncomplicated
CPT/HCPCS: 71271

== ENCOUNTER 2021-06-05 11:06 | Emergency (ER) | payer BC ==
--- NOTE | 2021-06-05 11:39 | ED ---
URI HPI - General Chief Complaint: Upper Respiratory Infection Stated Complaint: Covid+, needs antibodies Time Seen by Provider: 06/05/21 11:28 Source: patient Mode of arrival: ambulatory - History of Present Illness Initial Comments: Patient is a 55-year-old male that presents to the emergency department complaining of cough fatigue and being Covid positive as of this morning. Patient did bring his positive test with them. Patient wishes to undergo monoclonal antibody infusion. Patient does note that he does smoke per day heavily. He was in no apparent distress or pain. He denied any chest pain shortness of breath headache nausea vomiting diarrhea constipation fever chills. - Related Data Home Medications Medication Instructions Recorded Confirmed Albuterol Inhaler (Mhu) [Ventolin 1 - 2 puff INHALATION RT-Q6H PRN 12/28/14 08/30/17 Hfa Inhaler (Mhu)] [place]-3 Fatty Acids/Fish Oil [Fish 1 cap PO DAILY 12/28/14 08/30/17 Oil 1,000 mg Softgel] Omeprazole [PriLOSEC] 20 mg PO AC-BRKFST 12/28/14 08/30/17 Bisoprolol Fumarate [Zebeta] 10 mg PO DAILY 08/30/17 08/30/17 Olmesartan Medoxomil 40 mg PO DAILY 08/30/17 08/30/17 amLODIPine [Norvasc] 10 mg PO DAILY 08/30/17 08/30/17 hydroCHLOROthiazide [Hydrodiuril] 25 mg PO DAILY 08/30/17 08/30/17 Previous Rx's Medication Instructions Recorded metroNIDAZOLE [Flagyl] 500 mg PO TID #42 tab 09/02/17 Budesonide-Formot 160-4.5 Mcg 2 puff INHALATION BID #1 inhaler 09/06/17 [Symbicort 160-4.5 Mcg Inhaler] Ampicillin-Sulbactam [Unasyn] 3 gm IVPB Q6HR #56 vial 09/07/17 Aspirin 81 mg PO DAILY #30 chewable 09/07/17 HYDROcodone/APAP 7.5-325MG [[place] 1 tab PO Q4H PRN #20 tab 09/07/17 7.5-325] Ibuprofen [Motrin] 200 mg PO Q4H #30 tab 09/07/17 Allergies Allergy/AdvReac Type Severity Reaction Status Date / Time No Known Allergies Allergy Verified 06/05/21 11:25 Review of Systems ROS Statement: Those systems with pertinent positive or pertinent negative responses have been documented in the HPI. ROS Other: All systems not noted in ROS Statement are negative. Past Medical History Past Medical History: GERD/Reflux, Hypertension Additional Past Medical History / Comment(s): Current URI per pt, diverticulitis with small abscess, pt denies COPD. History of Any Multi-Drug Resistant Organisms: None Reported Past Surgical History: Tonsillectomy Additional Past Surgical History / Comment(s): tail bone abscess, rectal fistula, wisdom teeth extraction, colonoscopy. Past Anesthesia/Blood Transfusion Reactions: No Reported Reaction Past Psychological History: No Psychological Hx Reported Smoking Status: Current every day smoker Past Alcohol Use History: Daily, Heavy Past Drug Use History: Marijuana - Past Family History Father Family Medical History: Cancer Additional Family Medical History / Comment(s): leukemia Mother Family Medical History: Cancer Additional Family Medical History / Comment(s): lung cancer Brother(s) Family Medical History: Cancer Additional Family Medical History / Comment(s): prostate cancer General Exam General appearance: alert, in no apparent distress, obese Head exam: Present: atraumatic, normocephalic, normal inspection Eye exam: Present: normal appearance, PERRL, EOMI. Absent: scleral icterus, conjunctival injection, periorbital swelling ENT exam: Present: normal exam, mucous membranes moist Neck exam: Present: normal inspection Respiratory exam: Present: normal lung sounds bilaterally, rhonchi (Right upper lobe). Absent: respiratory distress, wheezes, rales, stridor Cardiovascular Exam: Present: regular rate, normal rhythm, normal heart sounds. Absent: systolic murmur, diastolic murmur, rubs, gallop, clicks Extremities exam: Present: normal inspection, full ROM, normal capillary refill. Absent: tenderness, pedal edema, joint swelling, calf tenderness Neurological exam: Present: alert, oriented X3 Psychiatric exam: Present: normal affect, normal mood Skin exam: Present: warm, dry, intact, normal color. Absent: rash Course Vital Signs 06/05/21 11:21 Temperature 98.5 F Pulse Rate 81 Respiratory 20 Rate Blood Pressure 161/81 O2 Sat by Pulse 96 Oximetry Medical Decision Making - Medical Decision Making 55-year-old male Covid-positive wanting monoclonal antibody infusion. Upon physical exam patient is well-appearing in no apparent distress. Monoclonal antibodies will be ordered. Case discussed with Dr. Catalan, patient discharge. Disposition Clinical Impression: COVID Disposition: HOME SELF-CARE Condition: Stable Instructions (If sedation given, give patient instructions): Coronavirus Disease 2019 (COVID-19) Additional Instructions: Please return to the Emergency Department if symptoms worsen or any other concerns. Follow-up with primary care 1-2 days. Quarantine per CDC guidelines. Take Tylenol Motrin as needed for any fractures. Is patient prescribed a controlled substance at d/c from ED?: No Referrals: Danielle Fernández III, MD [Primary Care Provider] - 1-2 days Time of Disposition: 11:39
[2021-06-05] MEDS ORDERED: SODIUM CHLORIDE 0.9% 50 ML IVPB ONE (12:15)
[2021-06-05 12:16] VITALS: BP 146/81; PULSE 74; RESP 18; TEMP 99.2
[2021-06-05] MEDS ORDERED: BAMLANIVIMAB (EUA) 700 MG, ETESEVIMAB (EUA) 1,400 MG in SODIUM CHLORIDE 0.9% 50 ML IVPB ONE (12:30)
== END 2021-06-05 13:56 | disposition home or self-care (01) ==
LOC: EC 11:06
DX: U07.1 COVID-19 (principal); I10 Essential (primary) hypertension; F17.200 Nicotine dependence, unspecified, uncomplicated; K21.9 Gastro-esophageal reflux disease without esophagitis; Z79.899 Other long term (current) drug therapy
CPT/HCPCS: 99283; 96365; J3490

== ENCOUNTER → 2023-03-15 | Outpatient (CLI) | payer BC ==
--- NOTE | 2023-03-15 14:34 | CTL ---
EXAMINATION TYPE: CT Low Dose Lung DATE OF EXAM: 03/15/2023 12:59 PM CLINICAL INDICATION:Male, 57 years old with history of Z12.2; Personal history of tobacco use and cou gh. , history of tobacco use. COMPARISON: 02/20/2021 TECHNIQUE: Multiple axial non-contrast scans were obtained from approximately the lung apices through the upper abdomen. Coronal and sagittal reformatted images were obtained. Low dose technique was uti lized. CT DLP: 111 mGycm, Automated exposure control for dose reduction was used. CT Contrast: Contrast used: None Oral contrast used: None FINDINGS: ======== Lack of intravenous contrast and low dose technique limits the evaluation of the vascular and soft ti ssue structures. LUNGS: No evidence of pulmonary fibrosis. No evidence of focal consolidation, pneumothorax or pleural effusion. Mild emphysema changes are seen throughout the lungs. Nodules: RUL: None. RML: None. RLL: None. PEDRO: None. LLL: None. AIRWAY: Patent and unremarkable. HEART: Size within normal limits. Scattered coronary artery calcifications. MEDIASTINUM: No gross evidence of adenopathy. VASCULATURE: No aortic aneurysm. MUSCULOSKELETAL: No acute osseous abnormalities SOFT TISSUES/LYMPH NODES: Unremarkable. LOWER NECK: No significant findings. UPPER ABDOMEN: No significant findings. IMPRESSION: 1. No clinically significant pulmonary nodules. 2. Mild emphysema. CT LUNG RAD AND CT CHEST RECOMMENDATION: Lung-Rad 1 Negative: Continue annual screening with LDCT in 12 months. S Modifier (other clinically significant findings): None Recommend smoking cessation (if current smoker), or continuation of smoking cessation (if prior smoke r). Annual screening for lung cancer with low-dose computed tomography is recommended in adults ages 55 to 77 years who have a 30 pack-year smoking history and currently smoke or have quit within the pa st 15 years. Screening should be discontinued once a person has not smoked for 15 years or develops a health problem that substantially limits life expectancy or the ability or willingness to have curat owen lung surgery. Lung rads 2021 [email or web address]
== END | disposition home or self-care (01) ==
LOC: RADCTMAIN 12:33
PROVIDERS: ATTEND Family Medicine
DX: Z12.2 Encounter for screening for malignant neoplasm of respiratory organs (principal); J43.9 Emphysema, unspecified; F17.210 Nicotine dependence, cigarettes, uncomplicated
CPT/HCPCS: 71271

== ENCOUNTER → 2023-11-04 | Outpatient (CLI) | payer BC ==
--- NOTE | 2023-11-05 11:21 | US ---
EXAMINATION TYPE: US extremity nonvasc mass RT DATE OF EXAM: 11/04/2023 COMPARISON: NONE CLINICAL INDICATION: Male, 57 years old with history of M21.931 UNSPECIFIED ACQUIRED DEFORMITY OF RIG HT FO; Patient feels lump x 6 months, no pain. TECHNIQUE: Scanned right wrist at patient's area of lump. FINDINGS: *Complex area seen within the right wrist: 1.8 x 2.3 x 1.2 cm. IMPRESSION: 2.3 x 1.8 x 1.2 cm bilobed well-circumscribed hypoechoic mass in the area of clinical co ncern in the patient's right wrist. There is no internal blood flow. Finding is nonspecific possibly a ganglion cyst.
== END | disposition home or self-care (01) ==
LOC: RADUSWWP 15:55
PROVIDERS: ATTEND Family Medicine
DX: M21.931 Unspecified acquired deformity of right forearm (principal); R22.31 Localized swelling, mass and lump, right upper limb

== ENCOUNTER 2023-11-18 13:01 | Emergency (ER) | payer BC ==
[2023-11-18 13:17] VITALS: TEMP 98.4
--- NOTE | 2023-11-18 13:29 | ED ---
Dizziness HPI - General Chief Complaint: Dizziness Stated Complaint: Dizziness, Hypertension Time Seen by Provider: 11/18/23 13:17 Source: patient, RN notes reviewed Mode of arrival: ambulatory Limitations: no limitations - History of Present Illness Initial Comments: This is a 57-year-old male who presents to the emergency department for dizziness and problems with his blood pressure. States over the last 2 days, his blood pressure has been in the 140s to 160s systolically, which is abnormal for him. He has also noticed that he feels dizzy and lightheaded. Also describes this as a tingling sensation in his head. He does not have any visual changes or headaches. Denies any chest pain but does have some shortness of breath. Reports history of COPD. Does not believe that dizziness is positional. Denies any nausea or vomiting. He does note a history of vertigo and states that symptoms may be similar. Also notes changing his diet recently in an attempt to be healthier. MD Complaint: dizziness, lightheadedness - Related Data Home Medications Medication Instructions Recorded Confirmed Albuterol Inhaler [Ventolin Hfa 1 - 2 puff INHALATION RT-Q6H PRN 12/28/14 08/30/17 Inhaler] [place]-3 Fatty Acids/Fish Oil [Fish 1 cap PO DAILY 12/28/14 08/30/17 Oil 1,000 mg Softgel] Omeprazole [PriLOSEC] 20 mg PO AC-BRKFST 12/28/14 08/30/17 Bisoprolol Fumarate [Zebeta] 10 mg PO DAILY 08/30/17 08/30/17 Olmesartan Medoxomil 40 mg PO DAILY 08/30/17 08/30/17 amLODIPine [Norvasc] 10 mg PO DAILY 08/30/17 08/30/17 hydroCHLOROthiazide [Hydrodiuril] 25 mg PO DAILY 08/30/17 08/30/17 Previous Rx's Medication Instructions Recorded metroNIDAZOLE [Flagyl] 500 mg PO TID #42 tab 09/02/17 Budesonide-Formot 160-4.5 Mcg 2 puff INHALATION BID #1 inhaler 09/06/17 [Symbicort 160-4.5 Mcg Inhaler] Ampicillin-Sulbactam [Unasyn 3 gm 3 gm IVPB Q6HR #56 vial 09/07/17 vial] Aspirin 81 mg PO DAILY #30 chewable 09/07/17 HYDROcodone/APAP 7.5-325MG [[place] 1 tab PO Q4H PRN #20 tab 09/07/17 7.5-325] Ibuprofen [Motrin] 200 mg PO Q4H #30 tab 09/07/17 Meclizine HCl 25 mg PO QID PRN #30 tab 11/18/23 Allergies Allergy/AdvReac Type Severity Reaction Status Date / Time No Known Allergies Allergy Verified 11/18/23 13:05 Review of Systems ROS Statement: Those systems with pertinent positive or pertinent negative responses have been documented in the HPI. ROS Other: All systems not noted in ROS Statement are negative. Past Medical History Past Medical History: GERD/Reflux, Hypertension Additional Past Medical History / Comment(s): Current URI per pt, diverticulitis with small abscess, pt denies COPD. History of Any Multi-Drug Resistant Organisms: None Reported Past Surgical History: Tonsillectomy Additional Past Surgical History / Comment(s): tail bone abscess, rectal fistula, wisdom teeth extraction, colonoscopy. Past Anesthesia/Blood Transfusion Reactions: No Reported Reaction Past Psychological History: No Psychological Hx Reported Smoking Status: Current every day smoker Past Alcohol Use History: Daily, Heavy Past Drug Use History: Marijuana - Past Family History Father Family Medical History: Cancer Additional Family Medical History / Comment(s): leukemia Mother Family Medical History: Cancer Additional Family Medical History / Comment(s): lung cancer Brother(s) Family Medical History: Cancer Additional Family Medical History / Comment(s): prostate cancer General Exam Limitations: no limitations General appearance: alert, in no apparent distress Head exam: Present: atraumatic, normocephalic, normal inspection Eye exam: Present: normal appearance, PERRL, EOMI. Absent: scleral icterus, conjunctival injection, periorbital swelling Respiratory exam: Present: wheezes, decreased breath sounds, prolonged ex piratory Cardiovascular Exam: Present: regular rate, normal rhythm, normal heart sounds. Absent: systolic murmur, diastolic murmur, rubs, gallop, clicks Neurological exam: Present: alert, oriented X3, CN II-XII intact Expanded Cerebellar function: Finger to Nose: Normal, [place]: Normal Motor strength exam: RUE: 5, LUE: 5, RLE: 5, LLE: 5 Psychiatric exam: Present: normal affect, normal mood Skin exam: Present: warm, dry, intact, normal color. Absent: rash Course Vital Signs 11/18/23 11/18/23 11/18/23 13:03 13:05 13:50 Temperature 98.4 F Pulse Rate 72 75 Respiratory 20 18 Rate Blood Pressure 161/97 146/77 Blood Pressure 129/76 [Right Arm Supine] O2 Sat by Pulse 98 95 Oximetry 11/18/23 11/18/23 11/18/23 13:53 13:56 15:10 Temperature Pulse Rate 76 Respiratory 18 Rate Blood Pressure 139/74 Blood Pressure 139/81 139/74 [Right Arm Supine] O2 Sat by Pulse 97 Oximetry Medical Decision Making - Medical Decision Making This is a 57 year old male who presents to the emergency department for dizziness. Was pt. sent in by a medical professional or institution? @ -No Did you speak to anyone other than the patient for history? @ -No Did you review nursing and triage notes? @ -Yes, and I agree, it is accurate with regards to the patient's symptoms. Were old charts reviewed? @ -No Differential Diagnosis? @ -Differential Dizziness: Benign paroxysmal positional Vertigo, Menieres disease, otitis media, acoustic neuroma, vertebrobasilar insufficiency, cerebellar stroke, encephalitis, hypovolemic, arrhythmia, coronary artery syndrome, anemia, this is not meant to be an all-inclusive list EKG interpreted by me (3pts min.)? @ -EKG interpreted by me demonstrating the following: Sinus rhythm. Ventricular rate 74 bpm, AR interval 149 ms, QRS duration 154 ms, QTc 457 ms. X-rays interpreted by me (1pt min.)? @ -Chest x-ray obtained, my interpretation identifies no localized consolidations or infiltrates. CT interpreted by me (1pt min.)? @ -CT scan of the brain obtained. My interpretation identifies no evidence of an acute intracranial hemorrhage. U/S interpreted by me (1pt. min.)? @ -Not obtained What testing was considered but not performed? (CT, X-rays, U/S, labs)? Why? @ -None What meds were considered but not given? Why? @ -None Did you discuss the management of the patient with other professionals? @ -No Did you reconcile home meds? @ -No Was smoking cessation discussed for >3mins.? @ -I discussed smoking cessation for greater than 3 minutes. The risk of sm oking were discussed with the patient including but not limited to risks of cancer, stroke, coronary artery disease and COPD. Also discussed with patient were multiple methods of quitting smoking. Lastly we discussed the financial cost of smoking. Was critical care preformed (if so, how long)? @ -No Were there social determinants of health that impacted care today? How? (Homelessness, low income, unemployed, alcoholism, drug addiction, transportation, low edu. Level, literacy, decrease access to med. care, [facility], rehab)? @ -No Was there de-escalation of care discussed even if they declined? (Discuss DNR or withdrawal of care, Hospice)? @ -No What co-morbidities impacted this encounter? (DM, HTN, Smoking, COPD, CAD, Cancer, CVA, Hep., AIDS, mental health diagnosis, sleep apnea, morbid obesity)? @ -Smoking, HTN Was patient admitted / discharged? @ -Discharged. Lab work unremarkable. Urinalysis negative for signs of infection. HINTS exam negative. CT scan of the brain obtained revealing no acute process. Chest x-ray obtained also revealing no acute findings. Orthostatics obtained and found to be negative. Patient treated with IV fluids and meclizine, which he states was helpful. Discussed the possibility of symptoms being related to vertigo or his dietary changes. Prescription for meclizine provided with dosing instructions reviewed. Advised remaining well- hydrated and changing his diet to see if that helps. Also advised close follow- up with his primary care provider. Patient discharged home in stable condition. Undiagnosed new problem with uncertain prognosis? @ -None Drug Therapy requiring intensive monitoring for toxicity (Heparin, Nitro, Insulin, Cardizem)? @ -None Were any procedures done? @ -None Diagnosis/symptom? @ -Dizziness Acute, or Chronic, or Acute on Chronic? @ -Acute Uncomplicated (without systemic symptoms) or Complicated (systemic symptoms)? @ -Uncomplicated Side effects of treatment? @ -None Exacerbation, Progression, or Severe Exacerbation] @ -Not applicable Poses a threat to life or bodily function? @ -Unlikely Return precautions reviewed in depth, the patient is instructed to return to the emergency department with any new, worsening, or concerning symptoms. Patient v erbalized understanding. This case was discussed in detail with the attending ED physician, Dr. Catalan. Presentation, findings, and treatment plan discussed in detail as well. - Lab Data Result diagrams: 11/18/23 13:22 11/18/23 13:22 Lab Results 11/18/23 11/18/23 11/18/23 Range/Units 13:22 13:22 13:22 WBC 9.1 (3.8-10.6) k/uL RBC 5.26 (4.30-5.90) m/uL Hgb 17.2 (13.0-17.5) gm/dL Hct 51.8 (39.0-53.0) % MCV 98.5 (80.0-100.0) fL MCH 32.7 (25.0-35.0) pg MCHC 33.2 (31.0-37.0) g/dL RDW 13.8 (11.5-15.5) % Plt Count 320 (150-450) k/uL MPV 7.7 Neutrophils % 70 % Lymphocytes % 18 % Monocytes % 9 % Eosinophils % 1 % Basophils % 1 % Neutrophils # 6.3 (1.3-7.7) k/uL Lymphocytes # 1.7 (1.0-4.8) k/uL Monocytes # 0.8 (0-1.0) k/uL Eosinophils # 0.1 (0-0.7) k/uL Basophils # 0.1 (0-0.2) k/uL PT 13.0 H (10.0-12.5) sec INR 1.2 H (<1.2) Sodium 134 L (137-145) mmol/L Potassium 4.0 (3.5-5.1) mmol/L Chloride 102 (98-107) mmol/L Carbon Dioxide 23 (22-30) mmol/L Anion Gap 9 mmol/L BUN 14 (9-20) mg/dL Creatinine 0.59 L (0.66-1.25) mg/dL Est GFR (CKD-EPI)AfAm >90 (>60 ml/min/1.73 sqM) Est GFR (CKD-EPI)NonAf >90 (>60 ml/min/1.73 sqM) Glucose 99 (74-99) mg/dL POC Glucose (mg/dL) (70-110) mg/dL POC Glu [employer] ID Plasma Lactic Acid Matthew (0.7-2.0) mmol/L Calcium 9.2 (8.4-10.2) mg/dL Magnesium 1.5 L (1.6-2.3) mg/dL Total Bilirubin 0.9 (0.2-1.3) mg/dL AST 27 (17-59) U/L ALT 21 (4-49) U/L Alkaline Phosphatase 99 (38-126) U/L Troponin I (0.000-0.034) ng/mL Total Protein 7.4 (6.3-8.2) g/dL Albumin 4.1 (3.5-5.0) g/dL TSH 1.120 (0.465-4.680) mIU/L Urine Color Urine Appearance (Clear) Urine pH (5.0-8.0) Ur Specific [place] (1.001-1.035) Urine Protein (Negative) Urine Glucose (UA) (Negative) Urine Ketones (Negative) Urine Blood (Negative) Urine Nitrite (Negative) Urine Bilirubin (Negative) Urine Urobilinogen (<2.0) mg/dL Ur Leukocyte Esterase (Negative) Urine RBC (0-5) /hpf Urine WBC (0-5) /hpf Ur Squamous Epith Cells (0-4) /hpf Amorphous Sediment (None) /hpf Hyaline Casts (0-2) /lpf Urine Mucus (None) /hpf 11/18/23 11/18/23 11/18/23 Range/Units 13:22 13:22 13:41 WBC (3.8-10.6) k/uL RBC (4.30-5.90) m/uL Hgb (13.0-17.5) gm/dL Hct (39.0-53.0) % MCV (80.0-100.0) fL MCH (25.0-35.0) pg MCHC (31.0-37.0) g/dL RDW (11.5-15.5) % Plt Count (150-450) k/uL MPV Neutrophils % % Lymphocytes % % Monocytes % % Eosinophils % % Basophils % % Neutrophils # (1.3-7.7) k/uL Lymphocytes # (1.0-4.8) k/uL Monocytes # (0-1.0) k/uL Eosinophils # (0-0.7) k/uL Basophils # (0-0.2) k/uL PT (10.0-12.5) sec INR (<1.2) Sodium (137-145) mmol/L Potassium (3.5-5.1) mmol/L Chloride (98-107) mmol/L Carbon Dioxide (22-30) mmol/L Anion Gap mmol/L BUN (9-20) mg/dL Creatinine (0.66-1.25) mg/dL Est GFR (CKD-EPI)AfAm (>60 ml/min/1.73 sqM) Est GFR (CKD-EPI)NonAf (>60 ml/min/1.73 sqM) Glucose (74-99) mg/dL POC Glucose (mg/dL) 109 (70-110) mg/dL POC Glu [employer] ID Anatoliy Talley Plasma Lactic Acid Matthew 1.1 (0.7-2.0) mmol/L Calcium (8.4-10.2) mg/dL Magnesium (1.6-2.3) mg/dL Total Bilirubin (0.2-1.3) mg/dL AST (17-59) U/L ALT (4-49) U/L Alkaline Phosphatase (38-126) U/L Troponin I <0.012 (0.000-0.034) ng/mL Total Protein (6.3-8.2) g/dL Albumin (3.5-5.0) g/dL TSH (0.465-4.680) mIU/L Urine Color Urine Appearance (Clear) Urine pH (5.0-8.0) Ur Specific [place] (1.001-1.035) Urine Protein (Negative) Urine Glucose (UA) (Negative) Urine Ketones (Negative) Urine Blood (Negative) Urine Nitrite (Negative) Urine Bilirubin (Negative) Urine Urobilinogen (<2.0) mg/dL Ur Leukocyte Esterase (Negative) Urine RBC (0-5) /hpf Urine WBC (0-5) /hpf Ur Squamous Epith Cells (0-4) /hpf Amorphous Sediment (None) /hpf Hyaline Casts (0-2) /lpf Urine Mucus (None) /hpf 11/18/23 Range/Units 14:16 WBC (3.8-10.6) k/uL RBC (4.30-5.90) m/uL Hgb (13.0-17.5) gm/dL Hct (39.0-53.0) % MCV (80.0-100.0) fL MCH (25.0-35.0) pg MCHC (31.0-37.0) g/dL RDW (11.5-15.5) % Plt Count (150-450) k/uL MPV Neutrophils % % Lymphocytes % % Monocytes % % Eosinophils % % Basophils % % Neutrophils # (1.3-7.7) k/uL Lymphocytes # (1.0-4.8) k/uL Monocytes # (0-1.0) k/uL Eosinophils # (0-0.7) k/uL Basophils # (0-0.2) k/uL PT (10.0-12.5) sec INR (<1.2) Sodium (137-145) mmol/L Potassium (3.5-5.1) mmol/L Chloride (98-107) mmol/L Carbon Dioxide (22-30) mmol/L Anion Gap mmol/L BUN (9-20) mg/dL Creatinine (0.66-1.25) mg/dL Est GFR (CKD-EPI)AfAm (>60 ml/min/1.73 sqM) Est GFR (CKD-EPI)NonAf (>60 ml/min/1.73 sqM) Glucose (74-99) mg/dL POC Glucose (mg/dL) (70-110) mg/dL POC Glu [employer] ID Plasma Lactic Acid [place] (0.7-2.0) mmol/L Calcium (8.4-10.2) mg/dL Magnesium (1.6-2.3) mg/dL Total Bilirubin (0.2-1.3) mg/dL AST (17-59) U/L ALT (4-49) U/L Alkaline Phosphatase (38-126) U/L Troponin I (0.000-0.034) ng/mL Total Protein (6.3-8.2) g/dL Albumin (3.5-5.0) g/dL TSH (0.465-4.680) mIU/L Urine Color Dark Yellow Urine Appearance Cloudy (Clear) Urine pH 6.0 (5.0-8.0) Ur Specific [place] 1.031 (1.001-1.035) Urine Protein 2+ H (Negative) Urine Glucose (UA) Negative (Negative) Urine Ketones Trace H (Negative) Urine Blood Trace H (Negative) Urine Nitrite Negative (Negative) Urine Bilirubin 1+ H (Negative) Urine Urobilinogen 3.0 (<2.0) mg/dL Ur Leukocyte Esterase Negative (Negative) Urine RBC 2 (0-5) /hpf Urine WBC 3 (0-5) /hpf Ur Squamous Epith Cells <1 (0-4) /hpf Amorphous Sediment Rare H (None) /hpf Hyaline Casts 5 H (0-2) /lpf Urine Mucus Many H (None) /hpf - Radiology Data Radiology results: report reviewed, image reviewed Disposition Clinical Impression: Dizziness, Nicotine dependence Disposition: HOME SELF-CARE Instructions (If sedation given, give patient instructions): Dizziness (ED) Additional Instructions: Return to the emergency department with any new, worsening, or concerning symptoms. You can take the meclizine up to 4 times daily for feelings of dizziness. Make sure you remain well-hydrated. You can see if dietary changes help your symptoms as well. Follow up with your primary care provider in 1-2 days. Prescriptions: Meclizine HCl 25 mg PO QID PRN #30 tab PRN Reason: Vertigo Is patient prescribed a controlled substance at d/c from ED?: No Referrals: Cosme Pradhan MD [Primary Care Provider] - 1-2 days Time of Disposition: 15:03
[2023-11-18] MEDS: SODIUM CHLORIDE 0.9% 1,000 ML IV STA (13:35)
[2023-11-18] MEDS: MECLIZINE 12.5 MG TAB PO STA (13:36)
[2023-11-18 13:42] LABS: Glucose,Whole Blood 109 mg/dL (70-110)
[2023-11-18 14:01] VITALS: BP 139/74; RESP 18
[2023-11-18 14:08] LABS: ALT 21 U/L (4-49); AST 27 U/L (17-59); African American GFR (CKD) >90 (>60 ml/min/1.73 sqM); Albumin 4.1 g/dL (3.5-5.0); Alkaline Phosphatase 99 U/L (38-126); Anion Gap 9 mmol/L; Blood Urea Nitrogen 14 mg/dL (9-20); Calcium 9.2 mg/dL (8.4-10.2); Carbon Dioxide 23 mmol/L (22-30); Chloride 102 mmol/L (98-107); Glucose 99 mg/dL (74-99); Magnesium 1.5 mg/dL (1.6-2.3); Non-African American GFR(CKD) >90 (>60 ml/min/1.73 sqM); Sodium 134 mmol/L (137-145); Total Bilirubin 0.9 mg/dL (0.2-1.3); Total Protein 7.4 g/dL (6.3-8.2)
[2023-11-18 14:12] LABS: Basophils # (A) 0.1 k/uL (0-0.2); Basophils % (A) 1 %; Eosinophils # (A) 0.1 k/uL (0-0.7); Eosinophils % (A) 1 %; HCT 51.8 % (39.0-53.0); HGB 17.2 gm/dL (13.0-17.5); Lymphocytes # (A) 1.7 k/uL (1.0-4.8); Lymphocytes % (A) 18 %; MCH 32.7 pg (25.0-35.0); MCHC 33.2 g/dL (31.0-37.0); MCV 98.5 fL (80.0-100.0); Mean Platelet Volume 7.7; Monocytes # (A) 0.8 k/uL (0-1.0); Monocytes % (A) 9 %; Neutrophils # (A) 6.3 k/uL (1.3-7.7); Neutrophils % (A) 70 %; Platelet Count 320 k/uL (150-450); RBC 5.26 m/uL (4.30-5.90); RDW 13.8 % (11.5-15.5); WBC 9.1 k/uL (3.8-10.6)
--- NOTE | 2023-11-18 14:16 | XR ---
EXAMINATION TYPE: XR chest 2V DATE OF EXAM: 11/18/2023 COMPARISON: NONE TECHNIQUE: PA and lateral views submitted. HISTORY: Dizziness FINDINGS: The lungs are clear and there is no pneumothorax, pleural effusion, or focal pneumonia. Heart size normal and no overt failure. Osseous structures demonstrate hypertrophic and degenerative changes of the spine. Underlying emphysematous changes. Vague nodularity overlying the posterior right eighth ri b measuring 1.2 cm. IMPRESSION: 1. No acute process. Correlate for COPD. 2. Vague nodule overlying the right midlung. Short-term follow-up CT chest could be obtained.
[2023-11-18 14:18] LABS: INR 1.2 (<1.2)
--- NOTE | 2023-11-18 14:26 | CT ---
EXAMINATION TYPE: CT brain wo con DATE OF EXAM: 11/18/2023 COMPARISON: None INDICATION: hypertension DLP: 1168.3 mGycm, Automated exposure control for dose reduction was used. CONTRAST: None CT of the brain is performed utilizing 3 mm thick sections through the posterior fossa and 3 mm thick sections through the remaining calvarium. Study is performed within 24 hours of arrival to the hosp ital. No abnormal hyperdensity is present to suggest an acute intracranial hemorrhage. No mass lesion is evident. No acute infarcts are evident. Ventricles and sulci are appropriate for the patient age. There is a tiny retention cyst within the right maxillary sinus. Mild mucosal thickening is within sc attered anterior ethmoid air cells. Remaining paranasal sinuses and mastoid air cells are clear. IMPRESSION: 1. No acute intracranial process. Follow-up MRI can be performed as clinically indicated. 2. Minimal mucosal thickening within paranasal sinuses.
[2023-11-18 14:27] LABS: Amorphous Sediment,Urine Rare /hpf; Appearance,Urine Cloudy (Clear); Bilirubin,Urine 1+ (Negative); Blood,Urine Trace (Negative); Color,Urine Dark Yellow; Glucose,Urine (UA) Negative (Negative); Hyaline Casts,Urine 5 /lpf (0-2); Ketones,Urine Trace (Negative); Leukocyte Esterase,Urine Negative (Negative); Mucus,Urine Many /hpf; Nitrite,Urine Negative (Negative); Protein,Urine 2+ (Negative); RBC,Urine 2 /hpf (0-5); Specific Gravity,Urine 1.031 (1.001-1.035); Squamous Epithelial Cell,Urine <1 /hpf (0-4); WBC,Urine 3 /hpf (0-5)
[2023-11-18 15:28] VITALS: PULSE 76
== END 2023-11-18 15:16 | disposition home or self-care (01) ==
LOC: EC 13:01
DX: R42 Dizziness and giddiness (principal); F17.200 Nicotine dependence, unspecified, uncomplicated; I10 Essential (primary) hypertension; I45.10 Unspecified right bundle-branch block
CPT/HCPCS: 36415; 70450; 71046; 80053; 81001; 83605; 83735; 84443; 84484; 85025; 85610; 93005; 96360; 99284; 99406

== ENCOUNTER → 2024-05-10 | Outpatient (CLI) | payer BC ==
--- NOTE | 2024-05-10 09:57 | CTL ---
EXAMINATION TYPE: CT Low Dose Lung DATE OF EXAM ORDERED: 05/10/2024 COMPARISON: 03/15/2023 HISTORY: . Low Dose CT Lung Screening CT DLP: 161.[address] CTDI: 4.30 mGy IV CONTRAST USED: None. SCREENING VISIT: First visit COMPARISON: None. TECHNIQUE: Low dose computed tomography scan was performed through the chest at 1 millimeter thick se ctions and reconstructed images in the coronal plane at [address] DIAGNOSTIC QUALITY: Satisfactory FINDINGS: LUNG NODULES: Not presentLeft lung: no nodules identified.Right lung: no nodules identified. LUNGS: COPD: Severity: None Fibrosis: Severity:None Lymph nodes: None Other findings: None RIGHT PLEURAL SPACE: Effusion: None Calcification: None Thickening: None Pneumothorax: None LEFT PLEURAL SPACE: Effusion: None Calcification: None Thickening: None Pneumothorax: None HEART: Heart Size: Mildly enlarged Coronary calcification: Mild Pericardial effusion: None OTHER FINDINGS: Upper abdomen: No significant abnormality Bony thorax: Degenerative changes Supraclavicular region: No significant abnormalityOther: No significant abnormalityI IMPRESSION: No clinically significant nodules seen. FOLLOW UP CT CHEST RECOMMENDATION: Follow-up screening in one year CT LUNG RAD: LUNG RAD CATEGORY: category 1 negative [facility], , 05/10/2024 9:55 AM
== END | disposition home or self-care (01) ==
LOC: RADCTMAIN 09:19
PROVIDERS: ATTEND Family Medicine
CPT/HCPCS: 71271

== ENCOUNTER → 2024-06-21 | Outpatient (CLI) | payer BC ==
--- NOTE | 2024-06-21 11:56 | US ---
EXAMINATION TYPE: US abdomen limited DATE OF EXAM: 06/21/2024 COMPARISON: EXAMINATION TYPE: US abdomen limited DATE OF EXAM: 06/21/2024 COMPARISON: CT abdomen and pelvis 12/27/2014 CLINICAL INDICATION: Male, 58 years old with history of K42.9 UMBILICAL HERNIA WITHOUT OBSTRUCTION; U mbilical hernia lump at umbilicus. TECHNIQUE: Multiple grayscale ultrasound images of the umbilical region with and without Valsalva wa s performed. FINDINGS/IMPRESSION: Scanned area of concern with a complex area measuring 1.8 x .8 cm. There is maria teresa e shadowing identified. Limited due to shadowing of umbilicus. Findings raise suspicion for possible umbilical hernia with underlying mass not excluded. Further evaluation with CT abdomen and pelvis is recommended. [facility], , 06/21/2024 11:53 AM
== END | disposition home or self-care (01) ==
LOC: RADUSWWP 08:33
PROVIDERS: ATTEND Family Medicine
DX: K42.9 Umbilical hernia without obstruction or gangrene (principal)
CPT/HCPCS: 76705

== ENCOUNTER 2024-07-09 11:44 | Emergency (ER) | payer BC ==
[2024-07-09 11:49] VITALS: TEMP 98.6
--- NOTE | 2024-07-09 12:08 | ED ---
Recheck HPI - General Chief Complaint: Recheck/Abnormal Lab/Rx Stated Complaint: Abd labs-sent by PCP Time Seen by Provider: 07/09/24 11:58 Source: patient, RN notes reviewed Mode of arrival: ambulatory Limitations: no limitations - History of Present Illness Initial Comments: This is a 58-year-old male with history of diverticulitis presenting for abno rmal CT scan performed today. Patient states he had a abdominal CT scan performed by Dr. Pradhan for suspected hernia and was discovered that he had colitis with possible perforation. Patient was sent by Dr. Pradhan to the ER for admission following discovery. Patient denies any associated symptoms. Denies fever, chills, chest pain, dyspnea, abdominal pain, N/V/D, constipation, hematochezia, melena. Onset/Timin -: days(s) Associated Symptoms: none - Related Data Home Medications Medication Instructions Recorded Confirmed Omeprazole [PriLOSEC] 20 mg PO AC-BRKFST 12/28/14 08/30/17 Bisoprolol Fumarate [Zebeta] 10 mg PO DAILY 08/30/17 08/30/17 Olmesartan Medoxomil 40 mg PO DAILY 08/30/17 08/30/17 amLODIPine [Norvasc] 10 mg PO DAILY 08/30/17 08/30/17 hydroCHLOROthiazide [Hydrodiuril] 25 mg PO DAILY 08/30/17 08/30/17 Albuterol Sulfate/Budesonide 1 puff INHALATION RT-Q4H PRN 07/09/24 07/09/24 [Airsupra 90-80 Mcg Inhaler] Budesonide/Glycopyr/Formoterol 2 puff INHALATION RT-BID 07/09/24 07/09/24 [Breztri Aerosphere Inhaler] Ibuprofen [Motrin Ib] 600 mg PO BID 07/09/24 07/09/24 Juvenon Bloodflow-7 3 cap PO DAILY 07/09/24 07/09/24 Allergies Allergy/AdvReac Type Severity Reaction Status Date / Time No Known Allergies Allergy Verified 07/09/24 12:59 Review of Systems ROS Statement: Those systems with pertinent positive or pertinent negative responses have been documented in the HPI. ROS Other: All systems not noted in ROS Statement are negative. Past Medical History Past Medical History: GERD/Reflux, Hypertension Additional Past Medical History / Comment(s): Current URI per pt, diverticulitis with small abscess, pt denies COPD. History of Any Multi-Drug Resistant Organisms: None Reported Past Surgical History: Tonsillectomy Additional Past Surgical History / Comment(s): tail bone abscess, rectal fistula, wisdom teeth extraction, colonoscopy. Past Anesthesia/Blood Transfusion Reactions: No Reported Reaction Past Psychological History: No Psychological Hx Reported Smoking Status: Current every day smoker Past Alcohol Use History: Daily, Heavy Past Drug Use History: Marijuana - Past Family History Father Family Medical History: Cancer Additional Family Medical History / Comment(s): leukemia Mother Family Medical History: Cancer Additional Family Medical History / Comment(s): lung cancer Brother(s) Family Medical History: Cancer Additional Family Medical History / Comment(s): prostate cancer General Exam Limitations: no limitations General appearance: alert, in no apparent distress Head exam: Present: atraumatic, normocephalic, normal inspection Eye exam: Present: normal appearance, PERRL, EOMI. Absent: scleral icterus, conjunctival injection, periorbital swelling ENT exam: Present: normal exam, mucous membranes moist Neck exam: Present: normal inspection. Absent: tenderness, meningismus, lymph adenopathy Respiratory exam: Present: normal lung sounds bilaterally. Absent: respiratory distress, wheezes, rales, rhonchi, stridor Cardiovascular Exam: Present: regular rate, normal rhythm, normal heart sounds. Absent: systolic murmur, diastolic murmur, rubs, gallop, clicks GI/Abdominal exam: Present: soft, distended, normal bowel sounds. Absent: tenderness, guarding, rebound, rigid Extremities exam: Present: normal inspection, full ROM, normal capillary refill. Absent: tenderness, pedal edema, joint swelling, calf tenderness Back exam: Present: normal inspection Neurological exam: Present: alert, oriented X3, CN II-XII intact Psychiatric exam: Present: normal affect, normal mood Skin exam: Present: warm, dry, intact, normal color. Absent: rash Course Vital Signs 07/09/24 07/09/24 11:47 12:32 Temperature 98.6 F Pulse Rate 84 76 Respiratory 18 20 Rate Blood Pressure 163/86 160/86 O2 Sat by Pulse 99 97 Oximetry Medical Decision Making - Medical Decision Making Was pt. sent in by a medical professional or institution (Dr., PA, CONTAINERS SALES REPRESENTATIVE, urgent care, hospital, or long-term...) When possible be specific @ -Patient sent by PCP after discovery of diverticulitis and air in abdominal cavity on CT scan. Did you speak to anyone other than the patient for history (EMS, parent, family, police, friend...)? What history was obtained from this source @ -No Did you review nursing and triage notes (agree or disagree)? Why? @ -I reviewed and agree with nursing and triage notes Were old charts reviewed (outside hosp., previous admission, EMS record, old EKG, old radiological studies, urgent care reports/EKG's, long-term records)? Report findings @ -Imaging results from 07/09/2024 reviewed showing sigmoid diverticulitis with foci of air noted in abdominal cavity. Differential Diagnosis (chest pain, altered mental status, abdominal pain women, abdominal pain men, vaginal bleeding, weakness, fever, dyspnea, syncope, headache, dizziness, GI bleed, back pain, seizure, CVA, palpatations, mental health, musculoskeletal)? @ -Differential Abdominal Pain Men: Appendicitis, cholecystitis, diverticulosis, ischemic bowel, pancreatitis, hepatitis, UTI, gastroenteritis, AAA, incarcerated hernia, bowel obstruction, constipation, inflammatory bowel, hepatitis, peptic ulcer disease, splenic infarction, perforated viscus, testicular torsion, this is not meant to be an all-inclusive list EKG interpreted by me (3pts min.). @ -Sinus rhythm with sinus arrhythmia and RBBB. No ST changes or T wave inversion. Ventricular rate 79 bpm, JOSE ROBERTO 124 ms, QRS duration 144 ms, QTc 447 ms. X-rays interpreted by me (1pt min.). @ -None done CT interpreted by me (1pt min.). @ -Abdomen/pelvic CT scan from earlier today, 07/09/2024, shows perforated sigmoid diverticulitis with foci of gas noted. No drainable fluid but could not exclude neoplasm small umbilical hernia with portion of nonobstructed small bowel and hepatic steatosis also noted. U/S interpreted by me (1pt. min.). @ -None done What testing was considered but not performed or refused? (CT, X-rays, U/S, labs)? Why? @ -None What meds were considered but not given or refused? Why? @ -None Did you discuss the management of the patient with other professionals (professionals i.e. , PA, CONTAINERS SALES REPRESENTATIVE, lab, RT, psych nurse, social media developer, rfid developer, teacher, vice squad police officer, case management assistant)? Give summary @ -Spoke to Dr. Pradhan who is aware of patient and accepted admission. Text message sent to Dr. Pradhan notifying of patient leaving AGAINST MEDICAL ADVICE. Was smoking cessation discussed for >3mins.? @ -No Was critical care preformed (if so, how long)? @ -No Were there social determinants of health that impacted care today? How? (Homelessness, low income, unemployed, alcoholism, drug addiction, transportation, low edu. Level, literacy, decrease access to med. care, detention, rehab)? @ -No Was there de-escalation of care discussed even if they declined (Discuss DNR or withdrawal of care, Hospice)? DNR status @ -No What co-morbidities impacted this encounter? (DM, HTN, Smoking, COPD, CAD, Ca ncer, CVA, ARF, Chemo, Hep., AIDS, mental health diagnosis, sleep apnea, morbid obesity)? @ -Diverticulosis/diverticulitis Was patient admitted / discharged? Hospital course, mention meds given and ro [place], prescriptions, significant lab abnormalities, going to OR and other pertinent info. @ -Abdomen/pelvic CT scan from 07/09/2024 shows perforated sigmoid diverticulitis with foci of gas noted. No drainable fluid but could not exclude neoplasm small umbilical hernia with portion of nonobstructed small bowel and hepatic steatosis also noted. Patient denies any current symptoms, no abdominal pain no complaints. Started on IV fluid and Zosyn. Dr. Pradhan notified and patient admitted with surgical consultation. Patient then decided that he would not like to stay or receive surgery since he is not having any symptoms currently. Highly recommended to patient that he stay for surgical consultation due to severity of imaging findings. Advised patient that refusing further medical care prior to definitive treatment may lead to irreversible and mortal outcomes including sepsis, permanent disability and/or . Patient states he understands and would still like to leave AGAINST MEDICAL ADVICE. Dr. Ham notified and aware and Dr. Pradhan texted of patient's decision. Advised patient to return to ER immediately if experiencing any new symptoms including fever and abdominal pain. Undiagnosed new problem with uncertain prognosis? @ -Sigmoid diverticulitis with perforation Drug Therapy requiring intensive monitoring for toxicity (Heparin, Nitro, Insulin, Cardizem)? @ -No Were any procedures done? @ -No Diagnosis/symptom? @ -Sigmoid diverticulitis with perforation Acute, or Chronic, or Acute on Chronic? @ -Acute Uncomplicated (without systemic symptoms) or Complicated (systemic symptoms)? @ -Complicated Side effects of treatment? @ -No Exacerbation, Progression, or Severe Exacerbation? @ -No Poses a threat to life or bodily function? How? (Chest pain, [place], [place], pneumonia, PE, COPD, DKA, ARF, appy, cholecystitis, CVA, Diverticulitis, Homicidal, Danielle cidal, threat to staff... and all critical care pts) @ -Yes perforation can lead to sepsis and ultimately - Lab Data Result diagrams: 07/09/24 12:21 07/09/24 12:21 Lab Results 07/09/24 07/09/24 07/09/24 Range/Units 12:21 12:21 12:21 WBC 15.7 H (3.8-10.6) k/uL RBC 4.32 (4.30-5.90) m/uL Hgb 13.9 (13.0-17.5) gm/dL Hct 43.0 (39.0-53.0) % MCV 99.7 (80.0-100.0) fL MCH 32.1 (25.0-35.0) pg MCHC 32.2 (31.0-37.0) g/dL RDW 16.4 H (11.5-15.5) % Plt Count 349 (150-450) k/uL MPV 6.9 Neutrophils % 80 % Lymphocytes % 12 % Monocytes % 6 % Eosinophils % 1 % Basophils % 0 % Neutrophils # 12.5 H (1.3-7.7) k/uL Lymphocytes # 1.8 (1.0-4.8) k/uL Monocytes # 0.9 (0-1.0) k/uL Eosinophils # 0.2 (0-0.7) k/uL Basophils # 0.0 (0-0.2) k/uL Hypochromasia Slight Anisocytosis Slight Macrocytosis Slight PT 13.4 H (10.0-12.5) sec INR 1.3 H (<1.2) APTT 24.4 (22.0-30.0) sec Sodium 138 (137-145) mmol/L Potassium 3.9 (3.5-5.1) mmol/L Chloride 108 H (98-107) mmol/L Carbon Dioxide 24 (22-30) mmol/L Anion Gap 6 mmol/L BUN 7 L (9-20) mg/dL Creatinine 0.54 L (0.66-1.25) mg/dL Est GFR (CKD-EPI)AfAm >90 (>60 ml/min/1.73 sqM) Est GFR (CKD-EPI)NonAf >90 (>60 ml/min/1.73 sqM) Glucose 109 H (74-99) mg/dL Plasma Lactic Acid Matthew (0.7-2.0) mmol/L Calcium 9.4 (8.4-10.2) mg/dL Total Bilirubin 1.0 (0.2-1.3) mg/dL AST 18 (17-59) U/L ALT 12 (4-49) U/L Alkaline Phosphatase 131 H (38-126) U/L Total Protein 7.8 (6.3-8.2) g/dL Albumin 4.1 (3.5-5.0) g/dL Amylase 50 (30-110) U/L Lipase 49 (23-300) U/L 07/09/ Range/Units 12:21 WBC (3.8-10.6) k/uL RBC (4.30-5.90) m/uL Hgb (13.0-17.5) gm/dL Hct (39.0-53.0) % MCV (80.0-100.0) fL MCH (25.0-35.0) pg MCHC (31.0-37.0) g/dL RDW (11.5-15.5) % Plt Count (150-450) k/uL MPV Neutrophils % % Lymphocytes % % Monocytes % % Eosinophils % % Basophils % % Neutrophils # (1.3-7.7) k/uL Lymphocytes # (1.0-4.8) k/uL Monocytes # (0-1.0) k/uL Eosinophils # (0-0.7) k/uL Basophils # (0-0.2) k/uL Hypochromasia Anisocytosis Macrocytosis PT (10.0-12.5) sec INR (<1.2) APTT (22.0-30.0) sec Sodium (137-145) mmol/L Potassium (3.5-5.1) mmol/L Chloride (98-107) mmol/L Carbon Dioxide (22-30) mmol/L Anion Gap mmol/L BUN (9-20) mg/dL Creatinine (0.66-1.25) mg/dL Est GFR (CKD-EPI)AfAm (>60 ml/min/1.73 sqM) Est GFR (CKD-EPI)NonAf (>60 ml/min/1.73 sqM) Glucose (74-99) mg/dL Plasma Lactic Acid Matthew 1.6 (0.7-2.0) mmol/L Calcium (8.4-10.2) mg/dL Total Bilirubin (0.2-1.3) mg/dL AST (17-59) U/L ALT (4-49) U/L Alkaline Phosphatase (38-126) U/L Total Protein (6.3-8.2) g/dL Albumin (3.5-5.0) g/dL Amylase (30-110) U/L Lipase (23-300) U/L Disposition Clinical Impression: Perforation of sigmoid colon due to diverticulitis Disposition: LEFT AGAINST MEDICAL ADVICE Condition: Stable Is patient prescribed a controlled substance at d/c from ED?: No Time of Disposition: 14:02
[2024-07-09] MEDS: PIPERACILLIN-TAZOBACTAM 3.375 GM in SODIUM CHLORIDE 0.9% 100 ML IVPB STA (12:23)
[2024-07-09] MEDS: SODIUM CHLORIDE 0.9% 1,000 ML IV STA (12:23)
[2024-07-09 12:34] VITALS: BP 160/86; PULSE 76; RESP 20
[2024-07-09] MEDS ORDERED: NALOXONE 0.4 MG/ML 1 ML VIAL IV PRN (12:34)
[2024-07-09 12:36] LABS: Anisocytosis Slight; Basophils % (A) 0 %; Eosinophils # (A) 0.2 k/uL (0-0.7); Eosinophils % (A) 1 %; HGB 13.9 gm/dL (13.0-17.5); Hypochromasia Slight; Lymphocytes # (A) 1.8 k/uL (1.0-4.8); Lymphocytes % (A) 12 %; MCH 32.1 pg (25.0-35.0); MCHC 32.2 g/dL (31.0-37.0); MCV 99.7 fL (80.0-100.0); Macrocytosis Slight; Mean Platelet Volume 6.9; Monocytes # (A) 0.9 k/uL (0-1.0); Monocytes % (A) 6 %; Neutrophils # (A) 12.5 k/uL (1.3-7.7); Neutrophils % (A) 80 %; Platelet Count 349 k/uL (150-450); RBC 4.32 m/uL (4.30-5.90); RDW 16.4 % (11.5-15.5); WBC 15.7 k/uL (3.8-10.6)
[2024-07-09] MEDS ORDERED: SODIUM CHLORIDE 0.9% 1,000 ML IV SCH (12:45)
[2024-07-09 12:46] LABS: INR 1.3 (<1.2); Partial Thromboplastin Time 24.4 sec (22.0-30.0); Prothrombin Time 13.4 sec (10.0-12.5)
[2024-07-09 12:51] LABS: ALT 12 U/L (4-49); AST 18 U/L (17-59); African American GFR (CKD) >90 (>60 ml/min/1.73 sqM); Albumin 4.1 g/dL (3.5-5.0); Alkaline Phosphatase 131 U/L (38-126); Amylase 50 U/L (30-110); Anion Gap 6 mmol/L; Blood Urea Nitrogen 7 mg/dL (9-20); Calcium 9.4 mg/dL (8.4-10.2); Carbon Dioxide 24 mmol/L (22-30); Chloride 108 mmol/L (98-107); Glucose 109 mg/dL (74-99); Lipase 49 U/L (23-300); Non-African American GFR(CKD) >90 (>60 ml/min/1.73 sqM); Potassium 3.9 mmol/L (3.5-5.1); Sodium 138 mmol/L (137-145); Total Protein 7.8 g/dL (6.3-8.2)
[2024-07-09] MEDS ORDERED: PIPERACILLIN-TAZOBACTAM 3.375 GM in SODIUM CHLORIDE 0.9% 100 ML IVPB SCH (21:00)
== END 2024-07-09 13:59 | disposition left against medical advice (07) ==
LOC: EC 11:44 → UNDOADMIN 12:29 → 4SSUR 12:29 → EC 13:59 → UNDODISIN 14:05
DX: K57.20 Diverticulitis of large intestine with perforation and abscess without bleeding (principal); F17.200 Nicotine dependence, unspecified, uncomplicated; Z90.89 Acquired absence of other organs
CPT/HCPCS: 36415; 93005; 80053; 82150; 83605; 83690; 85025; 85610; 85730; 87040; 99283; 96365; J2543

== ENCOUNTER → 2024-07-09 | Outpatient (CLI) | payer BC ==
--- NOTE | 2024-07-09 10:57 | CT ---
EXAMINATION TYPE: CT abdomen pelvis w con CT DLP: 1858 mGycm, Automated exposure control for dose reduction was used. DATE OF EXAM: 07/09/2024 10:39 AM COMPARISON: Abdominal ultrasound 06/21/2024, CT pelvis 09/02/2017 CLINICAL INDICATION:Male, 58 years old with history of K42.9 UMBILICAL HERNIA WITHOUT OBSTRUCTION OR GANG; umbilical hernia without obstruction TECHNIQUE: Standard CT of the abdomen and pelvis following the administration of 100 cc of Isovue 3 00 IV contrast material and oral contrast. Coronal and sagittal reformats were performed. FINDINGS: LOWER CHEST: Minimal linear atelectasis within the right lower lobe and lingula. ABDOMEN LIVER: Diffusely hypoattenuating parenchyma. GALLBLADDER AND BILE DUCTS: Unremarkable. PANCREAS: Unremarkable. SPLEEN: Unremarkable. ADRENAL GLANDS: Unremarkable. KIDNEYS AND URETERS: No evidence of hydronephrosis or renal calculus. The kidneys enhance symmetrical ly. Exophytic right mid kidney 4.6 cm cyst PELVIS BLADDER: Circumferential wall thickening of the urinary bladder with surrounding fat stranding. REPRODUCTIVE: Unremarkable. ABDOMEN & PELVIS STOMACH AND BOWEL: Stomach and duodenum are unremarkable. Enteric contrast reaches the cecum. The rosas endix is within normal limits. Regions of circumferential wall thickening of the sigmoid colon measur ing up to 1.2 cm in thickness identified. There is surrounding fat stranding in the left upper pelvis adjacent to the sigmoid colon with a few foci of gas. No drainable fluid collection. This region chela sures 5.8 x 1 6.7 cm (series 3, image 59) No evidence of bowel obstruction. PERITONEUM: No evidence of pneumoperitoneum or free fluid. VASCULATURE: Mild atherosclerotic calcifications are present throughout the abdominal aorta and its b ranches. No evidence of aortic aneurysm. MUSCULOSKELETAL: No acute osseous abnormalities. Degenerative changes of the pubic symphysis and SI j oints. LYMPH NODES: No evidence for lymphadenopathy. SOFT TISSUE/ABDOMINAL WALL: Fat filled bilateral inguinal hernia. Small umbilical hernia with defect measuring up to 1.5 cm in diameter. A portion of nonobstructed small bowel is identified at its openi ng. IMPRESSION: 1. Regions of wall thickening involving the sigmoid colon with adjacent confluent fat stranding with foci of gas. Findings are concerning for contained perforated sigmoid colitis/diverticulitis with ph legmon. No drainable fluid collection. Underlying neoplasm is not entirely excluded. Surgical consult ation is recommended. 2. Circumferential wall thickening of the urinary bladder which may reactive to #1. Correlate with ur inalysis. 3. Small umbilical hernia containing a portion of nonobstructive small bowel at its opening. 4. Hepatic steatosis. A Red level critical message alert has been initiated for Cosme Pradhan MD via the [employer] System on 07/09/2024 10:55 AM. This message alert has been sent to Cosme Pradhan MD via the preferences provided by the clinician for the receipt of Radiology Critical Findings. Message ID [id number]. [facility], , 07/09/2024 10:55 AM
== END | disposition home or self-care (01) ==
LOC: RADCTMAIN 08:44
PROVIDERS: ATTEND Family Medicine
DX: K42.9 Umbilical hernia without obstruction or gangrene (principal); K76.0 Fatty (change of) liver, not elsewhere classified; K63.89 Other specified diseases of intestine; N32.89 Other specified disorders of bladder
CPT/HCPCS: 74177; Q9967